=== PATIENT | male | born 1955 | race Caucasian/White ===

== ENCOUNTER 2019-01-24 18:02 | Inpatient (IN) | payer MEDICARE, OTHER ==
[~2019-01-24] VITALS: Ht 167.6 cm; Wt 68.0 kg
--- NOTE | ~2019-01-24 | HEMODYNAMI ---
PATIENT:LIDIA GOFF MEDICAL RECORD: [id number] : 51 LOCATION:[facility] D.2137 ADMISSION DATE: 01/24/19 Generatedon:02/07/201914:07 Patient name: LIDIA GOFF Patient #: [id number] SSN: : 1955 Date of study: 02/07/2019 Page: Of Hemodynamic Procedure Report Patient Data Patient Demographics Procedure consent was obtained First Name: LIDIA Gender: Male Last Name: SHELL : 1955 [facility] Initial: L Age: 63 year(s) Patient #: [id number] Race: Unknown Additional ID: [id number] Contact details [address]: [address] [place] [address] State: [place] City: [place] Zip code: [address] Past Medical History Allergies Allergen Reaction Date Comments Reported Other allergy 02/01/2019 BACTRIM AND SULFA Admission Admission Data Admission Date: 01/24/2019 Admission Time: 23:42 Room #: 2137 Procedure Procedure Types Cath Procedure Peripheral Cath Diagnostic Procedure Biliary Cholangio Thru Existing Procedure Description Procedure Date Procedure Date: 02/07/2019 Procedure Start Time: 11:07 Procedure Staff Name Function Romario Hagen MD Performing Physician José Luis Garcia RT Monitor Fuentes Hurtado Jr, CRNA Additional personnel Radha Merchant RN Nurse Shy Bean RN Nurse OK GREGORY RT Scrub Procedure Data Cath Procedure Fluoroscopy Diagnostic fluoroscopy Total fluoroscopy Time: 37 time: 37 min min Diagnostic fluoroscopy Total fluoroscopy dose: dose: 1461 mGy 1461 mGy Contrast Material Contrast Material Type Amount (ml) Isovue 300 50 Procedure Medications Medication Administration Route Dosage Lidocaine 1% added to field 20 Heparin Flush Bag added to field 3 bags (1000units/500ml NS) Rocephin I.V. 2 g Hemodynamics Rest Pre Cath Intra NCS Post Cath Medications Time Medication Route Dose Verified Delivered Reason Notes Effec tiveness by by 10:58:00 Lidocaine 1% added 20ml Romario Doss used for to vial Hieu Hagen MD procedure field TATE 10:58:22 Heparin Flush added 3 Romario Romario used for Bag to bags Hieu Hagen MD procedure (1000units/500ml field TATE NS) 11:13:05 Rocephin I.V. 2g Romario Radha Per Mayur Hagen RN physician Procedure Log Time Note 10:34:38 Shy Bean RN sent for patient. Start room use. 10:34:50 Time tracking: Regular hours (M-F 7:00 - 5:00) 10:34:55 Plan of Care:Hemodynamics will remain stable., Cardiac rhythm will remain stable., Comfort level will be maintained., Respiratory function will remain adequate., Patient/ family verbilizes understanding of procedure., Procedure tolerated without complication., Recovers from procedure without complications.. 10:35:02 Patient received from [place] to IR Alert and oriented. Tansferred to table in Supine position. 10:35:04 Warm blankets applied, and oneida hugger turned on for patient comfort. 10:35:05 Correct patient and procedure confirmed by team. 10:35:07 Signed procedure consent form obtained from patient. 10:35:08 - 10:35:09 Full Disclosure recording started 10:35:19 H&P Date Dictated: 02/07/2019 Within 30 days and on chart.. 10:35:21 - 10:35:42 SEE ANESTHESIA NOTE FOR PRE PROCEDURE ANESTHESIA 10:37:29 Fuentes Hurtado Jr, CRNA present and monitoring patient for TIVA. 10:37:48 Use device set IR Diagnostic 10:37:50 Sterile Angiographic Pack opened to sterile field. 10:37:51 Bag Decanter (2002S) opened to sterile field. 10:37:52 Tegaderm 4 x 4 (1626W) opened to sterile field. 10:58:00 Lidocaine 1% 20ml vial added to field was administered by Romario Hagen MD; used for procedure; 10:58:22 Heparin Flush Bag (1000units/500ml NS) 3 bags added to field was administered by Romario Hagen MD; used for procedure; 10:59:39 Right Abdomen was prepped with chlora-prep and draped in sterile fashion. 10:59:41 Alarms reviewed by R. N. 10:59:42 Alarms reviewed by R. N. 11:06:41 Physician arrived 11:06:42 --------ALL STOP TIME OUT------ 11:06:43 Final Timeout: patient, procedure, and site verified with staff and physician. All members of the team are in agreement. 11:06:49 Right abdomen site verified by team. 11:06:53 Maximum allowable Isovue 300 dose 300ml. Physician notified. (300ml for normal creatinines. For patients with creatinine of 1.7 or higher multiply weight(kg) x 5 divided by creatinine.) 11:06:57 Fire Safety Assessment: A--An alcohol-based skin anteseptic being used preoperatively., C--Open oxygen or nitrous oxide is being used. 11:07:01 Sedation plan: General Anesthesia Medication:General Anesthesia 11:07:06 Procedure started. 11:07:11 Local anesthetic to Abdominal area with Lidocaine 1% by Romario Hagen MD.INITIAL ACCESS ONLY 11:07:24 BAG, DRAINAGE EMPTY 600ML W/BHUPINDER (ZJV731) opened to sterile field. 11:07:25 STOPCOCK 1-Way Male Rotating (W46653) opened to sterile field. 11:07:25 Cook BILIARY 12 FR drainage catheter (L41969) opened to sterile field. 11:07:26 COOK 12FR 45 CM ANLO SHEATH opened to sterile field. 11:07:26 COOK 12FR 45 CM ANLO SHEATH opened to sterile field. 11:13:05 Rocephin 2g I.V. was administered by Radha Merchant RN; Per physician; 11:13:25 AMPLATZ Super stiff 180cm wire ([id number]) opened to sterile field. 11:13:26 GLIDE CATHETER 5FR ANGLED 65cm (CG507) opened to sterile field. 11:13:27 GLIDE WIRE Angled Super Stiff 180cm (JY9752) opened to sterile field. 11:16:00 CHOICE PT Extra Support J 300cm guide wire ([id number]) opened to steril e field. 13:15:05 STOPCOCK 3-Way Large Bore (O98844) opened to sterile field. 13:23:03 Lanie 5Fr OTW embolectomy catheter opened to sterile field. 13:27:54 SNARE GOOSENECK 20MM LOOP 120C opened to sterile field. 13:43:59 Procedure ended.(Physican Out) 13:44:27 Fluoroscopy time 37.00 minutes. 13:44:46 Fluoroscopy dose: 1461 mGy 13:44:46 Flurop Dose total: 1461 13:44:48 Sharps counted by scrub and verified by R.N. 13:49:27 SEE ANESTHESIA NOTE FOR POST PROCEDURE ANESTHESIA 13:49:34 Post-op/insertion site Right Abdominal area dressed using a 4 x 4 and Tegaderm. 13:49:49 Post Abdominal area:stable 13:50:41 Procedure and supply charges have been captured, reviewed, submitted an d are correct. 13:57:56 Contrast amount:Isovue 300 50ml. 14:06:23 Report given to Recovery Room. 14:06:31 Patient transfered to Recovery Room with Bed. Device Usage Item Name Manufacture Quantity Catalog Number Hospital Part Current Mini [facility] Lot# / Charge Number Stock Stock Serial# Code Sterile Cardinal 1 [id number] [id number] 5 Angiographic Health Pack Bag Decanter Microtek 1 [id number] 80454 748676 5 () Medical Inc. Tegaderm 4 x 3M 1 1626W 601066 689931 476349 5 4 (1626W) BAG, Merit 1 [id number] 524044 661759 059757 5 DRAINAGE Medical EMPTY 600ML W/BHUPINDER (MFG279) STOPCOCK Cook Medical 1 [id number] 847733 50470 913413 5 1-Way Male Rotating (G44408) Cook BILIARY Cook Medical 1 N96587 974648 510331 183706 5 [id number] 12 FR drainage catheter (S85324) COOK 12FR 45 Cook Medical 2 P18495 522958 940243 739513 5 CM ANLO SHEATH AMPLATZ [place] 1 [id number] 416904 949327 384449 5 [id number] Super stiff Scientific 180cm wire ([id number]) GLIDE Terumo 1 CG507 926768 180995 5 CATHETER 5FR ANGLED 65cm (CG507) GLIDE WIRE Terumo 1 SO2350 562490 035687 5 Angled Super Stiff 180cm (ED6982) CHOICE PT [place] 1 [id number] 706831 640650 531293 5 [id number] Extra Scientific Support J 300cm guide wire ([id number]) [facility] 1 F35133 876256 4376 868303 [id number] 3-Way Large Bore (E72432) Lanie 5Fr Garber 1 [id number] 123090 564466 520939 5 [facility] Lifesciences embolectomy catheter SNARE Medtronic 1 BZ0397 073473 854302 873527 5 [id number] GOOSENECK 20MM LOOP 120C Signature Audit [place] Stage Time Signature Unsigned Intra-Procedure 02/07/2019 José Luis 2:07:11 PM Krissyield RT (R) (CV) Signatures Monitor : José Luis Signature : Jose RT Date : Time : [address] [place] [address]
--- NOTE | ~2019-01-24 | HEMODYNAMI ---
PATIENT:LIDIA GOFF MEDICAL RECORD: [id number] : 51 [facility] AD[facility]ION DATE: 01/24/19 Generatedon:02/01/201916:17 Patient name: LIDIA GOFF Patient #: [id number] SSN: : 1955 Date of study: 02/01/2019 Page: Of Hemodynamic Procedure Report Patient Data Patient Demographics Procedure consent was obtained First Name: LIDIA Gender: Male Last Name: SHELL : 1955 [facility] Initial: L Age: 63 year(s) Patient #: [id number] Race: Unknown Additional ID: [id number] Contact details Address: [address] [place] [address] State: [place] City: [place] Zip code: [address] Past Medical History Allergies Allergen Reaction Date Comments Reported Other allergy 02/01/2019 BACTRIM AND SULFA Admission Admission Data Admission Date: 01/24/2019 Admission Time: 23:42 Room #: D.2137 Procedure Procedure Types Cath Procedure Peripheral Cath Diagnostic Procedure Biliary Procedure Description Procedure Date Procedure Date: 02/01/2019 Procedure Start Time: 14:01 Procedure Staff Name Function Romario Hagen MD Performing Physician José Luis Garcia RT Monitor OK GREGORY RT Scrub Shy Bean RN Nurse Radha Merchant RN Nurse Procedure Data Cath Procedure Fluoroscopy Diagnostic fluoroscopy Total fluoroscopy Time: time: 36.9 min 36.9 min Diagnostic fluoroscopy Total fluoroscopy dose: 717 dose: 717 mGy mGy Contrast Material Contrast Material Type Amount (ml) Isovue 300 115 Procedure Medications Medication Administration Route Dosage Versed I.V. 1 mg Fentanyl I.V. 50 mcg Heparin Flush Bag added to field 1 bags (1000units/500ml NS) Versed I.V. 1 mg Fentanyl I.V. 50 mcg Lidocaine 1% added to field 20 Versed I.V. 1 mg Fentanyl I.V. 50 mcg Rocephin I.V. 2 Versed I.V. 1 mg Fentanyl I.V. 50 mcg Versed I.V. 1 mg Fentanyl I.V. 50 mcg Versed I.V. 1 mg Fentanyl I.V. 50 mcg Hemodynamics Rest Heart Rate: 66 (bpm) Snapshots Pre Cath Intra NCS Post Cath Vital Signs Time Heart Resp SPO2 etCO2 NIBP (mmHg) Rhythm Pain Sedation Rate (ipm) (%) (mmHg) Status Level (bpm) 13:47:53 73 19 99 0 164/83(121) NSR 0 (11) 10(A) , No pain 13:52:15 67 13 100 0 164/75(122) NSR 0 (11) 10(A) , No pain 13:56:35 66 19 100 0 168/74(119) NSR 0 (11) 9(A) , No pain 14:00:57 64 12 99 0 165/74(119) NSR 0 (11) 9(A) , No pain 14:05:17 66 18 100 19.4 170/76(121) NSR 0 (11) 8(A) , No pain 14:09:43 67 9 100 27.6 153/65(91) NSR 0 (11) 8(A) , No pain 14:14:01 81 5 100 38.8 159/72(95) NSR 0 (11) 8(A) , No pain 14:18:22 78 6 100 38.8 156/70(105) NSR 0 (11) 8(A) , No pain 14:23:20 75 7 100 38.1 Measuring NSR 0 (11) 8(A) , No pain 14:23:45 77 7 100 38.1 140/62(108) NSR 0 (11) 8(A) , No pain 14:28:01 85 7 100 29.1 151/64(111) NSR 0 (11) 8(A) , No pain 14:32:19 84 8 100 29.8 155/72(116) NSR 0 (11) 8(A) , No pain 14:36:39 85 9 100 35.8 161/69(111) NSR 0 (11) 8(A) , No pain 14:41:01 84 10 100 33.6 157/68(104) NSR 0 (11) 8(A) , No pain 14:45:24 80 9 100 35.8 145/68(105) NSR 0 (11) 8(A) , No pain 14:49:38 78 15 100 31.4 159/75(111) NSR 0 (11) 8(A) , No pain 14:53:58 79 13 27.6 167/70(107) NSR 0 (11) 8(A) , No pain 14:58:22 82 19 32.8 156/72(97) NSR 0 (11) 8(A) , No pain 15:02:44 84 16 100 32.8 166/66(105) NSR 0 (11) 8(A) , No pain 15:07:09 85 12 99 39.6 144/68(110) NSR 0 (11) 8(A) , No pain 15:11:23 80 12 97 37.3 153/79(98) NSR 0 (11) 8(A) , No pain 15:15:41 79 15 99 29.1 162/74(104) NSR 0 (11) 8(A) , No pain 15:20:03 79 10 35.1 158/71(124) NSR 0 (11) 8(A) , No pain 15:24:21 76 13 95 41.9 166/76(108) NSR 0 (11) 8(A) , No pain 15:28:45 72 12 100 38.1 164/71(112) NSR 0 (11) 8(A) , No pain 15:33:05 77 13 100 32.1 182/81(119) NSR 0 (11) 8(A) , No pain 15:37:32 86 8 100 42.6 173/81(109) NSR 0 (11) 8(A) , No pain 15:41:54 83 9 100 38.8 181/82(121) NSR 0 (11) 8(A) , No pain 15:46:20 83 8 100 42.6 154/66(125) NSR 0 (11) 8(A) , No pain 15:51:19 87 11 100 41.1 Measuring NSR 0 (11) 8(A) , No pain 15:51:35 86 12 100 40.3 184/78(127) NSR 0 (11) 8(A) , No pain 15:56:04 89 9 100 41.8 144/69(100) NSR 0 (11) 8(A) , No pain 16:00:20 92 9 100 44.1 155/67(106) NSR 0 (11) 8(A) , No pain 16:04:38 88 9 100 43.3 146/64(86) NSR 0 (11) 8(A) , No pain 16:08:56 86 9 100 35.8 148/66(104) NSR 0 (11) 8(A) , No pain 16:13:12 86 10 100 34.3 165/74(110) NSR 0 (11) 8(A) , No pain Medications Time Medication Route Dose Verified Delivered Reason Notes Effe ctiveness by by 13:55:32 Lidocaine 1% added 20ml Romario Doss for local to vial Hieu Hagen MD anesthetic field TATE 13:55:33 Heparin Flush added 1 Romario Doss used for Bag to bags Hieu Hagen MD procedure (1000units/500ml field TATE NS) 14:04:58 Versed I.V. 1 mg Romario Begum for Vikas Hagen RN sedation 14:05:14 Fentanyl I.V. 50 Romario Begum for mcg Vikas Hagen RN sedation 14:10:37 Versed I.V. 1 mg Romario Doss for Hieu Hagen MD sedation 14:10:47 Fentanyl I.V. 50 Romario Doss for Hieu Whitten MD sedation 14:23:38 Versed I.V. 1 mg Romario Begum for Vikas Hagen RN sedation 14:23:51 Fentanyl I.V. 50 Romario Begum for mcg Vikas Hagen RN sedation 14:33:51 Rocephin I.V. 2 gm Romario Begum Per Vikas Hagen RN physician 14:54:07 Versed I.V. 1 mg Romario Begum for Vikas Hagen RN sedation 14:54:17 Fentanyl I.V. 50 Romario [place]ody for mcg Vikas Hagen RN sedation 15:10:54 Versed I.V. 1 mg Romario Begum for Vikas Hagen RN sedation 15:11:04 Fentanyl I.V. 50 Romario Begum for mcg Vikas Hagen RN sedation 15:27:38 Versed I.V. 1 mg Romario Begum for Vikas Hagen RN sedation 15:27:50 Fentanyl I.V. 50 Romario Begum for mcg Vikas Hagen RN sedation Procedure Log Time Note 13:20:30 José Luis Garcia RT (R) (CV) sent for patient. Start room use. 13:20:42 Time tracking: Regular hours (M-F 7:00 - 5:00) 13:20:47 Plan of Care:Hemodynamics will remain stable., Cardiac rhythm will remain stable., Comfort level will be maintained., Respiratory function will remain adequate., Patient/ family verbilizes understanding of procedure., Procedure tolerated without complication., Recovers from procedure without complications.. 13:20:57 Patient received from [place] to IR Alert and oriented. Tansferred to table in Supine position. 13:20:58 Correct patient and procedure confirmed by team. 13:21:04 Signed procedure consent form obtained from patient. 13:21:05 ECG and BP/O2 sat monitors applied to patient. 13:21:06 Full Disclosure recording started 13:21:07 - 13:21:12 H&P Date Dictated: 02/01/2019 Within 30 days and on chart.. 13:21:12 Pre-procedure instructions explained to patient. 13:21:13 Pre-op teaching completed and patient verbalized understanding. 13:21:16 Family unavailable. 13:21:18 Patient NPO since Midnight. 13:21:23 Use device set IR Diagnostic 13:21:25 Bag Decanter (2002S) opened to sterile field. 13:21:25 Sterile Angiographic Pack opened to sterile field. 13:21:25 Tegaderm 4 x 4 (1626W) opened to sterile field. 13:33:32 Patient allergic to Other allergyBACTRIM AND SULFA 13:45:35 Is the patient allergic to Iodine/contrast media? No. 13:45:36 Is patient on blood thinner?No 13:45:38 Patient diabetic? Yes. 13:45:39 If diabetic: On Metformin? No 13:45:40 - 13:45:40 ----Pre-sedation anethsthesia assessment.---- 13:45:43 Previous problem with sedation/anesthesia? No ? 13:45:44 Snore? No 13:45:46 Sleep apnea? No 13:45:48 Deviated septum? No 13:45:50 Opens mouth fully? Yes 13:45:52 Sticks out tongue? Yes 13:45:54 Airway obstruction? No ? 13:45:57 Dentures? No ? 13:45:59 - 13:46:03 Patient pain scale 0/10 NO PAIN. 13:46:12 IV patent on arrival in left hand with 0.9% NaCl at [facility]. 13:46:16 Sharps counted by scrub and verified by R.NKaushik 13:46:17 Alarms reviewed by R. N. 13:46:23 Right abdomen area was prepped with chlora-prep and draped in sterile fashion 13:46:43 Baseline sample Acquired. :46:43 Vital chart was started 13:55:32 Lidocaine 1% 20ml vial added to field was administered by Romario Hagen MD; for local anesthetic; 13:55:33 Heparin Flush Bag (1000units/500ml NS) 1 bags added to field was administered by Romario Hagen MD; used for procedure; 14:00:39 Physician arrived 14:00:40 --------ALL STOP TIME OUT------ 14:00:41 Final Timeout: patient, procedure, and site verified with staff and physician. All members of the team are in agreement. 14:00:57 Right abdomen site verified by team. 14:01:04 Maximum allowable Isovue 300 dose 300ml. Physician notified. (300ml for normal creatinines. For patients with creatinine of 1.7 or higher multiply weight(kg) x 5 divided by creatinine.) 14:01:14 Fire Safety Assessment: A--An alcohol-based skin anteseptic being used preoperatively., C--Open oxygen or nitrous oxide is being used. 14:01:18 Sedation plan: IV Moderate Sedation Medication:Versed, Fentanyl 14:01:44 Procedure started. 14:01:48 Local anesthetic to Abdominal area with Lidocaine 1% by Romario Hagen MD.INITIAL ACCESS ONLY 14:01:51 KIT, INTRODUCER ACCUSTICK II W/C ([id number]) opened to sterile field. 14:01:53 IV Extension Set opened to sterile field. 14:02:02 CHIBA 22 X 15 needle opened to sterile field. 14:04:58 Versed 1 mg I.V. was administered by Shy Bean RN; for sedation; 14:05:14 Fentanyl 50 mcg I.V. was administered by Shy Bean RN; for sedation ; 14:10:37 Versed 1 mg I.V. was administered by Romario Hagen MD; for sedation; 14:10:47 Fentanyl 50 mcg I.V. was administered by Romario Hagen MD; for sedation; 14:22:47 CHIBA 22 X 15 needle opened to sterile field. 14:23:38 Versed 1 mg I.V. was administered by Shy Bean RN; for sedation; 14:23:51 Fentanyl 50 mcg I.V. was administered by Shy Bean RN; for sedation ; 14:33:51 Rocephin 2 gm I.V. was administered by Shy Bean RN; Per physician; 14:54:07 Versed 1 mg I.V. was administered by Shy Bean RN; for sedation; 14:54:17 Fentanyl 50 mcg I.V. was administered by Shy Bean RN; for sedation ; 15:05:27 CHIBA 22 X 15 needle opened to sterile field. 15:10:54 Versed 1 mg I.V. was administered by Shy Bean RN; for sedation; 15:11:04 Fentanyl 50 mcg I.V. was administered by Shy Bean RN; for sedation ; 15:18:09 NITINOL .018 80cm wire (F058557) opened to sterile field. 15:23:55 NITINOL .018 80cm wire (A369130) opened to sterile field. 15:26:20 CHIBA 22 X 15 needle opened to sterile field. 15:27:38 Versed 1 mg I.V. was administered by Shy Bean RN; for sedation; 15:27:50 Fentanyl 50 mcg I.V. was administered by Shy Bean RN; for sedation ; 15:30:46 STOPCOCK 3-Way Large Bore (R78119) opened to sterile field. 15:31:50 GLIDE WIRE Angled Super Stiff 180cm (VL3921) opened to sterile field. 15:32:56 GLIDE CATHETER 5FR ANGLED 65cm (CG507) opened to sterile field. 15:37:10 AMPLATZ Super stiff 180cm wire ([id number]) opened to sterile field. 15:37:10 ARROW SUPERFLEX 8FR 45CM sheath opened to sterile field. 15:41:13 Cook BILIARY 10.2 FR drainage catheter (L28506) opened to sterile field . 15:45:57 INFLATOR BasixTOUCH (SW4302) opened to sterile field. 15:46:33 Inflate balloon Inflation number: 1 A Evercross 10 x 40 x 135 Balloon ([id number]) was prepped and advanced across the Undefined1, then inflated to 8 YINA for 0:07 (min:sec). 15:55:59 GELACIO ALVARADO FROM ANESTHESIA HERE FOR TIVA AT 1545 15:59:47 BAG, DRAINAGE EMPTY 600ML W/BHUPINDER (ENM735) opened to sterile field. 15:59:57 Procedure ended.(Physican Out) 16:00:26 Fluoroscopy time 36.90 minutes. 16:00:31 Fluoroscopy dose: 717 mGy 16:00:31 Flurop Dose total: 717 16:00:33 Sharps counted by scrub and verified by R.N. 16:00:34 Insertion/operative site no bleeding no hematoma. 16:00:40 Post-op/insertion site Right Abdominal area dressed using a 4 x 4 and Tegaderm. 16:00:47 Post Abdominal area:stable 16:06:54 Contrast amount:Isovue 300 115ml. 16:06:59 Procedure and supply charges have been captured, reviewed, submitted an d are correct. 16:16:21 Report given to [facility]. 16:16:24 Patient transfered to [facility] with Bed. 16:17:51 Vital chart was stopped Intervention Summary Intervention Notes Time ActionType Lesion and Equipment Used Action# Pressure Duration Attributes 15:46:33 Inflate Undefined1 Evercross 10 x 1 8 00:07 balloon 40 x 135 Balloon ([id number]) Device Usage Item Name Manufacture Quantity Catalog Number Hospital Part Current M inimal Lot# / Charge Number Stock Stock Serial# Code Bag Decanter Microtek 1 [id number] 86848 215522 5 () edulio Inc. Sterile Cardinal 1 [id number] 113430 241816 5 Angiographic Health Pack Tegaderm 4 x 4 3M 1 1626W 552703 710138 395969 5 (1626W) KIT, INTRODUCER [place] 1 [id number] 113246 721318 575142 5 [id number] ACCUSTICK II Scientific W/C ([id number]) IV Extension Hospira 1 81706-34 759874 41472 584274 5 [id number] Set CHIBA 22 X 15 Cook Medical 4 Q94217 605549 530694 5 2938595 needle 1627162 9181308 NITINOL .018 Medtronic 2 Z800451 473697 996420 5 [id number] 80cm wire [id number] (L703739) STOPCOCK 3-Way [place] [facility] 1 G74075 469537 4554 568602 5 [id number] Large Bore (L87498) GLIDE WIRE Terumo 1 SS8085 175492 896857 5 Angled Super Stiff 180cm (NV5407) GLIDE CATHETER Terumo 1 CG507 615912 091655 5 5FR ANGLED 65cm (CG507) AMPLATZ Super [place] 1 [id number] 946791 262334 431933 5 [id number] stiff 180cm Scientific wire ([id number]) ARROW SUPERFLEX Teleflex 1 CL-03476 155903 898701 5 [id number] 8FR 45CM sheath Cook BILIARY Cook Medical 1 D49446 588927 659656 390204 5 1381779 10.2 FR drainage catheter (Z19591) INFLATOR Merit 1 DV9033 705149 617396 773500 5 BasixTOUCH Medical (KL2483) [place] 10 x Medtronic 1 [id number] 048102 271000 270509 5 40 x 135 Balloon ([id number]) BAG, DRAINAGE Merit 1 KRA663 361672 748401 774447 5 EMPTY 600ML Medical W/BHUPINDER (GQE475) Signature Audit [place] Stage Time Signature Unsigned Intra-Procedure 02/01/2019 José Luis 4:17:46 PM Jose RT (R) (CV) Signatures Monitor : José Luis Signature : Jose RT Date : Time : [id number] [place] [address]
--- NOTE | ~2019-01-24 | HEMODYNAMI ---
PATIENT:LIDIA GOFF MEDICAL RECORD: [id number] : 51 LOCATION:[facility] D.2137 ADMISSION DATE: 01/24/19 Generatedon:02/05/201912:54 Patient name: LIDIA GOFF Patient #: [id number] SSN: : 1955 Date of study: 02/05/2019 Page: Of Hemodynamic Procedure Report Patient Data Patient Demographics Procedure consent was obtained First Name: LIDIA Gender: Male Last Name: SHELL : 1955 [facility] Initial: L Age: 63 year(s) Patient #: [id number] Race: Unknown Additional ID: [id number] Contact details [address]: [address] [place] [address] State: [place] City: [place] Zip code: [address] Past Medical History Allergies Allergen Reaction Date Comments Reported Other allergy 02/01/2019 BACTRIM AND SULFA Admission Admission Data Admission Date: 01/24/2019 Admission Time: 23:42 Room #: 2137 Procedure Procedure Types Cath Procedure Peripheral Cath Diagnostic Procedure Biliary Cholangio Thru Existing Procedure Description Procedure Date Procedure Date: 02/05/2019 Procedure Start Time: 11:27 Procedure Staff Name Function Romario Hagen MD Performing Physician José Luis Garcia RT Monitor Radha Merchant RN Nurse OK GREGORY RT Scrub Dhruv Silva CRNA Additional personnel Procedure Data Cath Procedure Fluoroscopy Diagnostic fluoroscopy Total fluoroscopy Time: time: 23.9 min 23.9 min Diagnostic fluoroscopy Total fluoroscopy dose: 847 dose: 847 mGy mGy Contrast Material Contrast Material Type Amount (ml) Isovue 300 20 Diagnostic catheters Device Type Used For End Catheter Placement Angiodynamics SOS OMNI 2 NON B 5FR 65CM catheter ([id number]) Procedure Medications Medication Administration Route Dosage Heparin Flush Bag added to field 1 bags (1000units/500ml NS) Lidocaine 1% added to field 20 Hemodynamics Rest Pre Cath Intra NCS Post Cath Medications Time Medication Route Dose Verified Delivered Reason Notes Effec tiveness by by 11:25:12 Heparin Flush added 1 Romario Doss used for Bag to bags Hieu Hagen MD procedure (1000units/500ml field NS) 11:25:29 Lidocaine 1% added 20ml Romario Doss used for to vial Hieu Hagen MD procedure field Procedure Log Time Note 10:42:17 José Luis Garcia RT (R) (CV) sent for patient. Start room use. 10:42:19 Time tracking: Regular hours (M-F 7:00 - 5:00) 10:43:03 Patient received from Pivot II to IR Alert and oriented. Tansferred to table in Supine position. 10:43:13 Warm blankets applied, and oneida hugger turned on for patient comfort. 10:43:14 Correct patient and procedure confirmed by team. 10:43:21 Signed procedure consent form obtained from patient. 10:49:40 Full Disclosure recording started 10:49:40 - 10:50:02 SEE ANESTHESIA NOTE FOR PRE PROCEDURE ANESTHESIA 10:50:04 - 11:14:14 Pre-procedure instructions explained to patient. 11:14:15 Pre-op teaching completed and patient verbalized understanding. 11:14:20 Use device set IR Diagnostic 11:14:23 Bag Decanter (2002S) opened to sterile field. 11:14:23 Sterile Angiographic Pack opened to sterile field. 11:14:23 Tegaderm 4 x 4 (1626W) opened to sterile field. 11:14:34 Alarms reviewed by RKaushik N. 11:14:35 Sharps counted by scrub and verified by R.N. 11:14:41 Right Abdomen was prepped with chlora-prep and draped in sterile fashion. 11:15:05 Dhruv Silva CRNA present and monitoring patient for TIVA. 11:25:12 Heparin Flush Bag (1000units/500ml NS) 1 bags added to field was administered by Romario Hagen MD; used for procedure; 11:25:29 Lidocaine 1% 20ml vial added to field was administered by Romario Hagen MD; used for procedure; 11:26:54 Physician arrived 11::55 --------ALL STOP TIME OUT------ 11::56 Final Timeout: patient, procedure, and site verified with staff and physician. All members of the team are in agreement. 11:27:00 Right abdomen site verified by team. 11:27:08 Maximum allowable Isovue 300 dose 300ml. Physician notified. (300ml for normal creatinines. For patients with creatinine of 1.7 or higher multiply weight(kg) x 5 divided by creatinine.) 11:27:17 Fire Safety Assessment: A--An alcohol-based skin anteseptic being used preoperatively., C--Open oxygen or nitrous oxide is being used. 11:27:22 Sedation plan: General Anesthesia Medication:General Anesthesia 11:27:51 Procedure started. 11:35:33 STOPCOCK 1-Way Male Rotating (H85815) opened to sterile field. 11:37:03 GLIDE CATHETER 5FR ANGLED 65cm (CG507) opened to sterile field. 11:37:03 GLIDE WIRE Angled Super Stiff 180cm (EC9045) opened to sterile field. 11:39:59 ARROW SUPERFLEX 8FR 45CM sheath opened to sterile field. 11:40:19 AMPLATZ Super stiff 180cm wire ([id number]) opened to sterile field. 11:40:19 BAG, DRAINAGE EMPTY 600ML W/BHUPINDER (JXW535) opened to sterile field. 11:40:20 Cook BILIARY 10.2 FR drainage catheter (D92257) opened to sterile field . 11:42:27 Lanie 5Fr OTW embolectomy catheter opened to sterile field. 11:42:29 TORQUE DEVICE PLASTIC .038 ( TD01) opened to sterile field. 11:56:47 CHOICE PT Extra Support J 300cm guide wire ([id number]) opened to steril e field. 11:57:13 Ensnare enodo system 12-20 opened to sterile field. 12:05:12 SNARE GOOSENECK 20MM LOOP 120C opened to sterile field. 12:05:16 GLIDE CATHETER 5FR COBRA 65cm (CG502) opened to sterile field. 12:27:51 A Angiodynamics SOS OMNI 2 NON B 5FR 65CM catheter ([id number]) was advanced over the wire and used for . 12:32:44 SUTURE ETHILON 2-0 BLK MONO FS opened to sterile field. 12:34:33 Tegaderm 6 x 8 (1628) opened to sterile field. 12:34:34 Tegaderm 6 x 8 (1628) opened to sterile field. 12:35:57 Procedure ended.(Physican Out) 12:40:47 Fluoroscopy time 23.90 minutes. 12:40:52 Fluoroscopy dose: 847 mGy 12:40:52 Flurop Dose total: 847 12:41:09 Sharps counted by scrub and verified by R.N. 12:41:11 Insertion/operative site no bleeding no hematoma. 12:41:16 Post-op/insertion site Right Abdominal area dressed using a 4 x 4 and Tegaderm. 12:41:26 Post Abdominal area:stable 12:41:28 Patient needs reinforcement of post procedure teaching. 12:41:29 Procedure and supply charges have been captured, reviewed, submitted an d are correct. 12:44:10 Contrast amount:Isovue 300 20ml. 12:54:22 Report given to Recovery Room. 12:54:25 Patient transfered to Recovery Room with Bed. Device Usage Item Name Manufacture Quantity Catalog Number [facility] Lot# / Charge Number Stock Stock Serial# Code Bag Decanter Microtek 1 [id number] 22575 127922 5 () Medical Inc. Sterile Cardinal 1 [id number] 181934 918038 5 Angiographic Health Pack Tegaderm 4 x 3M 1 1626W 456640 051979 [id number] 5 4 (1626W) STOPCODynamic Recreation Medical 1 K60161 466548 08036 636040 [id number] 1-Way Male Rotating (A83799) GLIDE Terumo 1 CG507 820790 589414 5 CATHETER 5FR ANGLED 65cm (CG507) GLIDE WIRE Terumo 1 WG2167 091565 309832 5 Angled Super Stiff 180cm (JP8032) ARROW Teleflex 1 CL-43222 049522 938307 5 [id number] SUPERFLEX 8FR 45CM sheath AMPLATZ Super Lindrith 1 [id number] 332723 048191 022663 5 [id number] stiff 180cm Scientific wire ([id number]) BAG, DRAINAGE [facility] 1 IVX019 158472 923653 364160 5 EMPTY 600ML W/BHUPINDER (FCF591) Cook BILIARY [employer] 1 W80455 514668 364636 497941 5 [id number] 10.2 FR drainage catheter (Q85609) Lanie 5Fr Garber 1 [id number] 106585 705451 292584 5 [facility] Lifesciences embolectomy catheter TORQUE DEVICE Lindrith 1 TD01 728169 876022 351264 5 PLASTIC .038 Scientific ( TD01) CHOICE PT Lindrith 1 [id number] 391205 485277 334910 5 [id number] Extra Support Scientific J 300cm guide wire ([id number]) Dominic schneider [facility] 1 [id number] 311715 72364 383115 1 [id number] system 12-20 SNARE Medtronic 1 MR4442 773678 651132 766899 5 [id number] GOOSENECK 20MM LOOP 120C GLIDE Terumo 1 CG502 437905 132629 5 CATHETER 5FR COBRA 65cm (CG502) Angiodynamics Angiodynamics 1 [id number] 884467 06034 869539 5 SOS OMNI 2 NON B 5FR 65CM catheter ([id number]) SUTURE Ethicon 1 664H 511753 557779 5 ETHILON 2-0 BLK MONO FS Tegaderm 6 x 3M 2 1628 990980 166550 5 8 (0478) Signature Audit [place] Stage Time Signature Unsigned Intra-Procedure 02/05/2019 José Luis 12:54:54 PM Shuffield RT (R) (CV) Signatures Monitor : José Luis Signature : [place]ield RT Date : Time : [facility] [address] [facility] [place] [address]
[2019-01-24] MEDS ORDERED: PROTONIX20 MG (18:21)
[2019-01-24] MEDS ORDERED: METAMUCIL PACKE1 PKT PO (18:22)
[2019-01-24] MEDS ORDERED: ANORO ELLIPTA1 EACH INH (18:29)
[2019-01-24] MEDS ORDERED: ELAVIL25 MG PO (18:30)
[2019-01-24] MEDS ORDERED: GLUCOPHAGE500 MG PO (18:30)
[2019-01-24] MEDS ORDERED: PROTONIX40 MG PO (18:30)
[2019-01-24] MEDS ORDERED: SEROQUEL200 MG PO (18:31)
[2019-01-24] MEDS ORDERED: SEROQUEL50 MG PO (18:31)
[2019-01-24] MEDS ORDERED: FLUTICASONE PRO16 GM NASAL (18:32)
[2019-01-24] MEDS ORDERED: GABAPENTIN100 MG PO (18:32)
[2019-01-24 18:50] LABS: BASOPHILS 0.5 % (0-2); EOSINOPHILS 1.7 % (0-7); HEMATOCRIT 37.7 % (42.0-54.0); HEMOGLOBIN 13.2 g/dL (13.5-17.5); IMMATURE GRANULOCYTES 0.4 % (0-5); LYMPHOCYTES 21.4 % (15-50); MCH 32.4 pg (26.0-34.0); MCV 92.6 fL (80.0-100.0); MEAN PLATELET VOLUME 9.7 fL (7.4-10.4); MONOCYTES 10.1 % (2-11); NEUTROPHILS 65.9 % (40-80); PLATELET COUNT 277 10x3/uL (130-400); RBC 4.07 10x6/uL (4.20-6.10); RDW 13.6 % (11.5-14.5); WBC 8.1 10x3/uL (4.8-10.8)
[2019-01-24 19:15] LABS: ALBUMIN 2.7 g/dL (3.4-5.0); ANION GAP 17.5 mmol/L (8-16); BILIRUBIN - TOTAL 5.46 mg/dL (0.2-1.3); CALCIUM 9.3 mg/dL (8.5-10.1); CARBON DIOXIDE 21.2 mmol/L (21.0-32.0); CREATININE - SERUM 1.2 mg/dL (0.6-1.3); POTASSIUM - SERUM 3.7 mmol/L (3.5-5.1); PROTEIN - SERUM 7.9 g/dL (6.4-8.2)
--- NOTE | 2019-01-24 21:00 | NUR ---
NOTIFIED PT OF THE NEED FOR A URINE SAMPLE. PT STATED "HE COULD NOT URINATE AT THIS TIME AND WE WERE NOT GOING TO CATH HIM IN ANY WAY OR FORM". PT IS VERY UPSET, MAD, AND HATEFUL BECAUSE HE DID NOT WANT TO COME TO ED FOR THE "SAME TEST TO BE RUN". NOTIFED DR. DORAN
--- NOTE | 2019-01-25 00:06 | NUR ---
RECIEVED REPORT FROM PEDRO GREEN IN ER. PT NOT ON FLOOR AT THIS TIME.
--- NOTE | 2019-01-25 00:18 | NUR ---
STOP TIME ON IVF 0020 WHEN PT TRANSFERED TO FLOOR
[2019-01-25 00:33] LABS: APPEARANCE CLEAR (CLEAR); BILIRUBIN 2+ (NEGATIVE); COLOR BROWN (YELLOW); GLUCOSE NEGATIVE (NEGATIVE); KETONE NEGATIVE (NEGATIVE); NITRITE NEGATIVE (NEGATIVE); PROTEIN NEGATIVE (NEGATIVE); SPECIFIC GRAVITY 1.015 (1.005-1.020); UROBILINOGEN NORMAL (NORMAL)
[2019-01-25 04:00] VITALS: BP 111/59
--- NOTE | 2019-01-25 04:22 | NUR ---
PT RESTING IN BED COMFORTABLY. RR EVEN AND UNLABORED. NO S/S OF DISTRESS. PT RUNNING 57 SINUS JING WITH PAC'S ON TELE PER WIRELESS CONSULTANT ANTONIA. BED LOW CALL LIGHT WITHIN REACH. WILL CONTINUE TO MONITOR.
--- NOTE | 2019-01-25 06:24 | NUR ---
PT FSBS 84. WILL CONTINUE TO MONITOR.
--- NOTE | 2019-01-25 07:45 | NUR ---
AM ROUNDS COMPLETED. INTRODUCED MYSELF TO PT PRIMARY RN FOR TODAYS SHIFT. PT IS A&O SITTING UP IN BED RESTING QUIETLY. RR NONLABORED ON RA. SHIFT ASSESSMENT COMPLETED. PT SEEMS AGITATED AND STATES HE DOESNT WANT TO BE HERE. DISEASE PROCESS EXPLAINED AND PT VERBALIZED UNDERSTANDING AND STATES HE IS JUST READY TO SEE THE DOCTOR. NO CURRENT NEEDS AT THIS TIME. CL IN REACH, BED IN LOWEST, SIDE RAILS X2. WILL CTM.
[2019-01-25 08:00] LABS: ALBUMIN 2.4 g/dL (3.4-5.0); ALKALINE PHOSPHATASE 175 U/L (46-116); ALT (SGPT) 171 U/L (10-68); BILIRUBIN - TOTAL 3.88 mg/dL (0.2-1.3); CALC OSMOLALITY 273 mosm/kg (275-300); CALCIUM 8.7 mg/dL (8.5-10.1); CARBON DIOXIDE 20.2 mmol/L (21.0-32.0); CHLORIDE - SERUM 103 mmol/L (98-107); GLUCOSE 87 mg/dL (74-106); POTASSIUM - SERUM 3.9 mmol/L (3.5-5.1); PROTEIN - SERUM 7.2 g/dL (6.4-8.2); SODIUM 137 mmol/L (136-145); UREA NITROGEN 16 mg/dL (7-18); eGFR NON AFRICAN AMERICAN 80 mL/min (90-120)
[2019-01-25 08:05] LABS: EOSINOPHILS 4.1 % (0-7); HEMATOCRIT 35.5 % (42.0-54.0); HEMOGLOBIN 12.2 g/dL (13.5-17.5); IMMATURE GRANULOCYTES 0.9 % (0-5); LYMPHOCYTES 25.9 % (15-50); MCH 31.9 pg (26.0-34.0); MCHC 34.4 g/dL (31.0-37.0); MCV 92.7 fL (80.0-100.0); MEAN PLATELET VOLUME 9.7 fL (7.4-10.4); MONOCYTES 10.8 % (2-11); NEUTROPHILS 57.3 % (40-80); PLATELET COUNT 293 10x3/uL (130-400); RBC 3.83 10x6/uL (4.20-6.10); RDW 13.5 % (11.5-14.5)
[2019-01-25 08:23] VITALS: BP 115/65
--- NOTE | 2019-01-25 09:31 | NUR ---
PT SITTING UP IN BED RESTING QUIETLY C/O NOT HAVING HIS MORNING BREATHING TX. OBTAINED ORDER FOR HOME MEDICATION AND PAGED PHARMACY TO BRING IT UP. PT VOICED THANKS AND DENIES ANY FURTHER NEEDS AT THIS TIME. WAITING ON HIS DAUGHTER TO COME VISIT. CL IN REACH. WILL CTM.
[2019-01-25 12:00] VITALS: BP 115/60
[2019-01-25 13:14] VITALS: BMI 25.0
--- NOTE | 2019-01-25 14:57 | NUR ---
PT WILL BE GOING FOR AN ERCP TOMORROW. PT VERBALIZED UNDERSTANDING AND SIGNED ALL CONSENTS. DENIES ANY QUESTIONS OR CONCERNS. NO CURRENT NEEDS AT THIS TIME. WILL CTM.
[2019-01-25 15:30] VITALS: BP 114/62
[2019-01-25 15:36] VITALS: BP 114/62
--- NOTE | 2019-01-25 19:20 | NUR ---
PT RESTING IN BED ALERT AMD ORIENTED. RR EVEN AND UNLABORED. NO S/S OF DISTRESS. PT DENIES ANY PAIN OR NEEDS AT THIS TIME. WILL CONTINUE TO MONITOR.
[2019-01-25 20:09] VITALS: BP 118/70
--- NOTE | 2019-01-25 23:48 | NUR ---
PT RESTING IN BED WITH EYES CLOSED. RR EVEN AND UNLABORED. FSBS-81. PT RUNNING 51 SINUS JING ON TELE PER SEP. BED LOW, CALL LIGHT WITHIN REACH, WILL CONTINUE TO MONITOR.
[2019-01-26 00:54] VITALS: BP 107/44
--- NOTE | 2019-01-26 03:16 | NUR ---
I have reviewed this patient and I concur with the Shift Assessment completed by the Licensed Practical Nurse today this shift.
[2019-01-26 05:37] VITALS: BP 106/57
[2019-01-26 06:56] LABS: BASOPHILS 0.8 % (0-2); EOSINOPHILS 3.9 % (0-7); HEMOGLOBIN 11.7 g/dL (13.5-17.5); IMMATURE GRANULOCYTES 0.2 % (0-5); LYMPHOCYTES 24.7 % (15-50); MCHC 34.4 g/dL (31.0-37.0); MCV 92.9 fL (80.0-100.0); MEAN PLATELET VOLUME 9.7 fL (7.4-10.4); MONOCYTES 10.2 % (2-11); NEUTROPHILS 60.2 % (40-80); PLATELET COUNT 270 10x3/uL (130-400); RBC 3.66 10x6/uL (4.20-6.10); RDW 13.4 % (11.5-14.5)
[2019-01-26 07:17] LABS: ALKALINE PHOSPHATASE 158 U/L (46-116); ALT (SGPT) 125 U/L (10-68); BILIRUBIN - TOTAL 3.33 mg/dL (0.2-1.3); CALC OSMOLALITY 276 mosm/kg (275-300); CALCIUM 8.5 mg/dL (8.5-10.1); CARBON DIOXIDE 22.9 mmol/L (21.0-32.0); CHLORIDE - SERUM 109 mmol/L (98-107); CREATININE - SERUM 0.8 mg/dL (0.6-1.3); GLUCOSE 82 mg/dL (74-106); POTASSIUM - SERUM 3.6 mmol/L (3.5-5.1); PROTEIN - SERUM 6.3 g/dL (6.4-8.2); SODIUM 140 mmol/L (136-145); UREA NITROGEN 9 mg/dL (7-18); eGFR NON AFRICAN AMERICAN > 90 mL/min (90-120)
[2019-01-26 07:26] LABS: INR 1.12 (0.85-1.17); PROTIME 13.9 SECONDS (11.6-15.0)
--- NOTE | 2019-01-26 07:30 | NUR ---
RESTING WITH EYES CLOSED. RESPONDED WHEN NAME CALLED. DENIES ANY NEEDS AT PRESENT TIME AND VOICES NO REQUESTS. ASSESSMENT COMPLETED WITH NO CHANGES NOTED. CALL LIGHT IN REACH AND BED IN LOW POSITION. REMAINS NPO FOR ERCP TODAY AND IS AWARE OF THIS AND VOICES UNDERSTANDING. WILL CONTINUE POC.
[2019-01-26 09:30] VITALS: BP 103/56
[2019-01-26 11:00] VITALS: BP 130/68
--- NOTE | 2019-01-26 14:17 | NUR ---
I have reviewed this patient and I concur with the Shift Assessment completed by the Licensed Practical Nurse today this shift.
--- NOTE | 2019-01-26 14:37 | NUR ---
Nutrition follow-up: Pt remains NPO for possible gallbladder surgery Labs reviewed Wt: 167# No BM charted RDN following.
[2019-01-26 17:48] VITALS: BP 98/59
--- NOTE | 2019-01-26 17:56 | NUR ---
RETURNED TO ROOM FROM SURGERY. V/S 98/59 44 16 96%RA 97.8. PT IS A/A/OX4. NO C/O ANY PAIN OR DISCOMFORT AT PRESENT TIME. REQUESTING COFFEE AND JELLO AND SAME GIVEN.
--- NOTE | 2019-01-27 00:35 | NUR ---
PT RESTING IN BED WITH EYES CLOSED. RR EVEN AND UNLABORED. PT NPO FOR ABDOMINAL CT IN AM. PT RUNNING 60 SINUS RYTHEM ON TELEMETRY PER FITTER AND TURNER SOLEMAN. BED LOW CALL LIGHT WITHIN REACH. WILL CONTINUE TO MONITOR.
--- NOTE | 2019-01-27 03:37 | NUR ---
I have reviewed this patient and I concur with the Shift Assessment completed by the Licensed Practical Nurse today this shift.
[2019-01-27 05:46] LABS: BASOPHILS 0.3 % (0-2); EOSINOPHILS 2.1 % (0-7); HEMATOCRIT 33.9 % (42.0-54.0); HEMOGLOBIN 11.6 g/dL (13.5-17.5); IMMATURE GRANULOCYTES 0.3 % (0-5); LYMPHOCYTES 25.3 % (15-50); MCHC 34.2 g/dL (31.0-37.0); MCV 93.6 fL (80.0-100.0); MEAN PLATELET VOLUME 9.8 fL (7.4-10.4); MONOCYTES 8.9 % (2-11); NEUTROPHILS 63.1 % (40-80); PLATELET COUNT 270 10x3/uL (130-400); RBC 3.62 10x6/uL (4.20-6.10); RDW 13.5 % (11.5-14.5); WBC 7.5 10x3/uL (4.8-10.8)
[2019-01-27 06:09] LABS: ALBUMIN 2.1 g/dL (3.4-5.0); ALKALINE PHOSPHATASE 153 U/L (46-116); ALT (SGPT) 114 U/L (10-68); CALCIUM 8.3 mg/dL (8.5-10.1); CARBON DIOXIDE 21.8 mmol/L (21.0-32.0); CREATININE - SERUM 0.9 mg/dL (0.6-1.3); GLUCOSE 92 mg/dL (74-106); MAGNESIUM - SERUM 2.1 mg/dL (1.8-2.4); PROTEIN - SERUM 6.4 g/dL (6.4-8.2); UREA NITROGEN 9 mg/dL (7-18); eGFR NON AFRICAN AMERICAN 90 mL/min (90-120)
[2019-01-27 06:15] LABS: CALC OSMOLALITY 277 mosm/kg (275-300); CHLORIDE - SERUM 109 mmol/L (98-107); POTASSIUM - SERUM 3.7 mmol/L (3.5-5.1); SODIUM 140 mmol/L (136-145)
[2019-01-27 08:44] VITALS: BP 110/62
[2019-01-27 09:44] VITALS: Ht 167.6 cm; Wt 68.0 kg
--- NOTE | 2019-01-27 09:45 | NUR ---
PT WAS ASLEEP WHEN I CHECKED ON HIM THIS MORNING.WHILE PASSING MORNING MEDICATIONS, OVERHEARD PT TALKING LOUDLY AND ANGRILY. TECH DOING THE ULTRASOUND CAME OUT TO TELL ME THE PATIENT WAS BEING VERBALLY DISRUPTIVE. PT HIT HIS CALL LIGHT 3 TIMES IN 10 MINUTES I WENT IN TO HELP HIM. PT STARTED CUSSING ME OUT WANTING ANSWERS TO QUESTIONS I DIDN'T CURRENTLY HAVE RIGHT IN FRONT OF ME. I TRIED TO TALK TO HIM BUT HE COUNTINUED TO CUSS ME OUT "WHY THE FUCK WON'T ANYONE GIVE ME FUCKING ORDER. YA'LL ARE FULL OF BULLSHIT IN THIS DAMNED PLACE" I TRIED TO CALM HIM DOWN BUT EVENTUALLY LEFT DUE TO THE AMOUNT OF VERBAL INSULTS. PT THEN SPOKE TO THE AND STATED "I TRIED TO TALK TO THAT GIRL BUT SHE WOULDN'T TELL ME ANYTHING". THAT IS UNTRUE, I JUST OCULDN'T GET A WORD IN EDGWISE AROUND HIS CUSSING.
--- NOTE | 2019-01-27 09:59 | NUR ---
PT APPOLOGIZED FOR "SNAPPING" ON ME.
[2019-01-27 12:08] VITALS: BP 108/66
--- NOTE | 2019-01-27 13:02 | NUR ---
IV RESITED TO LEFT FORARM. OTHER I/V CAME OUT, TIP INTACT.
--- NOTE | 2019-01-27 15:15 | NUR ---
I have reviewed this patient and I concur with the Shift Assessment completed by the Licensed Practical Nurse today this shift.
[2019-01-27 15:50] VITALS: BP 116/64
[2019-01-27 19:55] VITALS: BP 125/64
--- NOTE | 2019-01-27 21:00 | NUR ---
RECIEVED BEDSIDE REPORT. ROUNDS COMPLETED.VSS, AAOX3, NO S/S OF RR DISTRESS, RR EVEN AND UNLABORED. PT SITTING UP IN BED WITH EYES OPEN. MEDS GIVEN. DENIES ANY FURTHER NEEDS AT THIS TIME. WILL CPOC. CL IN REACH, BED IN LOW SR UP X2.
[2019-01-27 23:55] VITALS: BP 115/62
[2019-01-28 03:59] VITALS: BP 114/56
[2019-01-28 05:23] LABS: BASOPHILS 0.4 % (0-2); EOSINOPHILS 3.4 % (0-7); HEMATOCRIT 30.6 % (42.0-54.0); HEMOGLOBIN 10.3 g/dL (13.5-17.5); IMMATURE GRANULOCYTES 0.4 % (0-5); MCH 31.6 pg (26.0-34.0); MCHC 33.7 g/dL (31.0-37.0); MCV 93.9 fL (80.0-100.0); MEAN PLATELET VOLUME 9.6 fL (7.4-10.4); MONOCYTES 6.8 % (2-11); PLATELET COUNT 258 10x3/uL (130-400); RBC 3.26 10x6/uL (4.20-6.10); RDW 13.4 % (11.5-14.5); WBC 7.9 10x3/uL (4.8-10.8)
[2019-01-28 05:55] LABS: ALBUMIN 1.9 g/dL (3.4-5.0); ALKALINE PHOSPHATASE 127 U/L (46-116); ALT (SGPT) 92 U/L (10-68); BILIRUBIN - TOTAL 1.34 mg/dL (0.2-1.3); CALC OSMOLALITY 278 mosm/kg (275-300); CALCIUM 7.6 mg/dL (8.5-10.1); CARBON DIOXIDE 20.7 mmol/L (21.0-32.0); CHLORIDE - SERUM 110 mmol/L (98-107); CREATININE - SERUM 0.8 mg/dL (0.6-1.3); GLUCOSE 101 mg/dL (74-106); POTASSIUM - SERUM 3.2 mmol/L (3.5-5.1); PROTEIN - SERUM 5.8 g/dL (6.4-8.2); SODIUM 141 mmol/L (136-145); UREA NITROGEN 8 mg/dL (7-18); eGFR NON AFRICAN AMERICAN > 90 mL/min (90-120)
--- NOTE | 2019-01-28 06:43 | NUR ---
PT POTASSIUM 3.2. TREATED WITH 40MEQ OF POTASIUM CL. PT CURRENTLY RESTING IN BED. DENIES ANY NEED AT THIS TIME.
[2019-01-28 08:09] VITALS: BP 119/67
[2019-01-28 11:12] VITALS: BP 123/64
[2019-01-28 16:12] VITALS: BP 125/68
--- NOTE | 2019-01-28 19:31 | NUR ---
RECEIVED REPORT, WILL ASSUME CARE OF PT, PT IS A&O X4,EXPLAINED HE WILL BE NPO AFTER MIDNIGHT FOR PROCEDURE, PROVIDED PT WITH FRESH ICE WATER, BED IS LOW, SRX2, CALL LIGHT IN REACH, WILL CONTINUE PLAN OF CARE
--- NOTE | 2019-01-28 19:51 | NUR ---
CONSENTS SIGNED FOR LAPAROSCOPIC CHOLECYTECTOMY IN AM, PT IS REQUESTING I WAIT UNTIL 2129 TO BRING PM MEDS
[2019-01-28 20:38] VITALS: BP 133/66
[2019-01-28 23:44] VITALS: BP 130/74
[2019-01-29 04:57] VITALS: BP 120/66
[2019-01-29 05:20] LABS: BASOPHILS 0.4 % (0-2); EOSINOPHILS 2.2 % (0-7); HEMOGLOBIN 12.3 g/dL (13.5-17.5); IMMATURE GRANULOCYTES 0.6 % (0-5); LYMPHOCYTES 13.7 % (15-50); MCHC 34.2 g/dL (31.0-37.0); MCV 93.8 fL (80.0-100.0); MEAN PLATELET VOLUME 9.9 fL (7.4-10.4); MONOCYTES 7.4 % (2-11); NEUTROPHILS 75.7 % (40-80); PLATELET COUNT 292 10x3/uL (130-400); RBC 3.84 10x6/uL (4.20-6.10); RDW 13.3 % (11.5-14.5)
[2019-01-29 05:25] LABS: WBC 10.5 10x3/uL (4.8-10.8)
[2019-01-29 05:43] LABS: ALBUMIN 2.3 g/dL (3.4-5.0); ANION GAP 13.5 mmol/L (8-16); BILIRUBIN - TOTAL 2.39 mg/dL (0.2-1.3); CALCIUM 8.3 mg/dL (8.5-10.1); CARBON DIOXIDE 23.2 mmol/L (21.0-32.0); CREATININE - SERUM 1.1 mg/dL (0.6-1.3); MAGNESIUM - SERUM 2.2 mg/dL (1.8-2.4); POTASSIUM - SERUM 3.7 mmol/L (3.5-5.1); PROTEIN - SERUM 6.9 g/dL (6.4-8.2)
[2019-01-29 08:23] VITALS: BP 122/69
[2019-01-29 11:57] VITALS: BP 127/72
--- NOTE | 2019-01-29 14:22 | MORECARE ---
CASE MANAGEMENT DISCHARGE SUMMARY PATIENT: LIDIA GOFF UNIT: [id number] ADM DATE: 01/24/19 AGE: 63 : 51 SEX: M ROOM/BED: D.3966 AUTHOR: DILMA,DOC PHYSICIAN: REFERRING PHYSICIAN: GARY BECKER MD DATE OF SERVICE: 01/29/19 Discharge Plan Patient Name: LIDIA GOFF Facility: [facility]:[place] : 1955 Planned Disposition: Home Anticipated Discharge Date: 01/30/19 Discharge Date: Expected LOS: 6 Initial Reviewer: [email or web address] Initial Review Date: 01/29/2019 Generated: 01/29/19 3:21 pm Comments DCP- Discharge Planning Updated by [email or web address]: Robb Vargas on 01/29/19 1:[address] Patient Name: LIDIA GOFF Admission Status: ER Accout number: [id number] Admission Date: 01-24-2019 : 1955 Admission Diagnosis: Attending: GARY MANCILLA Current LOS: 5 Anticipated DC Date: 01-30-2019 Planned Disposition: Home Primary Insurance: MEDICARE A & B Discharge Planning Comments: CM MET WITH PT IN ROOM TO DISCUSS DISCHARGE PLANNING AND NEEDS. PT REPORTS LIVING AT HOME INDEPENDENTLY WITH HIS ADULT DAUGHTER AND HER CHILDREN. PT HAS NO MEDICAL EQUIPMENT AND NO OUTSIDE SERVICES ASSISTING IN THE HOME. CM DISCUSSED AVAILABILITY OF HOME HEALTH, REHAB SERVICES AND MEDICAL EQUIPMENT. PT DENIES DISCHARGE NEEDS STATING HE IS JUST HAVING HIS GALLBLADDER OUT. PT REPORTS FAMILY WILL PICK HIM UP FOR DISCHARGE HOME. PT REPORTS HAVING RECEIVED BAD CARE. CM PROVIDED PT WITH HOSPTIAL MISSION MANAGER AND CM CONTACT NUMBERS, ENCOURAGED PT TO SPEAK TO HOSPITAL MISSION MANAGER REGARDING CARE COMPLAINTS. PT PLANS TO DISCHARGE HOME WITH FAMILY, DENIES DISCHARGE NEEDS. CM TO FOLLOW AND ASSIST IF NEEDED. Chief Catalyst Operator: Robb Vargas DCPIA - Discharge Planning Initial Assessment Updated by [email or web address]: Robb Vargas on 01/29/19 2:17 pm * Is the patient Alert and Oriented? Yes * How many steps to enter\exit or inside your home? NONE * PCP DR RODRIGUEZ * Pharmacy [facility] * Preadmission Environment Home with Family * ADLs Independent * Equipment None * Other Equipment NO MEDICAL EQUIPMENT PROVIDER PREFERENCE * List name and contact numbers for known caregivers / representatives who currently or will assist patient after discharge: ELEONORA COLINDRES, * Verbal permission to speak to the caregivers and representatives has been obtained from the patient. N/A * Community resources currently utilized None * Please name any agencies selected above. NONE * Additional services required to return to the preadmission environment? No * Can the patient safely return to the preadmission environment? Yes * Has this patient been hospitalized within the prior 30 days at any hospital? No Patient Name: LIDIA GOFF Page [id number] at 1422 All edits/amendments must be made on the electronic document DICTATION DATE: 01/29/191420 OVERNIGHT HOUSEPERSON: ONEL 01/29/191420 RPT#: [id number] DC DATE: STATUS: ADM IN [facility] [address] [place] [address] END OF REPORT
--- NOTE | 2019-01-29 19:10 | NUR ---
PT RETURNS FROM POST OP RECOVERY AT THIS TIME TO BED WITH NS LCTA ABD DRSGS INTACT AND SLIGHT BLEED THROUGH MARKED. TWO DRAINS ARE NOTED AT THIS TIME A MELODIE DRAIN WITH BLOODY DRAINAGE AND A APPEARENT BILLIDRAIN WITH BROWN TO GREEN DRAINAGE. VS SET TO Q15 FIRST SET IS 132/76 98 15 94% ON RA...
--- NOTE | 2019-01-29 19:30 | NUR ---
VS 129/70 93 16 97% pt still seems a bit sedated at this time but is complaining of pain when aroused. lcta skin warm and dry no changes to abd or bandages
--- NOTE | 2019-01-29 20:15 | NUR ---
2014 VS 123/72 92 18 97% RA CONTINUES TO BE SOMEWHAT SEDATED BUT AROUSING MORE.
--- NOTE | 2019-01-29 20:40 | NUR ---
PT AROUSED AND CO PAIN DIRECTOR PRODUCT BEGAIN ORDERED AT THIS TIME VS 120/56 88 97% RA
[2019-01-29 20:46] VITALS: BP 129/70
[2019-01-30] VITALS (7 sets, daily range): BP systolic 93–125; BP diastolic 40–75
--- NOTE | 2019-01-30 00:54 | NUR ---
EMPTIED AND RECHARGED MELODIE DRAIN 70 OUT
--- NOTE | 2019-01-30 05:08 | NUR ---
I have reviewed this patient and I concur with the Shift Assessment completed by the Licensed Practical Nurse today this shift.
[2019-01-30 06:23] LABS: BASOPHILS 0.2 % (0-2); EOSINOPHILS 0 % (0-7); HEMATOCRIT 29.1 % (42.0-54.0); IMMATURE GRANULOCYTES 0.6 % (0-5); LYMPHOCYTES 10.7 % (15-50); MCH 31.2 pg (26.0-34.0); MCV 94.5 fL (80.0-100.0); MEAN PLATELET VOLUME 9.6 fL (7.4-10.4); MONOCYTES 9.8 % (2-11); NEUTROPHILS 78.7 % (40-80); RBC 3.08 10x6/uL (4.20-6.10); RDW 13.4 % (11.5-14.5); WBC 10.9 10x3/uL (4.8-10.8)
[2019-01-30 06:54] LABS: ALKALINE PHOSPHATASE 152 U/L (46-116); BILIRUBIN - TOTAL 2.01 mg/dL (0.2-1.3); CALC OSMOLALITY 272 mosm/kg (275-300); CARBON DIOXIDE 22.4 mmol/L (21.0-32.0); CHLORIDE - SERUM 105 mmol/L (98-107); GLUCOSE 137 mg/dL (74-106); MAGNESIUM - SERUM 1.9 mg/dL (1.8-2.4); SODIUM 136 mmol/L (136-145); UREA NITROGEN 10 mg/dL (7-18); eGFR NON AFRICAN AMERICAN 80 mL/min (90-120)
[2019-01-30 06:55] LABS: ALT (SGPT) 328 U/L (10-68); POTASSIUM - SERUM 4.4 mmol/L (3.5-5.1)
[2019-01-30 06:56] LABS: HEMOGLOBIN 9.6 g/dL (13.5-17.5); PLATELET COUNT 368 10x3/uL (130-400)
--- NOTE | 2019-01-30 08:00 | NUR ---
AM ROUNDS COMPLETED. INTRODUCED MYSELF TO PT PRIMARY RN FOR TODAYS SHIFT. PT IS A&O SITTING UP IN BED. UPON ASSESSING PT NOTED GREEN BODY FLUID ALL OVER HIS SHEETS. PT HAS A R.SIDE BILIARY DRAIN THAT IS LEAKING. CLEANSED AREA AND APPLIED SKIN BARRIER THEN SECURED OSTOMY BAG FOR DRAINAGE. EMPTIED 90ML OF DARK GREEN FLUID OUT OF BAG AT THIS TIME. UNSURE HOW MUCH HAD LEAKED OUT THOUGH. TUBE SUTURED IN AND SITE HAS NO S/S OF INFECTION OR REDDNESS NOTED. PT ALSO HAS MELODIE DRAIN TO THIS RIGHT SIDE SLIGHTLY LOWER THAN BILIARY DRAIN, SUTURED IN WITH DRSG CDI, NO S/S OF REDDNESS OR DRAINAGE NOTED AT SITE. MILKED AND EMPTIED MELODIE DRAIN OF 25ML LIGHT RED BLOOD. CHANGED PTS ABDOMEN DRSG IT HAD GREEN FLUIDS ALL OVER IT. CLEANSED WITH WOUND CLEANSER AND PATTED DRY. SITE IS ACROSS ABDOMEN WITH LISA AND APPEARS CLEAN AND DRY, NO S/S OF DRAINAGE BLEEDING OR REDDNESS NOTED. NEW DRY DRSG APPLIED. PT HAS NGT TO R.NARE SUPPOSED TO BE TO LOW INTERMITT. SUCTION HOWEVER ITS BEEN CLAMPED OFF SINCE PLACEMENT. GATHERED SUPPLIED AND INSTRUCTED PT ON REASONING AND PURPOSE AND CONNECTED IT TO LOW INTERMITT. SUCTION @20CM. SCANT AMOUNT OF CLEAR FLUID BEGAN TO DRAIN. PT STATES HE IS PASSING GAS. BOWEL SOUNDS ACTIVE X4. ABDOMEN SLIGHTLY DISTENDED FOR PT AND VERY TENDER. PT C/O PAIN AND HAS A FURNITURE DELIVERY DRIVER PUMP HOWEVER PIV IS DANGLING OUT OF HIS ARM. D/C IMMEDIATELY WITH CATHETER TIP FULLY INTACT. NEW 22 GUAGE PIV INSERTED TO L.FA X2 STICKS, SECURED WITH TEGADERM AND NS INFUSING @125ML/HR ORDERED ALONG WITH FURNITURE DELIVERY DRIVER DILAUDID. PT VOICED THANKS AND DENIES ANY FURTHER NEEDS AT THIS TIME. WILL CPOC.
--- NOTE | 2019-01-30 08:15 | OP ---
PATIENT NAME: LIDIA GOFF MEDICAL RECORD: [id number] :[birth year] LOCATION:D. D.2137 ADMISSION DATE:01/24/19 SURGEON: JENNY BRYAN MD DATE OF OPERATION: 01/29/2019 SURGEON: Jenny Bryan MD PREOPERATIVE DIAGNOSES: Choledocholithiasis, jaundice, and ascending cholangitis. POSTOPERATIVE DIAGNOSES: Choledocholithiasis, jaundice, and ascending cholangitis. PROCEDURES PERFORMED: Laparoscopic cholecystectomy with conversion to open cholecystectomy, common bile duct exploration, and intraoperative cholangiogram. ANESTHESIA: General. COMPLICATIONS: None. ESTIMATED BLOOD LOSS: 500 cc. Case was contaminated. OPERATIVE COURSE: After consent was obtained, the patient was taken to the operating room and placed in the supine position on the operating table. General anesthesia was given. A timeout was taken to confirm the correct patient and procedure. The patient's abdomen was prepped and draped in typical sterile fashion. Local anesthetic was injected just above the umbilicus. A stab incision was made with an 11-blade scalpel. Using a 5-mm bladeless optical trocar, the abdomen was entered under direct laparoscopic vision. Adequate pneumoperitoneum was achieved. The abdominal cavity was inspected. There was no evidence of bowel injury. No evidence of bleeding. At this time, all additional trocars were placed, two 5-mm trocars in the right upper quadrant and 11-mm trocar in the subxiphoid position. The liver was retracted. There was no identifiable gallbladder noted. There was a tremendous amount of induration and indurated tissue in the area of the gallbladder fossa. The duodenum was densely adherent to the anterior surface of the area of the common bile duct and gallbladder fossa. Meticulous dissection was performed to free the duodenum away from the anterior surface of the common bile duct and gallbladder fossa. Again, a significant amount of time was spent with very gentle dissection of the tissue in the gallbladder fossa with what I believe was some embryologic remnant of nonformed gallbladder versus chronic cholecystitis with complete contracture of the gallbladder. While dissecting on the posterolateral side of the gallbladder, a vessel began bleeding that was uncontrolled by laparoscopic means. At this time, pressure was applied and we converted to an open cholecystectomy for further evaluation of the common bile duct and cystic duct as well as control of the hemorrhage. A skin incision was made in a subcostal fashion. She had a #10-blade scalpel. Dissection continued through subcutaneous tissue, fascia, and muscle layers using electrocautery. A Bookwalter was placed. The left upper quadrant was packed. The vessel was tied off with a 4-0 Prolene suture. At this time, again a cholangiogram was performed, which showed no filling of the cystic duct or gallbladder. There was OPERATIVE REPORT [id number] LIDIA GOFF a hard indurated calcified piece of tissue on the anterior surface of the common bile duct, the portal of triad was then meticulously dissected, the cystic artery medially was dissected. A vessel loop was placed. The common bile duct, which was markedly dilated, was also dissected away from the portal vein posteriorly and a vessel loop was placed. The calcified and indurated portion of the remaining tissue, which I assume was remnant gallbladder was meticulously dissected off of the common bile duct. This tissue was finally excised and sent for permanent pathology. I felt it was best at this opportunity to place a T-tube as there was an opening in the common bile duct in the area in which the gallbladder was dissected off the common bile duct. A T-tube was cut to size and placed through the choledochotomy. It was secured in place with a pursestring suture using 3-0 Vicryl suture. Evicel was placed around the T-tube. The T-tube was delivered through the right lateral abdominal wall. A MELODIE drain was also placed posterior to the portal of triad. There was no bleeding noted. There was no bile leakage noted. The intraoperative cholangiogram did show marked dilation of the proximal common bile duct as well as the intrahepatic ducts. There was filling of the duodenum, but there was a narrowing and/or stricture noted in the distal common bile duct. At this time, the abdomen was copiously irrigated and suctioned again. The duodenum was meticulously inspected. There were some minor serosal defects that were closed with 3-0 Vicryl suture. At this time, the Bookwalter retracting device was removed. The incision was closed in multiple layers. The peritoneum and posterior fascia were closed with looped PDS. The anterior fascia was closed with looped PDS. Skin was closed with britt. The T-tube was secured with 2-0 nylon suture. A MELODIE drain was secured with 2-0 nylon suture. The patient was transferred to the recovery room in satisfactory condition. TRANSINT:[id number] Voice Confirmation ID: [id number] DOCUMENT ID: [id number] JENNY BRYAN MD at 0815 CC: [id number] DICTATION DATE: 01/29/191941 DRAFTER CIVIL (CAD): 01/29/19 2307 ADM IN [facility] [address] [place] [address]
--- NOTE | 2019-01-30 09:45 | NUR ---
AT BEDSIDE ROUNDING DISCUSSING SURGERY FINDINGS AND PLAN OF CARE. PT VERBALIZED UNDERSTANDING AND IS MOTIVATED TO JUST GET BETTER. ASSISTED PT UP TO BR HE STATES HE CANT VOID IN URINAL. PT VOIDED 300ML DARK URINE. ASSISTED PT BACK INTO BED AND HE IS RESTING QUIETLY. CHANGED OUT COLOSTOMY DRAINAGE BAG AND PLACED REGULAR BILIARY DRAINAGE BAG. PT WILL REMAIN NPO WITH GUT REST BUT OKAY TO HAVE POPSICLES AND ICE CHIPS. PT EXCITED ABOUT THIS WILL PROVIDE HIM WITH SOME AND CPOC. NO CURRENT NEEDS AT THIS TIME.
--- NOTE | 2019-01-30 13:36 | NUR ---
PROVIDED PT WITH GRAPE POPSICLE AND HE TOLERATED WITHOUT ANY C/O DISCOMFORT OR NAUSEA. PT STATES STATE SUPERINTENDENT OF SCHOOLS PUMP IS HELPING WITH HIS PAIN AND KEEPING IT CONTROLLED. PT DENIES ANY CURRENT NEEDS AT THIS TIME AND WOULD LIKE TO REST. BILIARY DRAIN CLEAN AND DRAINING WITHOUT ANY ISSUES NOTED. MILKED MELODIE DRAIN TUBING AND ITS DRAINING WITHOUT ANY ISSUES. ABDOMEN DRSGS STILL ALL CDI. WILL CPOC.
--- NOTE | 2019-01-30 14:04 | NUR ---
Nutrition follow-up: pt s/p colostomy, lap ifeanyi with biliary drain placed NGT->LIWS Pt allowed popsicles, ice chips only due to gut resst NS @ 125 ml/hr +BS x 4 per nursing Recommend TPN vs PPN due to pt has been NPO since admit (7 days). RDN following.
--- NOTE | 2019-01-30 18:48 | NUR ---
PTS WIRELINE FIELD OPERATOR SYRINGE EMPTY. CHANGED OUT AND REPLACED WITH NEW ONE. PT SITTING UP IN BED AND VOICED THANKS AND STATES IT IS RELIEVING HIS PAIN. PT HAS NOT NEEDED ANY BOLUS DOSES. EMPTIED ALL PTS DRAINS AND CHARTED CORRECTLY IN OUTPUT AREAS. PT DENIES ANY NEEDS AT THIS TIME. REFUSING TO BE CONNECTED TO THE SUCTION AND STATES HE NEEDS AT BREAK. WILL PASS ON IN REPORT AND CPOC.
--- NOTE | 2019-01-30 19:05 | NUR ---
FAMILY HERE AND THEM WELL PT ASKING QUESTIONS AND IM TRYING TO ANSWER AND EDUCATE PATIENT ASSISTED UP TO RESTROOM AND BACK TO BED SKIN WARM AND DRY DRSG IS INTACT WITH BOTH MELODIE AND JUSTA DRAINS IN PLACE BOWEL SOUNDS VERY HYPO PT CONTINUES WITH BIT SHARPENER PUMP FOR PAIN CONTROL
[2019-01-31] VITALS (7 sets, daily range): BP systolic 93–173; BP diastolic 52–92
--- NOTE | 2019-01-31 04:42 | NUR ---
I have reviewed this patient and I concur with the Shift Assessment completed by the Licensed Practical Nurse today this shift.
[2019-01-31 06:42] LABS: BASOPHILS 0.3 % (0-2); EOSINOPHILS 1.9 % (0-7); HEMATOCRIT 24.1 % (42.0-54.0); IMMATURE GRANULOCYTES 0.8 % (0-5); LYMPHOCYTES 19.4 % (15-50); MCH 31.5 pg (26.0-34.0); MCHC 33.2 g/dL (31.0-37.0); MCV 94.9 fL (80.0-100.0); MEAN PLATELET VOLUME 9.5 fL (7.4-10.4); MONOCYTES 10.5 % (2-11); NEUTROPHILS 67.1 % (40-80); PLATELET COUNT 321 10x3/uL (130-400); RBC 2.54 10x6/uL (4.20-6.10); RDW 13.9 % (11.5-14.5)
[2019-01-31 06:48] LABS: CALC OSMOLALITY 274 mosm/kg (275-300); CALCIUM 7.7 mg/dL (8.5-10.1); CARBON DIOXIDE 24.8 mmol/L (21.0-32.0); CHLORIDE - SERUM 106 mmol/L (98-107); CREATININE - SERUM 0.9 mg/dL (0.6-1.3); GLUCOSE 98 mg/dL (74-106); POTASSIUM - SERUM 3.8 mmol/L (3.5-5.1); SODIUM 138 mmol/L (136-145); UREA NITROGEN 9 mg/dL (7-18); eGFR NON AFRICAN AMERICAN 90 mL/min (90-120)
[2019-01-31 07:08] LABS: WBC 7.2 10x3/uL (4.8-10.8)
--- NOTE | 2019-01-31 07:58 | NUR ---
PATIENT NOTIFIED OF NPO. VERBALIZED UNDERSTANDING. ZOFRAN GIVEN IVP SLOWLY FOR NAUSEA. CALL LIGHT WITHIN REACH.
--- NOTE | 2019-01-31 08:02 | NUR ---
PATIENT IN BED WITH EYES CLOSED RESTING QUIETLY. BILI DRAIN AND MELODIE DRAIN EMPTIED AT THIS TIME. NGT INTACT. NIGHT NURSE STATED REFUSES SUCTION. CALL LIGHT WITHIN REACH.
[2019-01-31 10:27] LABS: ALBUMIN 1.9 g/dL (3.4-5.0); BILIRUBIN - DIRECT 1.04 mg/dL (0.00-0.30); BILIRUBIN - INDIRECT 0.4 mg/dL (0.00-1.00); BILIRUBIN - TOTAL 1.44 mg/dL (0.2-1.3); PROTEIN - SERUM 5.7 g/dL (6.4-8.2)
--- NOTE | 2019-01-31 11:30 | NUR ---
PATIENT NGT OUT AT THIS TIME. PATIENT PULLED OUT WHILE UP TO BR. ORDER TO DC SO LEFT NGT OUT. EXPLAINED TO PATIENT NPO. PATIENT STATED NO ONE TOLD HIM. SPOKE WITH DR. KIRK STATED NOT GOING TO SURGERY TODAY BUT PATIENT IS TO REMAIN NPO. EXPLAINED TO PATIENT. VERBALIZED UNDERSTANDING. NO QUESTIONS AT THIS TIME. MELODIE AND BILI DRAIN EMPTIED. CALL LIGHT WITHIN REACH.
--- NOTE | 2019-01-31 15:27 | MORECARE ---
CASE MANAGEMENT DISCHARGE SUMMARY PATIENT: LIDIA GOFF UNIT: [id number] ADM DATE: 01/24/19 AGE: 63 : 51 SEX: M ROOM/BED: D.3710 AUTHOR: DILMA,DOC PHYSICIAN: REFERRING PHYSICIAN: GARY BECKER MD DATE OF SERVICE: 01/31/19 Discharge Plan Patient Name: LIDIA GOFF Facility: [facility]:[place] : 1955 Planned Disposition: Home with Home Health Anticipated Discharge Date: 02/01/19 Discharge Date: Expected LOS: 8 Initial Reviewer: [id number] Initial Review Date: 01/29/2019 Generated: 01/31/19 4:27 pm DCP- Discharge Planning Updated by [id number]: Robb Vargas on 01/29/19 1:[address] Patient Name: LIDIA GOFF Admission Status: ER Accout number: [id number] Admission Date: 01-24-2019 : 1955 Admission Diagnosis: Attending: GARY MANCILLA Current LOS: 5 Anticipated DC Date: 01-30-2019 Planned Disposition: Home Primary Insurance: MEDICARE A & B Discharge Planning Comments: CM MET WITH PT IN ROOM TO DISCUSS DISCHARGE PLANNING AND NEEDS. PT REPORTS LIVING AT HOME INDEPENDENTLY WITH HIS ADULT DAUGHTER AND HER CHILDREN. PT HAS NO MEDICAL EQUIPMENT AND NO OUTSIDE SERVICES ASSISTING IN THE HOME. CM DISCUSSED AVAILABILITY OF HOME HEALTH, REHAB SERVICES AND MEDICAL EQUIPMENT. PT DENIES DISCHARGE NEEDS STATING HE IS JUST HAVING HIS GALLBLADDER OUT. PT REPORTS FAMILY WILL PICK HIM UP FOR DISCHARGE HOME. PT REPORTS HAVING RECEIVED BAD CARE. CM PROVIDED PT WITH [facility]OSPTIAL [facility] AND CM CONTACT NUMBERS, ENCOURAGED PT TO SPEAK TO HOSPITAL [facility] REGARDING CARE COMPLAINTS. PT PLANS TO DISCHARGE HOME WITH FAMILY, DENIES DISCHARGE NEEDS. CM TO FOLLOW AND ASSIST IF NEEDED. Pinked Edge Sewing Machine Operator: Robb Vargas DCPIA - Discharge Planning Initial Assessment Updated by [id number]: Robb Vargas on 01/29/19 2:17 pm * Is the patient Alert and Oriented? Yes * How many steps to enter\exit or inside your home? NONE * PCP DR RODRIGUEZ * Pharmacy [facility] * Preadmission Environment Home with Family * ADLs Independent * Equipment None * Other Equipment NO MEDICAL EQUIPMENT PROVIDER PREFERENCE * List name and contact numbers for known caregivers / representatives who currently or will assist patient after discharge: ELEONORA COLINDRES, * Verbal permission to speak to the caregivers and representatives has been obtained from the patient. N/A * Community resources currently utilized None * Please name any agencies selected above. NONE * Additional services required to return to the preadmission environment? No * Can the patient safely return to the preadmission environment? Yes * Has this patient been hospitalized within the prior 30 days at any hospital? No External Providers External Provider: [facility] Next Contact Date: 02/01/2019 Service Request Date: Service Type: Resolution: Reviewer: Comments: Coverage Notice Reviewer: [id number] Vargas Notice Issued Date-Time: 01/31/2019 14:30 Notice Type: Patient Choice Letter Notice Delivered To: Patient Relationship to Patient: Drafter Civil (Cad) Name: Delivery Method: HAND - Hand Delivered Pilar Days: Prior Verbal Notification: Recipient Understood Notice: Yes Recipient Signature: Yes Med Rec Note Co-signed by Attending: Coverage Notice Comment: NO HOME HELATH PREFERENCE Reviewer: [id number] Vargas Notice Issued Date-Time: 01/31/2019 14:30 Notice Type: IM Discharge Notice Notice Delivered To: Patient Relationship to Patient: Drafter Civil (Cad) Name: Delivery Method: HAND - Hand Delivered Pilar Days: Prior Verbal Notification: Recipient Understood Notice: Yes Recipient Signature: Yes Med Rec Note Co-signed by Attending: Coverage Notice Comment: Last DP export: 01/29/19 1:21 pm Patient Name: LIDIA GOFF Page [phone] at 1527 All edits/amendments must be made on the electronic document DICTATION DATE: 01/31/19 1527 SIDE SPLITTER: ONEL 01/31/19 1527 RPT#: [id number] DC DATE: STATUS: ADM IN [facility] [address] [place] [address] END OF REPORT
--- NOTE | 2019-01-31 15:30 | NUR ---
PATIENT BLOOD STARTED AT THIS TIME. SPOKE WITH KARIN MONAE ABOUT TEMP BEING 100.4 BEFORE BLOOD. STATED TO GO AHEAD AND START THE BLOOD AND TO CALL BACK IF GETS HIGHER. WILL CONTINUE TO MONITOR. CALL LIGHT WITHIN REACH.
--- NOTE | 2019-01-31 16:03 | MORECARE ---
CASE MANAGEMENT DISCHARGE SUMMARY PATIENT: LIDIA GOFF UNIT: [id number] ADM DATE: 01/24/19 AGE: 63 : 51 SEX: M ROOM/BED: D.9856 AUTHOR: DILMADOC PHYSICIAN: REFERRING PHYSICIAN: GARY BECKER MD DATE OF SERVICE: 01/31/19 Discharge Plan Patient Name: LIDIA GOFF Facility: [facility]:[place] : 1955 Planned Disposition: Home with Home Health Anticipated Discharge Date: 02/01/19 Discharge Date: Expected LOS: 8 Initial Reviewer: [id number] Initial Review Date: 01/29/2019 Generated: 01/31/19 5:03 pm Comments DCP- Discharge Planning Updated by [id number]: Robb Vargas on 01/31/19 2:[address] Patient Name: LIDIA GOFF Encounter No: [id number] : 1955 Primary Insurance: MEDICARE A & B Anticipated DC Date: 02-01-2019 Planned Disposition: Home with Home Health External Planned Provider: [facility] DCP follow-up note: CM RECEIVED ORDER FOR HOME HEALTH. CM MET WITH PT IN ROOM TO DISCUSS DISCHARGE NEEDS AND PLANNING. CM DISCUSSED AVAILABILITY OF HOME HEALTH, REHAB SERVICES AND MEDICAL EQUIPMENT. PT WILL ACCEPT HOME HEALTH, PROVIDER LISTING GIVEN, PT SIGNED CONSENT WITH NO PROVIDER PREFERENCE. DAUGHTER TO TRANSPORT HOME AT DISCHARGE. IMPORTANT MESSAGE FROM MEDICARE PROVIDED AND EXPLAINED. CM CALLED [facility], , SPOKE TO JASON, REFERRAL PROVIDED, PT PLACED ON SCHEDULE FOR TUESDAY. CM FAXED REFERRAL INFORMATION TO [facility] AT [phone]. FOR DISCHARGE, FAX DISCHARGE INFORMATION TO [employer] AT [phone]. CALL AND NOTIFY [facility] OF DISCHARGE AT [phone]. ELLA Francois DCP- Discharge Planning Updated by [id number]: Robb Vargas on 01/29/19 1:[address] Patient Name: LIDIA GOFF Admission Status: ER Accout number: [id number] Admission Date: 01-24-2019 : 1955 Admission Diagnosis: Attending: GARY MANCILLA Current LOS: 5 Anticipated DC Date: 01-30-2019 Planned Disposition: Home Primary Insurance: MEDICARE A & B Discharge Planning Comments: CM MET WITH PT IN ROOM TO DISCUSS DISCHARGE PLANNING AND NEEDS. PT REPORTS LIVING AT HOME INDEPENDENTLY WITH HIS ADULT DAUGHTER AND HER CHILDREN. PT HAS NO MEDICAL EQUIPMENT AND NO OUTSIDE SERVICES ASSISTING IN THE HOME. CM DISCUSSED AVAILABILITY OF HOME HEALTH, REHAB SERVICES AND MEDICAL EQUIPMENT. PT DENIES DISCHARGE NEEDS STATING HE IS JUST HAVING HIS GALLBLADDER OUT. PT REPORTS FAMILY WILL PICK HIM UP FOR DISCHARGE HOME. PT REPORTS HAVING RECEIVED BAD CARE. CM PROVIDED PT WITH HOSPTIAL [employer] AND CM CONTACT NUMBERS, ENCOURAGED PT TO SPEAK TO HOSPITAL [employer] [facility] REGARDING CARE COMPLAINTS. PT PLANS TO DISCHARGE HOME WITH FAMILY, DENIES DISCHARGE NEEDS. CM TO FOLLOW AND ASSIST IF NEEDED. Neurosurgical Physician Assistant: Robb Vargas DCPIA - Discharge Planning Initial Assessment Updated by [id number]: Robb Vargas on 01/29/19 2:17 pm * Is the patient Alert and Oriented? Yes * How many steps to enter\exit or inside your home? NONE * PCP DR RODRIGUEZ * Pharmacy [facility] * Preadmission Environment Home with Family * ADLs Independent * Equipment None * Other Equipment NO MEDICAL EQUIPMENT PROVIDER PREFERENCE * List name and contact numbers for known caregivers / representatives who currently or will assist patient after discharge: ELEONORA COLINDRES, * Verbal permission to speak to the caregivers and representatives has been obtained from the patient. N/A * Community resources currently utilized None * Please name any agencies selected above. NONE * Additional services required to return to the preadmission environment? No * Can the patient safely return to the preadmission environment? Yes * Has this patient been hospitalized within the prior 30 days at any hospital? No Coverage Notice Reviewer: [id number] Marcelino Vargas Notice Issued Date-Time: 01/31/2019 14:30 Notice Type: Patient Choice Letter Notice Delivered To: Patient Relationship to Patient: Customer Quality Engineer Name: Delivery Method: HAND - Hand Delivered Pilar Days: Prior Verbal Notification: Recipient Understood Notice: Yes Recipient Signature: Yes Med Rec Note Co-signed by Attending: Coverage Notice Comment: NO HOME HELATH PREFERENCE Reviewer: [id number] Marcelino Vargas Notice Issued Date-Time: 01/31/2019 14:30 Notice Type: IM Discharge Notice Notice Delivered To: Patient Relationship to Patient: Customer Quality Engineer Name: Delivery Method: HAND - Hand Delivered Pilar Days: Prior Verbal Notification: Recipient Understood Notice: Yes Recipient Signature: Yes Med Rec Note Co-signed by Attending: Coverage Notice Comment: Last DP export: 01/31/19 2:27 pm Patient Name: LIDIA GOFF Page [id number] at 1603 All edits/amendments must be made on the electronic document DICTATION DATE: 01/31/191602 LUGGER: ONEL 01/31/19 160 RPT#: [id number] DC DATE: STATUS: ADM IN [facility] [address] [place] [address] END OF REPORT
--- NOTE | 2019-01-31 16:16 | MORECARE ---
CASE MANAGEMENT DISCHARGE SUMMARY PATIENT: LIDIA GOFF UNIT: [id number] ADM DATE: 01/24/19 AGE: 63 : 51 SEX: M ROOM/BED: D.7236 AUTHOR: DILMADOC PHYSICIAN: REFERRING PHYSICIAN: GARY BECKER MD DATE OF SERVICE: 01/31/19 Discharge Plan Patient Name: LIDIA GOFF Facility: [facility]:[place] : 1955 Planned Disposition: Home with Home Health Anticipated Discharge Date: 02/01/19 Discharge Date: Expected LOS: 8 Initial Reviewer: [id number] Initial Review Date: 01/29/2019 Generated: 01/31/19 5:16 pm Comments DCP- Discharge Planning Updated by [id number]: Robb Vargas on 01/31/19 2:[address] Patient Name: LIDIA GOFF Encounter No: [id number] : 1955 Primary Insurance: MEDICARE A & B Anticipated DC Date: 02-01-2019 Planned Disposition: Home with Home Health External Planned Provider: [facility] DCP follow-up note: CM RECEIVED ORDER FOR HOME HEALTH. CM MET WITH PT IN ROOM TO DISCUSS DISCHARGE NEEDS AND PLANNING. CM DISCUSSED AVAILABILITY OF HOME HEALTH, REHAB SERVICES AND MEDICAL EQUIPMENT. PT WILL ACCEPT HOME HEALTH, PROVIDER LISTING GIVEN, PT SIGNED CONSENT WITH NO PROVIDER PREFERENCE. DAUGHTER TO TRANSPORT HOME AT DISCHARGE. IMPORTANT MESSAGE FROM MEDICARE PROVIDED AND EXPLAINED. CM CALLED [facility], , SPOKE TO JASON, REFERRAL PROVIDED, PT PLACED ON SCHEDULE FOR TUESDAY. CM FAXED REFERRAL INFORMATION TO [employer] AT [phone]. FOR DISCHARGE, FAX DISCHARGE INFORMATION TO [employer] AT [phone]. CALL AND NOTIFY [facility] OF DISCHARGE AT [phone]. ELLA Francois DCP- Discharge Planning Updated by [id number]: Robb Vargas on 01/29/19 1:[address] Patient Name: LIDIA GOFF Admission Status: ER Accout number: [id number] Admission Date: 01-24-2019 : 1955 Admission Diagnosis: Attending: GARY MANCILLA Current LOS: 5 Anticipated DC Date: 01-30-2019 Planned Disposition: Home Primary Insurance: MEDICARE A & B Discharge Planning Comments: CM MET WITH PT IN ROOM TO DISCUSS DISCHARGE PLANNING AND NEEDS. PT REPORTS LIVING AT HOME INDEPENDENTLY WITH HIS ADULT DAUGHTER AND HER CHILDREN. PT HAS NO MEDICAL EQUIPMENT AND NO OUTSIDE SERVICES ASSISTING IN THE HOME. CM DISCUSSED AVAILABILITY OF HOME HEALTH, REHAB SERVICES AND MEDICAL EQUIPMENT. PT DENIES DISCHARGE NEEDS STATING HE IS JUST HAVING HIS GALLBLADDER OUT. PT REPORTS FAMILY WILL PICK HIM UP FOR DISCHARGE HOME. PT REPORTS HAVING RECEIVED BAD CARE. CM PROVIDED PT WITH [facility] AND CM CONTACT NUMBERS, ENCOURAGED PT TO SPEAK TO [facility]OSPITAL [facility] [employer] REGARDING CARE COMPLAINTS. PT PLANS TO DISCHARGE HOME WITH FAMILY, DENIES DISCHARGE NEEDS. CM TO FOLLOW AND ASSIST IF NEEDED. Laborer [employer]: Robb Vargas DCPIA - Discharge Planning Initial Assessment Updated by [id number]: Robb Vargas on 01/29/19 2:17 pm * Is the patient Alert and Oriented? Yes * How many steps to enter\exit or inside your home? NONE * PCP DR RODRIGUEZ * Pharmacy [facility] * Preadmission Environment Home with Family * ADLs Independent * Equipment None * Other Equipment NO MEDICAL EQUIPMENT PROVIDER PREFERENCE * List name and contact numbers for known caregivers / representatives who currently or will assist patient after discharge: ELEONORA COLINDRES, * Verbal permission to speak to the caregivers and representatives has been obtained from the patient. N/A * Community resources currently utilized None * Please name any agencies selected above. NONE * Additional services required to return to the preadmission environment? No * Can the patient safely return to the preadmission environment? Yes * Has this patient been hospitalized within the prior 30 days at any hospital? No Coverage Notice Reviewer: [id number] Marcelino Vargas Notice Issued Date-Time: 01/31/2019 14:30 Notice Type: Patient Choice Letter Notice Delivered To: Patient Relationship to Patient: It Applications Analyst Name: Delivery Method: HAND - Hand Delivered Pilar Days: Prior Verbal Notification: Recipient Understood Notice: Yes Recipient Signature: Yes Med Rec Note Co-signed by Attending: Coverage Notice Comment: NO HOME HELATH PREFERENCE Reviewer: [id number] Marcelino Vargas Notice Issued Date-Time: 01/31/2019 14:30 Notice Type: IM Discharge Notice Notice Delivered To: Patient Relationship to Patient: It Applications Analyst Name: Delivery Method: HAND - Hand Delivered Pilar Days: Prior Verbal Notification: Recipient Understood Notice: Yes Recipient Signature: Yes Med Rec Note Co-signed by Attending: Coverage Notice Comment: Last DP export: 01/31/19 2:27 pm Patient Name: LIDIA GOFF Page 51883 at 1616 All edits/amendments must be made on the electronic document DICTATION DATE: 01/31/191615 CUSTOMER COUNTER REPRESENTATIVE: ONEL 01/31/19 161 RPT#: [id number] DC DATE: STATUS: ADM IN [facility] [address] [place] [address] END OF REPORT
--- NOTE | 2019-01-31 18:19 | NUR ---
BLOOD STILL INFUSING. TEMP 99. IV INTACT. MELODIE DRAIN AND BILI DRAIN EMPTIED. NO COMPLAINTS AT THIS TIME. CALL LIGHTW ITHIN REACH. VS STABLE.
--- NOTE | 2019-01-31 19:50 | NUR ---
ROUNDS COMPLETED. VSS. AAOX3. NO S/S OF RR DISTRESS. BILARY DRAINAGE BAG INTACT, MELODIE DRAIN BAG INTACT WITH BLOODY DRAINAGE. PT ON SHUTTLE OPERATOR 0.2MG/ML DILAUDID NEEDED. FOUND PT BED WET. CHANGED PT SHEETS AND PROVIDED PT WITH FRESH LINENS. PT VOICED THANKS. PT DENIES ANY FUTHER NEEDS AT THIS TIME. WILL CPOC. CL IN REACH, BED IN LOW, SR UP X2.
--- NOTE | 2019-01-31 21:50 | NUR ---
DR. STANLEY STATES PT CAN GET A CUP OF COFFEE WITH SUGAR. CUP OF COFFEE PROVIDED PER PT REQUEST. MEDS GIVEN. PT DENIES ANY FURTHER NEEDS AT THIS TIME. WILL CTM.
--- NOTE | 2019-02-01 00:41 | NUR ---
MELODIE DRAIN EMPTIED PT PUT OUT 70CC'S OF BLOODY DRAINAIGE. ASSIST PT TO THE RESTROOM. PT DENIES ANY FURTHER NEEDS AT THIS TIME. WILL CTM.
[2019-02-01 05:32] VITALS: BP 105/72
[2019-02-01 06:12] LABS: BASOPHILS 0.5 % (0-2); EOSINOPHILS 2.3 % (0-7); HEMOGLOBIN 9.4 g/dL (13.5-17.5); IMMATURE GRANULOCYTES 1.6 % (0-5); LYMPHOCYTES 23.5 % (15-50); MCHC 33.6 g/dL (31.0-37.0); MONOCYTES 10.5 % (2-11); NEUTROPHILS 61.6 % (40-80); PLATELET COUNT 313 10x3/uL (130-400); RBC 3.03 10x6/uL (4.20-6.10); RDW 14.5 % (11.5-14.5); WBC 7.5 10x3/uL (4.8-10.8)
[2019-02-01 06:14] LABS: MCV 92.4 fL (80.0-100.0)
[2019-02-01 06:30] LABS: INR 1.31 (0.85-1.17); PROTIME 15.7 SECONDS (11.6-15.0)
[2019-02-01 06:38] LABS: ALBUMIN 1.8 g/dL (3.4-5.0); ALKALINE PHOSPHATASE 101 U/L (46-116); BILIRUBIN - TOTAL 1.54 mg/dL (0.2-1.3); CALCIUM 8.1 mg/dL (8.5-10.1); CARBON DIOXIDE 27.8 mmol/L (21.0-32.0); CHLORIDE - SERUM 107 mmol/L (98-107); CREATININE - SERUM 0.8 mg/dL (0.6-1.3); GLUCOSE 95 mg/dL (74-106); POTASSIUM - SERUM 3.5 mmol/L (3.5-5.1); PROTEIN - SERUM 5.6 g/dL (6.4-8.2); SODIUM 141 mmol/L (136-145); eGFR NON AFRICAN AMERICAN > 90 mL/min (90-120)
[2019-02-01 06:42] LABS: ALT (SGPT) 137 U/L (10-68); CALC OSMOLALITY 277 mosm/kg (275-300); UREA NITROGEN 5 mg/dL (7-18)
[2019-02-01 07:48] VITALS: BP 129/72
--- NOTE | 2019-02-01 11:10 | MORECARE ---
CASE MANAGEMENT DISCHARGE SUMMARY PATIENT: LIDIA GOFF UNIT: [id number] ADM DATE: 01/24/19 AGE: 63 : 51 SEX: M ROOM/BED: D.0237 AUTHOR: DIMLA,DOC PHYSICIAN: REFERRING PHYSICIAN: GARY BECKER MD DATE OF SERVICE: 02/01/19 Discharge Plan Patient Name: LIDIA GOFF Facility: [facility]:[place] : 1955 Planned Disposition: Home with Home Health Anticipated Discharge Date: 02/01/19 Discharge Date: Expected LOS: 8 Initial Reviewer: [email or web address] Initial Review Date: 01/29/2019 Generated: 02/01/19 12:10 pm Comments DCP- Discharge Planning Updated by [email or web address]: Perri Lugo on 02/01/19 10:[address] ON 01/31 DR KIRK CAME TO ME TO TALK TO ME ABOUT GETTING AN APPOINTMENT FOR THE PATIENT WITH DR HERRERA, BECAUSE HE FELT HE WOULD BE ABLE TO HELP THE PATIENT. I WAS GIVEN THE NAME OF LINN PIZANO TO CONTACT AND A FAX NUMBER OF [phone] AND A PHONE NUMBER OF [phone]. HE ASKED ME TO CALL AND FIND OUT WHAT ALL PAPERWORK THAT SHE WOULD NEED FAXED AND SOON WE HAD AN APPOINTMENT FOR HIM, THEN HE WOULD DISCHARGE THE PATIENT HOME WITH HOME HEALTH FOR MELODIE DRAIN AND T-TUBE CARE WELL PHYSICAL THERAPY. @1257 I PLACED A CALL TO LINN PIZANO AT THE NUMBER ABOVE. THE PHONE DOES NOT RING, IT JUST WENT STRAIGHT TO VOICEMAIL. I LEFT A MESSAGE WITHOUT PATIENT NAME SECONDARY TO THE OUTGOING MESSAGE NOT SAYING IT WAS CONFIDENTIAL. @ 1513 I CALLED AND LEFT A SECOND MESSAGE. NO RETURN CALL WAS RECEIVED BY THE TIME I LEFT. TODAY, @0956 I TRIED TO REACH HER AT THE NUMBER ABOVE AGAIN AND IT WENT STRAIGHT TO VOICEMAIL. I DID NOT LEAVE A VOICEMAIL AGAIN. I LOOKED UP CONTACT INFORMATION ON THE INTERNET AND THERE WERE 2 NUMBERS. THE FIRST ONE WAS [phone] (WHICH WHEN CALLED I RECEIVED A MESSAGE THAT SAID THE NUMBER I CALLED WAS UNAVAILABLE), THE SECOND NUMBER, , WAS AN DAYTIME CAREGIVER FOR [facility]??. I EXPLAINED THAT I WAS TRYING TO REACH LINN PIZANO WITH DR HERRERA AND SHE SENT ME TO THE GI CLINIC AT [phone]. I CALLED THE GI CLINIC AND WAS TOLD THAT DR HERRERA MAY BE A GI DOCTOR, BUT HE WORKED OUT OF THE [facility]. SHE DID NOT GIVE ME THE PHONE NUMBER, BUT TRANSFERRED ME THERE. BING ANSWERED THE PHONE, AND I TALKED TO HERE ABOUT WHAT I WAS TRYING TO DO, AND SHE TRANSFERRED ME AGAIN TO ANOTHER PERSON, I AM NOT SURE WHAT THE NAME OF THIS PERSON WAS, BUT SHE LISTENED TO WHAT I WAS TRYING TO DO, AND RECOMMENED THAT I CALL [phone] WITH THE GI CLINIC. I THEN EXPLAINED THAT I HAD ALREADY TALKED TO SOMEONE THERE THAT SAID I WOULD HAVE TO TALK TO THE MEDICAL ONCOLOGY AND EXPLAINED HOW MAY ATTEMPTS I HAVE MADE TO TALK TO SOMEONE, AND I EXPLAINED THAT I WOULD JUST CALL THE NUMBER BACK THAT I WAS GIVEN AND THEN LET DR KIRK KNOW WHAT ATTEMPTS WERE MADE TO CONTACT LINN PIZANO PER HIS REQUEST AND THAT I WAS JUST TRANSFERRED IN [place] AND I WAS UNSUCCESSFUL WITH MAKING THE APPOINTMENT. AT THIS TIME, SHE ASKED ME TO WAIT A MINUTE. SHE THEN STATED THAT SHE DOES NOT HAVE A DIRECT NUMBER FOR LINN, BUT SHE HAS HER EMAIL AND WOULD SEND HER A EMAIL STATING WHAT WE TALKED ABOUT AND SHE STATED THAT SHE HAS THE NUMBER [phone] THAT IS ATTACHED TO HER EMAIL. SHE TOOK MY CONTACT INFORMATION AND STATED THAT I SHOULD ALSO SEND HER AN EMAIL. I THANKED HER FOR HER TIME AND WE DISCONEECED AT 7248. @ 2958 I RECEIVED A CALL FROM LINN (CALLER ID SHOWED [phone]) SHE STARTED THE CONVERSATION BY RUDELY ASKING EXACTLY WHAT NUMBER I WAS GIVEN [facility] AND SHE WASN[facility]T RETURNING. I TOLD HER THE NUMBER WAS [phone]. SHE STATED THAT THAT NUMBER IS NO LONGER USED AND NEEDED TO BE...(SHE NEVER FINISHED THE SENTENCE). SHE STATED THAT DR HERRERA HAD NOT DISCUSSED ANY PATIENT WITH HER AND THAT TO START THE PROCESS I WOULD NEED TO FAX HER A DEMOGRAPHIC SHEET WITH INSURANCE INFORMATION, THE ADMISSION H&P, THE MED LIST (NOT THE ONE THAT HAS THE EXACT TIME OF MEDS BEING ADMINISTERED, JUST A LIST OF MEDS), ALL CT, MRI, AND ENDOSCOPY REPORT. SHE GAVE THE FAX NUMBER OF: [phone]. SHE STATED THAT IT COULD BE A FEW WEEKS OUT, AND I ASKED HOW LONG WOULD IT TAKE TO GET THE APPOINTMENT, DR KIRK HAS EXPRESSED THAT HE WILL DISCHARGE HOME WITH THE MELODIE DRAIN AND T-TUBE, BUT HE WON'T UNTIL WE HAVE A CONFIRMED APPOINTMENT. SHE STATED AFTER SHE GETS THE INFORMATION, SHE WILL HAVE SCHEDULING CALL WITH AN APPOINTMENT. I WILL FAX THE INFORMATION. DCP- Discharge Planning Updated by [email or web address]: Robb Vargas on 01/31/19 2:[address] Patient Name: LIDIA GOFF Encounter No: [id number] : 1955 Primary Insurance: MEDICARE A & B Anticipated DC Date: 02-01-2019 Planned Disposition: Home with Home Health External Planned Provider: [facility] DCP follow-up note: CM RECEIVED ORDER FOR HOME HEALTH. CM MET WITH PT IN ROOM TO DISCUSS DISCHARGE NEEDS AND PLANNING. CM DISCUSSED AVAILABILITY OF HOME HEALTH, REHAB SERVICES AND MEDICAL EQUIPMENT. PT WILL ACCEPT HOME HEALTH, PROVIDER LISTING GIVEN, PT SIGNED CONSENT WITH NO PROVIDER PREFERENCE. DAUGHTER TO TRANSPORT HOME AT DISCHARGE. IMPORTANT MESSAGE FROM MEDICARE PROVIDED AND EXPLAINED. CM CALLED [facility], , SPOKE TO JASON, REFERRAL PROVIDED, PT PLACED ON SCHEDULE FOR TUESDAY. CM FAXED REFERRAL INFORMATION TO [facility] AT [phone]. FOR DISCHARGE, FAX DISCHARGE INFORMATION TO [facility] AT [phone]. CALL AND NOTIFY [facility] OF DISCHARGE AT [phone]. Robb Vargas, CASE MANAGEMENT DCP- Discharge Planning Updated by [id number]: Robb Vargas on 01/29/19 1:[address] Patient Name: LIDIA GOFF Admission Status: ER Accout number: [id number] Admission Date: 01-24-2019 : 1955 Admission Diagnosis: Attending: GARY MANCILLA Current LOS: 5 Anticipated DC Date: 01-30-2019 Planned Disposition: Home Primary Insurance: MEDICARE A & B Discharge Planning Comments: CM MET WITH PT IN ROOM TO DISCUSS DISCHARGE PLANNING AND NEEDS. PT REPORTS LIVING AT HOME INDEPENDENTLY WITH HIS ADULT DAUGHTER AND HER CHILDREN. PT HAS NO MEDICAL EQUIPMENT AND NO OUTSIDE SERVICES ASSISTING IN THE HOME. CM DISCUSSED AVAILABILITY OF HOME HEALTH, REHAB SERVICES AND MEDICAL EQUIPMENT. PT DENIES DISCHARGE NEEDS STATING HE IS JUST HAVING HIS GALLBLADDER OUT. PT REPORTS FAMILY WILL PICK HIM UP FOR DISCHARGE HOME. PT REPORTS HAVING RECEIVED BAD CARE. CM PROVIDED PT WITH [facility] AND CM CONTACT NUMBERS, ENCOURAGED PT TO SPEAK TO [facility] REGARDING CARE COMPLAINTS. PT PLANS TO DISCHARGE HOME WITH FAMILY, DENIES DISCHARGE NEEDS. CM TO FOLLOW AND ASSIST IF NEEDED. Manager Corporate Strategy: Robb Vargas DCPIA - Discharge Planning Initial Assessment Updated by MARIANNE: Robb Vargas on 01/29/19 2:17 pm * Is the patient Alert and Oriented? Yes * How many steps to enter\exit or inside your home? NONE * PCP DR RODRIGUEZ * Pharmacy [facility] * Preadmission Environment Home with Family * ADLs Independent * Equipment None * Other Equipment NO MEDICAL EQUIPMENT PROVIDER PREFERENCE * List name and contact numbers for known caregivers / representatives who currently or will assist patient after discharge: ELEONORA COLINDRES, * Verbal permission to speak to the caregivers and representatives has been obtained from the patient. N/A * Community resources currently utilized None * Please name any agencies selected above. NONE * Additional services required to return to the preadmission environment? No * Can the patient safely return to the preadmission environment? Yes * Has this patient been hospitalized within the prior 30 days at any hospital? No Coverage Notice Reviewer: [id number] Marcelino Vargas Notice Issued Date-Time: 01/31/2019 14:30 Notice Type: Patient Choice Letter Notice Delivered To: Patient Relationship to Patient: Tape Recording Machine Operator Name: Delivery Method: HAND - Hand Delivered Pilar Days: Prior Verbal Notification: Recipient Understood Notice: Yes Recipient Signature: Yes Med Rec Note Co-signed by Attending: Coverage Notice Comment: NO HOME HELATH PREFERENCE Reviewer: [id number] Marcelino Vargas Notice Issued Date-Time: 01/31/2019 14:30 Notice Type: IM Discharge Notice Notice Delivered To: Patient Relationship to Patient: Tape Recording Machine Operator Name: Delivery Method: HAND - Hand Delivered Pilar Days: Prior Verbal Notification: Recipient Understood Notice: Yes Recipient Signature: Yes Med Rec Note Co-signed by Attending: Coverage Notice Comment: Last DP export: 01/31/19 3:16 pm Patient Name: LIDIA GOFF Page 12152 at 1110 All edits/amendments must be made on the electronic document DICTATION DATE: 02/01/19 111 CHILD CARE AIDE: ONEL 02/01/19 111 RPT#: [id number] DC DATE: STATUS: ADM IN [facility] [address] [place] [id number] END OF REPORT
[2019-02-01 12:29] VITALS: BP 132/68
--- NOTE | 2019-02-01 14:31 | NUR ---
Nutrition follow-up: Pt remains NPO; has been NPO x 9 days. NGT out Labs reviewed Pt now assessed with severe malnutrition of acute illness R/T cholangitis AEB < 50% intake of estimated energy needs for > 7 days; > 2% weight loss in 7 days (Admit wt 155# no 152#). Pt needs TPN started today if po diet unable to begin. Recommend D20W,5%AA @ 40 ml/hr with 20% 250 ml intralipids Q 48 hours if TG are WNL. RDN following.
[2019-02-01 20:00] VITALS: BP 115/65
--- NOTE | 2019-02-01 20:18 | NUR ---
ROUNDS COMPLETED. VSS. PT APPEARS LETHARGIC, AND NON-VERBAL AT THIS TIME. ONLY STATES THAT HE FEELS A LITTLE COLD. PROVIDED PT WITH WARM. BLANKET. MELODIE DRAIN AND BILIARY DRAIN INTACT DRESSING C/D/I. MANAGER UNDERWRITING INFUSING @ 0.2MG/10MIN PRN. PT CURRENTLY RESTING IN BED WITH EYES CLOSED. WILL CTM. CL/MANAGER UNDERWRITING LIGHT IN REACH. BED IN LOW, SR UP X2.
--- NOTE | 2019-02-01 23:10 | NUR ---
EMPTIED PT MELODIE DRAIN. PT PUT OUT 70CC'S. PT CURRENTLY RESTING IN BED WITH EYES CLOSED. WILL CTM. CL IN REACH.
[2019-02-02] VITALS: BP 109/60
[2019-02-02 04:30] VITALS: BP 107/59
--- NOTE | 2019-02-02 05:29 | NUR ---
EMPTIED PT'S T-TUBE AND BILI DRAIN. PT PUT OUT 50CC'S FROM T-TUBE AND 700CC'S FROM BILIDRAIN. ASSIST PT TO BATHROOM. PT CURRENTLY RESTING IN BED WITH EYES CLOSED. DENIES ANY FURTHER NEEDS. WILL CPOC.
[2019-02-02 06:14] LABS: BASOPHILS 0.3 % (0-2); EOSINOPHILS 0.9 % (0-7); HEMATOCRIT 26.3 % (42.0-54.0); HEMOGLOBIN 8.8 g/dL (13.5-17.5); IMMATURE GRANULOCYTES 0.7 % (0-5); LYMPHOCYTES 18.9 % (15-50); MCHC 33.5 g/dL (31.0-37.0); MCV 92.6 fL (80.0-100.0); MEAN PLATELET VOLUME 9.4 fL (7.4-10.4); MONOCYTES 8.2 % (2-11); PLATELET COUNT 354 10x3/uL (130-400); RBC 2.84 10x6/uL (4.20-6.10); RDW 13.8 % (11.5-14.5); WBC 8.9 10x3/uL (4.8-10.8)
[2019-02-02 06:38] LABS: ALBUMIN 1.7 g/dL (3.4-5.0); ALKALINE PHOSPHATASE 93 U/L (46-116); ALT (SGPT) 150 U/L (10-68); BILIRUBIN - TOTAL 1.61 mg/dL (0.2-1.3); CALC OSMOLALITY 273 mosm/kg (275-300); CHLORIDE - SERUM 105 mmol/L (98-107); CREATININE - SERUM 0.8 mg/dL (0.6-1.3); GLUCOSE 104 mg/dL (74-106); POTASSIUM - SERUM 3.4 mmol/L (3.5-5.1); PROTEIN - SERUM 5.6 g/dL (6.4-8.2); SODIUM 138 mmol/L (136-145); UREA NITROGEN 7 mg/dL (7-18); eGFR NON AFRICAN AMERICAN > 90 mL/min (90-120)
[2019-02-02 09:40] VITALS: BP 111/59
[2019-02-02 13:14] VITALS: BP 119/59
[2019-02-02 17:45] VITALS: BP 117/72
[2019-02-02 20:00] VITALS: BP 128/61
--- NOTE | 2019-02-02 22:07 | NUR ---
URINE CULTURE COLLECTED AND SENT TO THE LAB. PT CURRENLTY RESTING IN BED WITH EYES CLOSED. DENIES ANY FURTHER NEEDS AT THIS TIME.
[2019-02-03] VITALS (7 sets, daily range): BP systolic 102–119; BP diastolic 62–68
[2019-02-03 06:26] LABS: ALBUMIN 1.8 g/dL (3.4-5.0); ALKALINE PHOSPHATASE 86 U/L (46-116); ALT (SGPT) 113 U/L (10-68); AMYLASE - SERUM 24 U/L (25-115); BILIRUBIN - TOTAL 1.28 mg/dL (0.2-1.3); CALC OSMOLALITY 275 mosm/kg (275-300); CALCIUM 7.9 mg/dL (8.5-10.1); CARBON DIOXIDE 26.4 mmol/L (21.0-32.0); CHLORIDE - SERUM 106 mmol/L (98-107); CREATININE - SERUM 0.8 mg/dL (0.6-1.3); GLUCOSE 95 mg/dL (74-106); LIPASE 105 U/L (73-393); POTASSIUM - SERUM 3.9 mmol/L (3.5-5.1); PROTEIN - SERUM 6.1 g/dL (6.4-8.2); SODIUM 139 mmol/L (136-145); UREA NITROGEN 7 mg/dL (7-18); eGFR NON AFRICAN AMERICAN > 90 mL/min (90-120)
[2019-02-03 06:27] LABS: BASOPHILS 0.3 % (0-2); EOSINOPHILS 3.6 % (0-7); HEMATOCRIT 27.1 % (42.0-54.0); HEMOGLOBIN 9.2 g/dL (13.5-17.5); IMMATURE GRANULOCYTES 1.1 % (0-5); MCH 31.1 pg (26.0-34.0); MCHC 33.9 g/dL (31.0-37.0); MCV 91.6 fL (80.0-100.0); MEAN PLATELET VOLUME 9.7 fL (7.4-10.4); MONOCYTES 8.9 % (2-11); NEUTROPHILS 59.1 % (40-80); PLATELET COUNT 354 10x3/uL (130-400); RBC 2.96 10x6/uL (4.20-6.10); RDW 13.9 % (11.5-14.5); WBC 7.6 10x3/uL (4.8-10.8)
--- NOTE | 2019-02-03 12:08 | NUR ---
PTS LIVE IN HOUSEKEEPER PUMP EMPTY. CHANGED OUT SYRINGE FOR PT. MILKED MELODIE DRAIN AND EMPTIED 50 BLOODY DRAINAGE, EMPTIED T-TUBE OF 40ML AND BILIARY DRAIN OF 100ML. PT SITTING UP IN BED RESTING QUIETLY INQURING ABOUT ADVANCING HIS DIET TO REGULAR. WILL DISCUSS WITH PRIMARY. NO CURRENT NEEDS AT THIS TIME. CL IN REACH, BED IN LOWEST, SIDE RAILS X2. WILL CTM.
--- NOTE | 2019-02-03 16:44 | NUR ---
ASSISTED PT TO BR AND HE VOIDED 300CC OF CLEAR YELLOW URINE WITHOUT ANY DIFFICULTIES. PT TRIED HAVING A BOWEL MOVEMENT BUT WASNT SUCCESSFUL. PT WILL GET TO TRY A REGULAR DIET FOR DINNER AND MAYBE BE ABLE TO PRODUCE A BOWEL MOVEMENT. MILKED MELODIE DRAIN AND EMPTIED 40CC OF BLOODY OUTPUT AND COMPRESSED IT AGAIN. EMPTIED BILIARY DRAIN WELL AND RECORDED AMOUNT WITH SUBTRACTION OF 10CC FLUSH ORDERED. PT BACK IN BED RESTING QUIETLY VISITING WITH HIS FAMILY. NO CURRENT NEEDS AT THIS TIME. CL IN REACH, BED IN LOWEST, SIDE RAILS X2. WILL CTM.
--- NOTE | 2019-02-03 19:41 | NUR ---
RECIEVED SITTING UP ON SIDE OF BED. ALERT AND ORIENTED X4. UP AD JAYLEN. T-TUBE, BILLAR TUBE AND MELODIE TUBE TO RIGHT SIDE. IV TO RIGHT HAND WITH NS INFUSING AT 785ML/HR. LARGE INCISION TO MID TO RIGHT SIDE OF ABDOME WITH LISA INTACT. SOME REDNESS TO AREA. NO DRAINAGE. VOICES CONCERNS OF PAIN MEDICATION. WANTING TO KNOW WHAT HE CAN HAVE ONCE HIS CONTEMPORARY OR MODERN DANCER RUNS OUT. EDUCATED ON PAIN MEDICATION AND VERBAL UNDERSTANDING GIVEN. DENIES ANY OTHER NEEDS AT THIS TIME.
[2019-02-04 04:30] VITALS: BP 118/64
[2019-02-04 05:34] LABS: BASOPHILS 0.4 % (0-2); EOSINOPHILS 2.4 % (0-7); HEMATOCRIT 26.3 % (42.0-54.0); HEMOGLOBIN 8.7 g/dL (13.5-17.5); IMMATURE GRANULOCYTES 0.7 % (0-5); LYMPHOCYTES 15.3 % (15-50); MCH 30.6 pg (26.0-34.0); MCHC 33.1 g/dL (31.0-37.0); MCV 92.6 fL (80.0-100.0); MEAN PLATELET VOLUME 8.9 fL (7.4-10.4); MONOCYTES 9.5 % (2-11); NEUTROPHILS 71.7 % (40-80); PLATELET COUNT 323 10x3/uL (130-400); RBC 2.84 10x6/uL (4.20-6.10); RDW 13.5 % (11.5-14.5); WBC 8.2 10x3/uL (4.8-10.8)
[2019-02-04 05:52] LABS: ALBUMIN 1.8 g/dL (3.4-5.0); ALKALINE PHOSPHATASE 76 U/L (46-116); ALT (SGPT) 88 U/L (10-68); AMYLASE - SERUM 27 U/L (25-115); BILIRUBIN - TOTAL 1.16 mg/dL (0.2-1.3); CALC OSMOLALITY 271 mosm/kg (275-300); CARBON DIOXIDE 24.4 mmol/L (21.0-32.0); CHLORIDE - SERUM 104 mmol/L (98-107); CREATININE - SERUM 0.8 mg/dL (0.6-1.3); GLUCOSE 133 mg/dL (74-106); LIPASE 127 U/L (73-393); POTASSIUM - SERUM 3.3 mmol/L (3.5-5.1); PROTEIN - SERUM 5.6 g/dL (6.4-8.2); SODIUM 136 mmol/L (136-145); UREA NITROGEN 6 mg/dL (7-18); eGFR NON AFRICAN AMERICAN > 90 mL/min (90-120)
[2019-02-04 07:56] VITALS: BP 113/64
--- NOTE | 2019-02-04 10:30 | NUR ---
PT RESTING QUIETLY IN BED A LOT MORE SLEEPY TODAY BUT RR NONLABORED ON RA. PT DENIES ANY CURRENT PAIN OR NEEDS. DID NOT WAKE FOR BREAKFAST. WILL ALLOW HIM TO REST AND CPOC.
--- NOTE | 2019-02-04 10:41 | NUR ---
PTS POTASSIUM REDRAW 4.1 NO FURTHER COVERAGE NEEDED.
[2019-02-04 11:22] VITALS: BP 132/70
[2019-02-04 16:49] VITALS: BP 109/53
--- NOTE | 2019-02-04 16:57 | NUR ---
PT WANTED TO TAKE A SHOWER SO WE COVERED HIS PIV SITE. PT TOOK A SHOWER AND STATES IT FELT GREAT. CLEANSED EACH DRAIN SITE AND PATTED DRY. THEN COVERED WITH AUBREY DRAINAGE SPONGE AND PLACED TEGADERM OVER EACH SITE. EACH SITE IS SUTURED IN AND HAVE SLIGHT REDDNESS AROUND INSERTION HOWEVER NO DRAINAGE OR ISSUES NOTED. DRAINED 300ML OF GREEN LIQUID FROM BILIARY DRAIN. REMOVED 40ML OF GREEN LIQUID FROM T-TUBE THEN MILKED AND DRAINED 30ML OF SEROSANGIOUS FLUID FROM MELODIE DRAIN. MELODIE DRAIN NOW COMPRESSED AND PT BACK IN BED RESTING QUIETLY. PT C/O PAIN AND WAS PROVIDED WITH PRN PAIN MEDICATION. REMOVED PACKING AND DRSG FROM LAP INCISION THEN CLEANSED WITH WOUND CLEANSER PATTED DRY AND REPACKED WITH 1 PIECE OF GUAZE PTS ABDOMINAL WOUND PER VERBAL INSTRUCTIONS. SECURED WITH TAPE. PTS INCISION IS REDDENED AT THE BOTTOM OF IT AND HARDENED AROUND THE EDGES, IS AWARE AND HAD REMOVED 1 STAPLE OUT OF THE INCISION AND PUSHED SOME FLUID OUT THAT HAD BUILT UP. WILL CONTINUE TO MONITER IT. PT DENIES ANY FURTHER NEEDS AT THIS TIME. CL IN REACH, BED IN LOWEST, SIDE RAILS X2. WILL CTM.
--- NOTE | 2019-02-04 19:52 | NUR ---
RECIEVED LAYING IN BED WITH EYES OPEN AND MANY VISITORS AT BEDSIDE. ALERT AND ORIENTED X4. UP AD JAYLEN. STAPLE TO ABD WITH 2 DSG'S TO SITE. T-TUBE,BILL TUBE AND MELODIE DRAIN TO RIGHT SIDE OF ABD. DSG'S CDI. IV TO RIGHT HAND WITH NS INFUSING AT 75 CC/HR. UPSET OVER COMPLETIONS MANAGER BEING DISCONTINUED. EDUCATED ON NEW ORDERS FOR PAIN MEDICATION. VOICED UNDERSTANDING.
[2019-02-04 20:07] VITALS: BP 107/63
[2019-02-04 23:49] VITALS: BP 108/69
[2019-02-05] VITALS (11 sets, daily range): BP systolic 90–118; BP diastolic 50–66
[2019-02-05 05:22] LABS: BASOPHILS 0.3 % (0-2); EOSINOPHILS 3.2 % (0-7); HEMATOCRIT 27.5 % (42.0-54.0); IMMATURE GRANULOCYTES 0.8 % (0-5); LYMPHOCYTES 22.5 % (15-50); MCH 30.7 pg (26.0-34.0); MCHC 32.7 g/dL (31.0-37.0); MCV 93.9 fL (80.0-100.0); MONOCYTES 8.6 % (2-11); NEUTROPHILS 64.6 % (40-80); PLATELET COUNT 357 10x3/uL (130-400); RBC 2.93 10x6/uL (4.20-6.10); RDW 13.6 % (11.5-14.5); WBC 9.2 10x3/uL (4.8-10.8)
[2019-02-05 05:31] LABS: ALBUMIN 1.8 g/dL (3.4-5.0); ALKALINE PHOSPHATASE 73 U/L (46-116); AMYLASE - SERUM 28 U/L (25-115); BILIRUBIN - TOTAL 0.98 mg/dL (0.2-1.3); CALC OSMOLALITY 271 mosm/kg (275-300); CALCIUM 7.7 mg/dL (8.5-10.1); CARBON DIOXIDE 25.7 mmol/L (21.0-32.0); CHLORIDE - SERUM 106 mmol/L (98-107); CREATININE - SERUM 0.9 mg/dL (0.6-1.3); GLUCOSE 99 mg/dL (74-106); LIPASE 126 U/L (73-393); POTASSIUM - SERUM 4.2 mmol/L (3.5-5.1); PROTEIN - SERUM 5.8 g/dL (6.4-8.2); SODIUM 137 mmol/L (136-145); UREA NITROGEN 6 mg/dL (7-18); eGFR NON AFRICAN AMERICAN 90 mL/min (90-120)
[2019-02-05 05:34] LABS: ALT (SGPT) 65 U/L (10-68)
--- NOTE | 2019-02-05 07:10 | NUR ---
ASSESSMENT PER FLOW SHEET. PT IS VERY SLEEPY THIS AM. AWAKENS INT.CALL LIGHT IN REACH.NPO FOR PROCEDURE THIS AM.
[2019-02-05 08:06] LABS: APTT 39.3 SECONDS (22.8-39.4); INR 1.4 (0.85-1.17); PROTIME 16.6 SECONDS (11.6-15.0)
--- NOTE | 2019-02-05 10:41 | NUR ---
TO IR VIA BED
--- NOTE | 2019-02-05 11:25 | NUR ---
CALL FROM FAMILY. PASSWORD NOT SET UP. INSTRUCTED FAMILY TO CALL BACK SHORTLY. PT WAS OFF UNIT AT THIS TIME.
--- NOTE | 2019-02-05 14:10 | NUR ---
BACK FROM PROCEDURES,AWAKENS INT. 02 SATS 95-99% ON 2 LITERS PER NASAL CANULA. VSS SEE GRAPHICS
--- NOTE | 2019-02-05 16:59 | NUR ---
STILL RESTING,WITHOUT SIGNS OF DISTRESS
--- NOTE | 2019-02-05 18:36 | NUR ---
REMAINS WITHOUT CHANGE.CONT PLAN OF CARE
--- NOTE | 2019-02-05 19:33 | NUR ---
EVENING ROUNDS COMPLETED. REPORT RECEIVED. PT SITTING UP IN BED WITH EYES CLOSED, RR EVEN AND UNLABORED. BED IN LOW POSITION. NO S/S OF DISTRESS. WHITEBOARD UPDATED. CALL LIGHT IN REACH. WILL CTM.
--- NOTE | 2019-02-05 23:22 | NUR ---
20 MLS EMPTIED FROM MELODIE DRAIN. 50 MLS EMPTIED FROM BILIARY DRAIN. 70 MLS EMPTIED FROM T TUBE.
[2019-02-06 01:56] VITALS: BP 86/56
--- NOTE | 2019-02-06 05:00 | NUR ---
I have reviewed this patient and I concur with the Shift Assessment completed by the Licensed Practical Nurse today this shift.
[2019-02-06 06:09] LABS: BASOPHILS 0.2 % (0-2); EOSINOPHILS 1.3 % (0-7); HEMATOCRIT 27.1 % (42.0-54.0); HEMOGLOBIN 8.9 g/dL (13.5-17.5); IMMATURE GRANULOCYTES 0.6 % (0-5); LYMPHOCYTES 19.6 % (15-50); MCH 30.8 pg (26.0-34.0); MCHC 32.8 g/dL (31.0-37.0); MCV 93.8 fL (80.0-100.0); MONOCYTES 8.1 % (2-11); NEUTROPHILS 70.2 % (40-80); PLATELET COUNT 332 10x3/uL (130-400); RBC 2.89 10x6/uL (4.20-6.10); RDW 13.8 % (11.5-14.5); WBC 10.4 10x3/uL (4.8-10.8)
[2019-02-06 06:23] VITALS: BP 86/53
[2019-02-06 07:44] VITALS: BP 92/51
--- NOTE | 2019-02-06 07:46 | NUR ---
MORNING ROUNDS MADE. PT LAYING IN BED RESTING. DENIES PAIN AT THIS TIME. A/O X 4. L HAND IV WITH NS @ 75 ML/HR, PATENT, NO REDNESS OR EDEMA NOTED. DRSG C/D/I. 2L 02 VIA NC. BREATHING EVEN AND NON LABORED. DRSG TO R ABD, C/D/I. NO FURTHER CONCERNS AT THIS TIME. FALL PRECAUTIONS IN PLACE. YELLOW GOWN ON. NON SKID SOCKS ON. BED LOWERED AND LOCKED. CL IN REACH. WILL CTM.
--- NOTE | 2019-02-06 08:48 | NUR ---
VITALS STABLE. PT TOOK MEDS SLOWLY. ASSISTED PT UP IN BED. BREATHING EVEN AND UNLABORED. PT DENIES C/O PAIN AT THIS TIME. FALL PRECAUTIONS IN PLACE. WILL CTM
[2019-02-06 11:33] LABS: BASOPHILS 0.2 % (0-2); EOSINOPHILS 1.8 % (0-7); HEMATOCRIT 27.2 % (42.0-54.0); HEMOGLOBIN 8.9 g/dL (13.5-17.5); IMMATURE GRANULOCYTES 0.6 % (0-5); LYMPHOCYTES 19.5 % (15-50); MCH 30.8 pg (26.0-34.0); MCHC 32.7 g/dL (31.0-37.0); MCV 94.1 fL (80.0-100.0); MEAN PLATELET VOLUME 8.9 fL (7.4-10.4); MONOCYTES 10.1 % (2-11); NEUTROPHILS 67.8 % (40-80); PLATELET COUNT 308 10x3/uL (130-400); RBC 2.89 10x6/uL (4.20-6.10); RDW 13.7 % (11.5-14.5); WBC 9.8 10x3/uL (4.8-10.8)
[2019-02-06 11:43] LABS: ALBUMIN 1.8 g/dL (3.4-5.0); ALKALINE PHOSPHATASE 69 U/L (46-116); ALT (SGPT) 55 U/L (10-68); BILIRUBIN - TOTAL 0.96 mg/dL (0.2-1.3); CALC OSMOLALITY 260 mosm/kg (275-300); CALCIUM 7.8 mg/dL (8.5-10.1); CARBON DIOXIDE 23.9 mmol/L (21.0-32.0); CHLORIDE - SERUM 103 mmol/L (98-107); CREATININE - SERUM 0.8 mg/dL (0.6-1.3); GLUCOSE 105 mg/dL (74-106); POTASSIUM - SERUM 3.9 mmol/L (3.5-5.1); PROTEIN - SERUM 5.7 g/dL (6.4-8.2); SODIUM 131 mmol/L (136-145); eGFR NON AFRICAN AMERICAN > 90 mL/min (90-120)
[2019-02-06 11:45] LABS: UREA NITROGEN 8 mg/dL (7-18)
[2019-02-06 11:49] VITALS: BP 104/55
--- NOTE | 2019-02-06 12:30 | NUR ---
PT C/O PAIN IN R ABD. NORCO GIVEN. TAKEN WITHOUT DIFFICULTY.
[2019-02-06 14:57] VITALS: BP 98/58
[2019-02-06 20:31] VITALS: BP 104/64
[2019-02-07] VITALS (10 sets, daily range): BP systolic 95–121; BP diastolic 54–75
--- NOTE | 2019-02-07 03:47 | NUR ---
I have reviewed this patient and I concur with the Shift Assessment completed by the Licensed Practical Nurse today this shift.
[2019-02-07 06:25] LABS: BASOPHILS 0.3 % (0-2); EOSINOPHILS 2.3 % (0-7); HEMATOCRIT 26.9 % (42.0-54.0); HEMOGLOBIN 8.8 g/dL (13.5-17.5); IMMATURE GRANULOCYTES 0.6 % (0-5); LYMPHOCYTES 24.1 % (15-50); MCH 30.3 pg (26.0-34.0); MCHC 32.7 g/dL (31.0-37.0); MCV 92.8 fL (80.0-100.0); MONOCYTES 11.4 % (2-11); NEUTROPHILS 61.3 % (40-80); PLATELET COUNT 329 10x3/uL (130-400); RDW 13.4 % (11.5-14.5); WBC 8.6 10x3/uL (4.8-10.8)
[2019-02-07 06:41] LABS: APTT 38.2 SECONDS (22.8-39.4); INR 1.5 (0.85-1.17); PROTIME 17.5 SECONDS (11.6-15.0)
[2019-02-07 07:04] LABS: ALBUMIN 1.8 g/dL (3.4-5.0); ALKALINE PHOSPHATASE 63 U/L (46-116); ALT (SGPT) 45 U/L (10-68); BILIRUBIN - TOTAL 0.82 mg/dL (0.2-1.3); CALC OSMOLALITY 267 mosm/kg (275-300); CALCIUM 7.8 mg/dL (8.5-10.1); CARBON DIOXIDE 24.1 mmol/L (21.0-32.0); CHLORIDE - SERUM 106 mmol/L (98-107); CREATININE - SERUM 0.7 mg/dL (0.6-1.3); GLUCOSE 95 mg/dL (74-106); POTASSIUM - SERUM 3.8 mmol/L (3.5-5.1); PROTEIN - SERUM 5.9 g/dL (6.4-8.2); SODIUM 135 mmol/L (136-145); UREA NITROGEN 7 mg/dL (7-18); eGFR NON AFRICAN AMERICAN > 90 mL/min (90-120)
--- NOTE | 2019-02-07 08:07 | NUR ---
MORNING ROUNDS MADE. PT STATED THAT HE NEEDED TO USE THE RESTROOM. WHEN ATTEMPTING TO ASSIST PT TO USE THE URINAL PT GOT FRUSTRATED. PT C/O PAIN WHEN SITTING UP ON SIDE OF BED. PT LAID BACK DOWN AND SAID "FORGET IT I JUST WANT TO LAY DOWN, IT HURTS TO BAD", I INFORMED PT THAT IT'S NOT YET TIME FOR PAIN MEDICATION. IV TO L HAND WITH NS @ 75 ML/HR, PATENT, NO REDNESS OR EDEMA NOTED, DRSG C/D/I. 2L 02 VIA NC. DRSG TO R ABD, LIGHT RED DRAINAGE NOTED, PT WONT LET NURSE CHANGE DUE TO PAIN. NO FURTHER CONCERNS AT THIS TIME. FALL PRECAUTIONS IN PLACE. WILL CTM.
--- NOTE | 2019-02-07 08:52 | NUR ---
Nutrition follow-up: Pt NPO for procedure today PO intake of regular diet has been ~75% average of last 8 meals Labs reviewed Wt: 155# +BM Pt c/o pain; nurse is aware RDN following.
--- NOTE | 2019-02-07 10:23 | NUR ---
PREOP GIVEN TO PT.
--- NOTE | 2019-02-07 10:25 | NUR ---
PT TO SPECIALS VIA BED
--- NOTE | 2019-02-07 11:42 | NUR ---
I have reviewed this patient and I concur with the Shift Assessment completed by the Licensed Practical Nurse today this shift.
--- NOTE | 2019-02-07 15:32 | NUR ---
PT BACK TO FLOOR FROM PROCEDURE. PT LETHARGIC AT THIS TIME. VITALS STABLE. FALL BILIARY DRAIN, MELODIE DRAIN, AND T TUBE DRAIN TO R ABD INTACT, DRSG C/D/I. 3L 02 VIA NC. BREATHING EVEN AND UNLABORED. NO FURTHER CONCERNS AT THIS TIME. FALL PREACAUTIONS IN PLACE. SR UP X 3. BED LOWERED AND LOCKED. CL IN REACH. WILL CTM.
--- NOTE | 2019-02-07 20:00 | NUR ---
RESUMING PT CARE. PT IS ALERT LAYING IN BED. NO S/S OF DISTRESS NOTED. BED IN LOW POSITION WITH CALL LIGHT IN REACH. SIDE RAILS UP X 2. WILL CONTINUE TO MONITOR PT AND FOLLOW PLAN OF CARE.
--- NOTE | 2019-02-08 02:10 | NUR ---
I have reviewed this patient and I concur with the Shift Assessment completed by the Licensed Practical Nurse today this shift.
--- NOTE | 2019-02-08 02:26 | NUR ---
PT IV BEEPING. NURSE CHECKED ON IV PUMP AND FOUND PT LAYING TOWARD FOOT OF BED 3 RIGHT SIDE DRAINS HANGING AND PT IS NAKED. THE HEATER IS GOING NON STOP IN ROOM. PUT HEAT UNIT ON AUTO SO IT WILL SHUT OFF ONCE ON DESIRED DEGREE. HAD ANOTHER NURSE ASSIST WITH REPOSITIONING. PT ASSISTED WITH MOVING UP IN BED. FIXED COVERS AND EMPTIED DRAINS. MELODIE DRAIN HAD SEROSANGIOUS FLUID 50ML. BULB NOW COMPRESSED. UPPER BILI DRAIN EMPTIED 50ML DARK GREEN FLUID, THICK FLUID DRAIN BELOW THE UPPER DRAIN HAS GREEN, THINNER FLUID, NOT DARK UPPER DRAIN. 250ML EMPTIED FROM DRAIN. PT HAS NO S/S OF DISTRESS. CLEANED ROOM UP, TOWELS ON FLOOR WHERE PT HAS BEEN URINATING ON THEM. PT BED LOW AND CALL LIGHT IN REACH. ALARM ON AND ACTIVE. PT WILL CALL FOR ASSIST WHEN NEEDED. WILL CPOC
[2019-02-08 05:20] VITALS: BP 115/59
[2019-02-08 05:55] LABS: BASOPHILS 0.2 % (0-2); EOSINOPHILS 0.3 % (0-7); HEMOGLOBIN 9.5 g/dL (13.5-17.5); IMMATURE GRANULOCYTES 0.2 % (0-5); LYMPHOCYTES 13.8 % (15-50); MCH 30.4 pg (26.0-34.0); MCHC 32.8 g/dL (31.0-37.0); MCV 92.9 fL (80.0-100.0); MEAN PLATELET VOLUME 9.4 fL (7.4-10.4); MONOCYTES 6.1 % (2-11); NEUTROPHILS 79.4 % (40-80); PLATELET COUNT 376 10x3/uL (130-400); RBC 3.12 10x6/uL (4.20-6.10); RDW 13.4 % (11.5-14.5)
[2019-02-08 05:57] LABS: WBC 12.2 10x3/uL (4.8-10.8)
[2019-02-08 06:14] LABS: ALBUMIN 1.8 g/dL (3.4-5.0); ALKALINE PHOSPHATASE 69 U/L (46-116); ALT (SGPT) 34 U/L (10-68); BILIRUBIN - TOTAL 0.79 mg/dL (0.2-1.3); CALC OSMOLALITY 272 mosm/kg (275-300); CALCIUM 7.9 mg/dL (8.5-10.1); CARBON DIOXIDE 21.2 mmol/L (21.0-32.0); CHLORIDE - SERUM 106 mmol/L (98-107); CREATININE - SERUM 0.8 mg/dL (0.6-1.3); GLUCOSE 94 mg/dL (74-106); PROTEIN - SERUM 6.1 g/dL (6.4-8.2); SODIUM 138 mmol/L (136-145); eGFR NON AFRICAN AMERICAN > 90 mL/min (90-120)
--- NOTE | 2019-02-08 06:28 | NUR ---
PT RUNNING IN THE LOW 50'S ON HEART MONITOR. DR. STALEY WAS CALLED AND NOTIFIED. AND CARDIZEM DRIP WAS STOPPED. DR. PETERSON ORDERED CARDIZEM 120MG PO EXTENDED RELEASE DAILY.
[2019-02-08 06:45] LABS: UREA NITROGEN 5 mg/dL (7-18)
[2019-02-08 08:00] VITALS: BP 142/61
--- NOTE | 2019-02-08 09:20 | NUR ---
MORNING ROUNDS MADE. PT LAYING IN BED RESTING. STATES DISCOMFORT TO RUQ. A/O X 4. UP WITH ASSISTANCE. IV TO R FA, NS @ 75 ML/HR, PATENT, NO REDNESS OR EDEMA NOTED. 2L 02 VIA NC. BREATHING EVEN AND UNLABORED. ABD SOFT, DISTENDED, NONTENDER. T TUBE WITH GREEN DRAINAGE, MELODIE DRAIN, COMPRESSED WITH BLOODY DRAINAGE, BILIARY DRAIN WITH GREEN DRAINAGE. DRSG TO RUQ, C/D/I. VITALS STABLE THIS AM, TOOK MEDS WITHOUT DIFFICULTY. ASSISTED PT UP TO USE URINAL, 600 CC OUTPUT OF DARK YELLOW CLEAR URINE. NO FURTHER CONCERNS AT THIS TIME. FALL PRECAUTIONS IN PLACE. YELLOW GOWN ON, NON SKID SOCKS ON. SR UP X 3. BED LOWERED AND LOCKED, CL IN REACH. WILL CTM.
--- NOTE | 2019-02-08 09:24 | NUR ---
I have reviewed this patient and I concur with the Shift Assessment completed by the Licensed Practical Nurse today this shift.
[2019-02-08 12:38] VITALS: BP 111/59
--- NOTE | 2019-02-08 14:57 | NUR ---
DRAINS LABELED, BILIARY DRAIN LABELED #1, MELODIE LABELED #2, T TUBE LABELED #3
[2019-02-08 16:30] VITALS: BP 110/62
--- NOTE | 2019-02-08 19:47 | NUR ---
PATIENT SITTING UP IN BED EATING SOUP. PATIENT COMPLAINS OF PAIN AT DRAIN SITE. MEDICATION TO BE GIVEN FOR PAIN. WILL CONTINUE TO MONITOR. NO DISTRESS NOTED.
[2019-02-08 20:00] VITALS: BP 124/66
[2019-02-09] VITALS: BP 101/63
--- NOTE | 2019-02-09 02:29 | NUR ---
PATIENT LAYING IN BED, EYES CLOSED, CHEST RISING AND FALLING. NO DISTRESS NOTED.
[2019-02-09 07:15] LABS: BASOPHILS 0.3 % (0-2); EOSINOPHILS 1.4 % (0-7); HEMOGLOBIN 8.9 g/dL (13.5-17.5); IMMATURE GRANULOCYTES 0.5 % (0-5); LYMPHOCYTES 19.9 % (15-50); MCH 30.6 pg (26.0-34.0); MCV 92.8 fL (80.0-100.0); MEAN PLATELET VOLUME 9.2 fL (7.4-10.4); MONOCYTES 9.4 % (2-11); NEUTROPHILS 68.5 % (40-80); PLATELET COUNT 349 10x3/uL (130-400); RBC 2.91 10x6/uL (4.20-6.10); RDW 13.4 % (11.5-14.5)
[2019-02-09 07:17] LABS: WBC 7.8 10x3/uL (4.8-10.8)
--- NOTE | 2019-02-09 07:28 | NUR ---
PT RESTING QUIETLY IN BED. NO ACUTE DISTRESS NOTED. PT REPORTS PAIN 9/10 AT THIS TIME TO MID ABDOMEN AND LOWER BACK. INFORMED PT PAIN MEDICATIONS TO BE ADMINISTERED PER MD ORDERS. PT VOICES UNDERSTANDING. O2 @ 2L NC. IV TO RIGHT FOREARM WITH NS @ 75ML/HR, INFUSING VIA PUMP. SITE WITHOUT REDNESS OR EDEMA. BILIARY, MELODIE DRAINS AND T TUBE ALL INTACT AND DRAINING. PT DENIES FURTHER NEEDS AT THIS TIME. CL WITHIN REACH. ENCOURAGED TO CALL WITH NEEDS. CONTINUE POC
[2019-02-09 07:36] VITALS: BP 106/62
[2019-02-09 07:49] LABS: ALBUMIN 1.7 g/dL (3.4-5.0); ALKALINE PHOSPHATASE 65 U/L (46-116); ALT (SGPT) 31 U/L (10-68); BILIRUBIN - TOTAL 0.67 mg/dL (0.2-1.3); CALC OSMOLALITY 275 mosm/kg (275-300); CARBON DIOXIDE 24.4 mmol/L (21.0-32.0); CHLORIDE - SERUM 108 mmol/L (98-107); CREATININE - SERUM 0.7 mg/dL (0.6-1.3); GLUCOSE 85 mg/dL (74-106); MAGNESIUM - SERUM 2.3 mg/dL (1.8-2.4); SODIUM 140 mmol/L (136-145); eGFR NON AFRICAN AMERICAN > 90 mL/min (90-120)
[2019-02-09 08:02] LABS: UREA NITROGEN 7 mg/dL (7-18)
--- NOTE | 2019-02-09 09:45 | NUR ---
ASSISTED PT FROM BR TO BED. PT HAD A MODERATE SIZE FORMED BM, PALE IN COLOR.
[2019-02-09 11:24] VITALS: BP 111/67
--- NOTE | 2019-02-09 11:25 | NUR ---
PT RESTING IN BED. REQUESTING THAT HIS T-TUBE BE DRAINED. NO ACUTE DISTRESS. PT DENIES PAIN AT THIS TIME. CL WITHIN REACH. ENCOURAGED TO CALL WITH NEEDS. WILL CONTINUE TO MONITOR.
[2019-02-09] MEDS ORDERED: HYDROCODON-ACE1 EAC7 PO (14:15)
[2019-02-09 15:39] VITALS: BP 121/61
--- NOTE | 2019-02-09 15:50 | MORECARE ---
CASE MANAGEMENT DISCHARGE SUMMARY PATIENT: LIDIA GOFF UNIT: [id number] ADM DATE: 01/24/19 AGE: 63 : 51 SEX: M ROOM/BED: D.6886 AUTHOR: DILMA,DOC PHYSICIAN: REFERRING PHYSICIAN: GARY BECKER MD DATE OF SERVICE: 02/09/19 Discharge Plan Patient Name: LIDIA GOFF Facility: [facility]:[place] : 1955 Planned Disposition: Home with Home Health Anticipated Discharge Date: 02/09/19 Discharge Date: Expected LOS: 16 Initial Reviewer: [id number] Initial Review Date: 01/29/2019 Generated: 02/09/19 4:50 pm DCP- Discharge Planning Updated by [id number]: Perri Lugo on 02/01/19 10:[address] ON 01/31 DR KIRK CAME TO ME TO TALK TO ME ABOUT GETTING AN APPOINTMENT FOR THE PATIENT WITH DR HERRERA, BECAUSE HE FELT HE WOULD BE ABLE TO HELP THE PATIENT. I WAS GIVEN THE NAME OF LINN PIZANO TO CONTACT AND A FAX NUMBER OF [phone] AND A PHONE NUMBER OF [phone]. HE ASKED ME TO CALL AND FIND OUT WHAT ALL PAPERWORK THAT SHE WOULD NEED FAXED AND SOON WE HAD AN APPOINTMENT FOR HIM, THEN HE WOULD DISCHARGE THE PATIENT HOME WITH HOME HEALTH FOR MELODIE DRAIN AND T-TUBE CARE WELL PHYSICAL THERAPY. @1257 I PLACED A CALL TO LINN PIZANO AT THE NUMBER ABOVE. THE PHONE DOES NOT RING, IT JUST WENT STRAIGHT TO VOICEMAIL. I LEFT A MESSAGE WITHOUT PATIENT NAME SECONDARY TO THE OUTGOING MESSAGE NOT SAYING IT WAS CONFIDENTIAL. @ 1512 I CALLED AND LEFT A SECOND MESSAGE. NO RETURN CALL WAS RECEIVED BY THE TIME I LEFT. TODAY, @0956 I TRIED TO REACH HER AT THE NUMBER ABOVE AGAIN AND IT WENT STRAIGHT TO VOICEMAIL. I DID NOT LEAVE A VOICEMAIL AGAIN. I LOOKED UP CONTACT INFORMATION ON THE INTERNET AND THERE WERE 2 NUMBERS. THE FIRST ONE WAS [phone] (WHICH WHEN CALLED I RECEIVED A MESSAGE THAT SAID THE NUMBER I CALLED WAS UNAVAILABLE), THE SECOND NUMBER, , WAS AN PHP WORDPRESS DEVELOPER FOR [employer]??. I EXPLAINED THAT I WAS TRYING TO REACH LINN PIZANO WITH DR HERRERA AND SHE SENT ME TO THE GI [facility]INIC AT [phone]. I CALLED THE GI CLINIC AND WAS TOLD THAT DR HERRERA MAY BE A GI DOCTOR, BUT HE WORKED OUT OF THE [facility]. SHE DID NOT GIVE ME THE PHONE NUMBER, BUT TRANSFERRED ME THERE. BING ANSWERED THE PHONE, AND I TALKED TO HERE ABOUT WHAT I WAS TRYING TO DO, AND SHE TRANSFERRED ME AGAIN TO ANOTHER PERSON, I AM NOT SURE WHAT THE NAME OF THIS PERSON WAS, BUT SHE LISTENED TO WHAT I WAS TRYING TO DO, AND RECOMMENED THAT I CALL [phone] WITH THE GI CLINIC. I THEN EXPLAINED THAT I HAD ALREADY TALKED TO SOMEONE THERE THAT SAID I WOULD HAVE TO TALK TO THE MEDICAL ONCOLOGY AND EXPLAINED HOW MAY ATTEMPTS I HAVE MADE TO TALK TO SOMEONE, AND I EXPLAINED THAT I WOULD JUST CALL THE NUMBER BACK THAT I WAS GIVEN AND THEN LET DR KIRK KNOW WHAT ATTEMPTS WERE MADE TO CONTACT LINN PIZANO PER HIS REQUEST AND THAT I WAS JUST TRANSFERRED IN [place] AND I WAS UNSUCCESSFUL WITH MAKING THE APPOINTMENT. AT THIS TIME, SHE ASKED ME TO WAIT A MINUTE. SHE THEN STATED THAT SHE DOES NOT HAVE A DIRECT NUMBER FOR LINN, BUT SHE HAS HER EMAIL AND WOULD SEND HER A EMAIL STATING WHAT WE TALKED ABOUT AND SHE STATED THAT SHE HAS THE NUMBER [phone] THAT IS ATTACHED TO HER EMAIL. SHE TOOK MY CONTACT INFORMATION AND STATED THAT I SHOULD ALSO SEND HER AN EMAIL. I THANKED HER FOR HER TIME AND WE DISCONEECED AT [phone]. @ 1640 I RECEIVED A CALL FROM LINN (CALLER ID SHOWED [phone]) SHE STARTED THE CONVERSATION BY RUDELY ASKING EXACTLY WHAT NUMBER I WAS GIVEN [facility] AND SHE WASN'T RETURNING. I TOLD HER THE NUMBER WAS [phone]. SHE STATED THAT THAT NUMBER IS NO LONGER USED AND NEEDED TO BE...(SHE NEVER FINISHED THE SENTENCE). SHE STATED THAT DR HERRERA HAD NOT DISCUSSED ANY PATIENT WITH HER AND THAT TO START THE PROCESS I WOULD NEED TO FAX HER A DEMOGRAPHIC SHEET WITH INSURANCE INFORMATION, THE ADMISSION H&P, THE MED LIST (NOT THE ONE THAT HAS THE EXACT TIME OF MEDS BEING ADMINISTERED, JUST A LIST OF MEDS), ALL CT, MRI, AND ENDOSCOPY REPORT. SHE GAVE THE FAX NUMBER OF: [phone]. SHE STATED THAT IT COULD BE A FEW WEEKS OUT, AND I ASKED HOW LONG WOULD IT TAKE TO GET THE APPOINTMENT, DR KIRK HAS EXPRESSED THAT HE WILL DISCHARGE HOME WITH THE MELODIE DRAIN AND T-TUBE, BUT HE WON'T UNTIL WE HAVE A CONFIRMED APPOINTMENT. SHE STATED AFTER SHE GETS THE INFORMATION, SHE WILL HAVE SCHEDULING CALL WITH AN APPOINTMENT. I WILL FAX THE INFORMATION. DCP- Discharge Planning Updated by [id number]: Robb Vargas on 01/31/19 2:[address] Patient Name: LIDIA GOFF Encounter No: [id number] : 1955 Primary Insurance: MEDICARE A & B Anticipated DC Date: 02-01-2019 Planned Disposition: Home with Home Health External Planned Provider: [employer] [facility] DCP follow-up note: CM RECEIVED ORDER FOR HOME HEALTH. CM MET WITH PT IN ROOM TO DISCUSS DISCHARGE NEEDS AND PLANNING. CM DISCUSSED AVAILABILITY OF HOME HEALTH, REHAB SERVICES AND MEDICAL EQUIPMENT. PT WILL ACCEPT HOME HEALTH, PROVIDER LISTING GIVEN, PT SIGNED CONSENT WITH NO PROVIDER PREFERENCE. DAUGHTER TO TRANSPORT HOME AT DISCHARGE. IMPORTANT MESSAGE FROM MEDICARE PROVIDED AND EXPLAINED. CM CALLED [facility], , SPOKE TO JASON, REFERRAL PROVIDED, PT PLACED ON SCHEDULE FOR TUESDAY. CM FAXED REFERRAL INFORMATION TO [employer] [facility] AT [phone]. FOR DISCHARGE, FAX DISCHARGE INFORMATION TO [employer] AT [phone]. CALL AND NOTIFY [employer] [facility] OF DISCHARGE AT [phone]. Robb Vargas, CASE MANAGEMENT DCP- Discharge Planning Updated by [id number]: Robb Vargas on 01/29/19 1:[address] Patient Name: LIDIA GOFF Admission Status: ER Accout number: [id number] Admission Date: 01-24-2019 : 1955 Admission Diagnosis: Attending: GARY MANCILLA Current LOS: 5 Anticipated DC Date: 01-30-2019 Planned Disposition: Home Primary Insurance: MEDICARE A & B Discharge Planning Comments: CM MET WITH PT IN ROOM TO DISCUSS DISCHARGE PLANNING AND NEEDS. PT REPORTS LIVING AT HOME INDEPENDENTLY WITH HIS ADULT DAUGHTER AND HER CHILDREN. PT HAS NO MEDICAL EQUIPMENT AND NO OUTSIDE SERVICES ASSISTING IN THE HOME. CM DISCUSSED AVAILABILITY OF HOME HEALTH, REHAB SERVICES AND MEDICAL EQUIPMENT. PT DENIES DISCHARGE NEEDS STATING HE IS JUST HAVING HIS GALLBLADDER OUT. PT REPORTS FAMILY WILL PICK HIM UP FOR DISCHARGE HOME. PT REPORTS HAVING RECEIVED BAD CARE. CM PROVIDED PT WITH [facility] AND CM CONTACT NUMBERS, ENCOURAGED PT TO SPEAK TO [facility] REGARDING CARE COMPLAINTS. PT PLANS TO DISCHARGE HOME WITH FAMILY, DENIES DISCHARGE NEEDS. CM TO FOLLOW AND ASSIST IF NEEDED. Museum Librarian: Robb Vargas DCPIA - Discharge Planning Initial Assessment Updated by MARIANNE: Robb Vargas on 01/29/19 2:17 pm * Is the patient Alert and Oriented? Yes * How many steps to enter\exit or inside your home? NONE * PCP DR RODRIGUEZ * Pharmacy [facility] * Preadmission Environment Home with Family * ADLs Independent * Equipment None * Other Equipment NO MEDICAL EQUIPMENT PROVIDER PREFERENCE * List name and contact numbers for known caregivers / representatives who currently or will assist patient after discharge: ELEONORA COLINDRES, * Verbal permission to speak to the caregivers and representatives has been obtained from the patient. N/A * Community resources currently utilized None * Please name any agencies selected above. NONE * Additional services required to return to the preadmission environment? No * Can the patient safely return to the preadmission environment? Yes * Has this patient been hospitalized within the prior 30 days at any hospital? No Coverage Notice Reviewer: [id number] Vargas Notice Issued Date-Time: 01/31/2019 14:30 Notice Type: Patient Choice Letter Notice Delivered To: Patient Relationship to Patient: Electric Motorman Name: Delivery Method: HAND - Hand Delivered Pilar Days: Prior Verbal Notification: Recipient Understood Notice: Yes Recipient Signature: Yes Med Rec Note Co-signed by Attending: Coverage Notice Comment: NO HOME HELATH PREFERENCE Reviewer: [id number] Marcelino Vargas Notice Issued Date-Time: 01/31/2019 14:30 Notice Type: IM Discharge Notice Notice Delivered To: Patient Relationship to Patient: Electric Motorman Name: Delivery Method: HAND - Hand Delivered Pilar Days: Prior Verbal Notification: Recipient Understood Notice: Yes Recipient Signature: Yes Med Rec Note Co-signed by Attending: Coverage Notice Comment: Last DP export: 02/01/19 10:10 am Patient Name: LIDIA GOFF Page [id number] at 1550 All edits/amendments must be made on the electronic document DICTATION DATE: 02/09/191548 SUPERVISOR METAL FURNITURE FABRICATION: ONEL 02/09/191548 RPT#: [id number] DC DATE: STATUS: ADM IN [facility] [address] [place] [address] END OF REPORT
--- NOTE | 2019-02-09 16:01 | MORECARE ---
CASE MANAGEMENT DISCHARGE SUMMARY PATIENT: LIDIA GOFF UNIT: [id number] ADM DATE: 01/24/19 AGE: 63 : 51 SEX: M ROOM/BED: D.8338 AUTHOR: DILMA,DOC PHYSICIAN: REFERRING PHYSICIAN: GARY BECKER MD DATE OF SERVICE: 02/09/19 Discharge Plan Patient Name: LIDIA GOFF Facility: [facility]:[place] : 1955 Planned Disposition: Home with Home Health Anticipated Discharge Date: 02/09/19 Discharge Date: Expected LOS: 16 Initial Reviewer: [id number] Initial Review Date: 01/29/2019 Generated: 02/09/19 5:00 pm Comments DCP- Discharge Planning Updated by [id number]: Robb Vargas on 02/09/19 2:[address] Patient Name: LIDIA GOFF Encounter No: [id number] : 1955 Primary Insurance: MEDICARE A & B Anticipated DC Date: 02-09-2019 Planned Disposition: Home with Home Health External Planned Provider: [employer] [facility] DCP follow-up note: CM RECEIVED DISCHARGE, SPOKE TO PT IN ROOM WHO IS IN AGREEMENT WITH DISCHARGE TODAY TO HOME WITH [employer] [facility]. IMPORTANT MESSAGE FROM MEDICARE PROVIDED AND EXPLAINED, PT CALLING FAMILY TO PICK HIM UP LATER TODAY. CM FAXED DISCHARGE INFORMATION TO [employer] AT [phone]. CM CALLED JASON OF [employer], NOTIFIED OF DISCHARGE AT [phone]. HOME HEALTH TO ADMIT TUESDAY. PT AND BIOINFORMATICS PROGRAMMER NURSE NOTIFIED. Robb Vargas, CASE MANAGEMENT DCP- Discharge Planning Updated by [id number]: Perri Lugo on 02/01/19 10:[address] ON 01/31 DR KIRK CAME TO ME TO TALK TO ME ABOUT GETTING AN APPOINTMENT FOR THE PATIENT WITH DR HERRERA, BECAUSE HE FELT HE WOULD BE ABLE TO HELP THE PATIENT. I WAS GIVEN THE NAME OF LINN PIZANO TO CONTACT AND A FAX NUMBER OF [phone] AND A PHONE NUMBER OF [phone]. HE ASKED ME TO CALL AND FIND OUT WHAT ALL PAPERWORK THAT SHE WOULD NEED FAXED AND SOON WE HAD AN APPOINTMENT FOR HIM, THEN HE WOULD DISCHARGE THE PATIENT HOME WITH HOME HEALTH FOR MELODIE DRAIN AND T-TUBE CARE WELL PHYSICAL THERAPY. @1258 I PLACED A CALL TO LINN PIZANO AT THE NUMBER ABOVE. THE PHONE DOES NOT RING, IT JUST WENT STRAIGHT TO VOICEMAIL. I LEFT A MESSAGE WITHOUT PATIENT NAME SECONDARY TO THE OUTGOING MESSAGE NOT SAYING IT WAS CONFIDENTIAL. @ 1516 I CALLED AND LEFT A SECOND MESSAGE. NO RETURN CALL WAS RECEIVED BY THE TIME I LEFT. TODAY, @0998 I TRIED TO REACH HER AT THE NUMBER ABOVE AGAIN AND IT WENT STRAIGHT TO VOICEMAIL. I DID NOT LEAVE A VOICEMAIL AGAIN. I LOOKED UP CONTACT INFORMATION ON THE INTERNET AND THERE WERE 2 NUMBERS. THE FIRST ONE WAS [phone] (WHICH WHEN CALLED I RECEIVED A MESSAGE THAT SAID THE NUMBER I CALLED WAS UNAVAILABLE), THE SECOND NUMBER, , WAS AN PHARMACY OPERATIONS SPECIALIST FOR [employer]??. I EXPLAINED THAT I WAS TRYING TO REACH LINN PIZANO WITH DR HERRERA AND SHE SENT ME TO THE GI CLINIC AT [phone]. I CALLED THE GI CLINIC AND WAS TOLD THAT DR HERRERA MAY BE A GI DOCTOR, BUT HE WORKED OUT OF THE [facility]. SHE DID NOT GIVE ME THE PHONE NUMBER, BUT TRANSFERRED ME THERE. BING ANSWERED THE PHONE, AND I TALKED TO HERE ABOUT WHAT I WAS TRYING TO DO, AND SHE TRANSFERRED ME AGAIN TO ANOTHER PERSON, I AM NOT SURE WHAT THE NAME OF THIS PERSON WAS, BUT SHE LISTENED TO WHAT I WAS TRYING TO DO, AND RECOMMENED THAT I CALL [phone] WITH THE GI CLINIC. I THEN EXPLAINED THAT I HAD ALREADY TALKED TO SOMEONE THERE THAT SAID I WOULD HAVE TO TALK TO THE MEDICAL ONCOLOGY AND EXPLAINED HOW MAY ATTEMPTS I HAVE MADE TO TALK TO SOMEONE, AND I EXPLAINED THAT I WOULD JUST CALL THE NUMBER BACK THAT I WAS GIVEN AND THEN LET DR KIRK KNOW WHAT ATTEMPTS WERE MADE TO CONTACT LINN PIZANO PER HIS REQUEST AND THAT I WAS JUST TRANSFERRED IN [place]CL[place] AND I WAS UNSUCCESSFUL WITH MAKING THE APPOINTMENT. AT THIS TIME, SHE ASKED ME TO WAIT A MINUTE. SHE THEN STATED THAT SHE DOES NOT HAVE A DIRECT NUMBER FOR LINN, BUT SHE HAS HER EMAIL AND WOULD SEND HER A EMAIL STATING WHAT WE TALKED ABOUT AND SHE STATED THAT SHE HAS THE NUMBER [phone] THAT IS ATTACHED TO HER EMAIL. SHE TOOK MY CONTACT INFORMATION AND STATED THAT I SHOULD ALSO SEND HER AN EMAIL. I THANKED HER FOR HER TIME AND WE DISCONEECED AT 8899. @ 3915 I RECEIVED A CALL FROM LINN (CALLER ID SHOWED [phone]) SHE STARTED THE CONVERSATION BY RUDELY ASKING EXACTLY WHAT NUMBER I WAS GIVEN THAT WAS GOING TO [employer]ICEMAIL AND SHE WASN'T RETURNING. I TOLD HER THE NUMBER WAS [phone]. SHE STATED THAT THAT NUMBER IS NO LONGER USED AND NEEDED TO BE...(SHE NEVER FINISHED THE SENTENCE). SHE STATED THAT DR HERRERA HAD NOT DISCUSSED ANY PATIENT WITH HER AND THAT TO START THE PROCESS I WOULD NEED TO FAX HER A DEMOGRAPHIC SHEET WITH INSURANCE INFORMATION, THE ADMISSION H&P, THE MED LIST (NOT THE ONE THAT HAS THE EXACT TIME OF MEDS BEING ADMINISTERED, JUST A LIST OF MEDS), ALL CT, MRI, AND ENDOSCOPY REPORT. SHE GAVE THE FAX NUMBER OF: [phone]. SHE STATED THAT IT COULD BE A FEW WEEKS OUT, AND I ASKED HOW LONG WOULD IT TAKE TO GET THE APPOINTMENT, DR KIRK HAS EXPRESSED THAT HE WILL DISCHARGE HOME WITH THE MELODIE DRAIN AND T-TUBE, BUT HE WON'T UNTIL WE HAVE A CONFIRMED APPOINTMENT. SHE STATED AFTER SHE GETS THE INFORMATION, SHE WILL HAVE SCHEDULING CALL WITH AN APPOINTMENT. I WILL FAX THE INFORMATION. DCP- Discharge Planning Updated by [id number]: Robb Vargas on 01/31/19 2:[address] Patient Name: LIDIA GOFF Encounter No: [id number] : 1955 Primary Insurance: MEDICARE A & B Anticipated DC Date: 02-01-2019 Planned Disposition: Home with Home Health External [facility] follow-up note: CM RECEIVED ORDER FOR HOME HEALTH. CM MET WITH PT IN ROOM TO DISCUSS DISCHARGE NEEDS AND PLANNING. CM DISCUSSED AVAILABILITY OF HOME HEALTH, REHAB SERVICES AND MEDICAL EQUIPMENT. PT WILL ACCEPT HOME HEALTH, PROVIDER LISTING GIVEN, PT SIGNED CONSENT WITH NO PROVIDER PREFERENCE. DAUGHTER TO TRANSPORT HOME AT DISCHARGE. IMPORTANT MESSAGE FROM MEDICARE PROVIDED AND EXPLAINED. CM CALLED [facility], , SPOKE TO JASON, REFERRAL PROVIDED, PT PLACED ON SCHEDULE FOR TUESDAY. CM FAXED REFERRAL INFORMATION TO [employer] [facility] AT [phone]. FOR DISCHARGE, FAX DISCHARGE INFORMATION TO [facility] AT [phone]. CALL AND NOTIFY [facility] OF DISCHARGE AT [phone]. Robb Vargas, CASE MANAGEMENT DCP- Discharge Planning Updated by [id number]: Robb Vargas on 01/29/19 1:[address] Patient Name: LIDIA GOFF Admission Status: ER Accout number: [id number] Admission Date: 01-24-2019 : 1955 Admission Diagnosis: Attending: GARY MANCILLA Current LOS: 5 Anticipated DC Date: 01-30-2019 Planned Disposition: Home Primary Insurance: MEDICARE A & B Discharge Planning Comments: CM MET WITH PT IN ROOM TO DISCUSS DISCHARGE PLANNING AND NEEDS. PT REPORTS LIVING AT HOME INDEPENDENTLY WITH HIS ADULT DAUGHTER AND HER CHILDREN. PT HAS NO MEDICAL EQUIPMENT AND NO OUTSIDE SERVICES ASSISTING IN THE HOME. CM DISCUSSED AVAILABILITY OF HOME HEALTH, REHAB SERVICES AND MEDICAL EQUIPMENT. PT DENIES DISCHARGE NEEDS STATING HE IS JUST HAVING HIS GALLBLADDER OUT. PT REPORTS FAMILY WILL PICK HIM UP FOR DISCHARGE HOME. PT REPORTS HAVING RECEIVED BAD CARE. CM PROVIDED PT WITH [facility] AND CM CONTACT NUMBERS, ENCOURAGED PT TO SPEAK TO [facility] REGARDING CARE COMPLAINTS. PT PLANS TO DISCHARGE HOME WITH FAMILY, DENIES DISCHARGE NEEDS. CM TO FOLLOW AND ASSIST IF NEEDED. Drafter Automotive Design Layout: Robb Vargas DCPIA - Discharge Planning Initial Assessment Updated by [id number]: Robb Vargas on 01/29/19 2:17 pm * Is the patient Alert and Oriented? Yes * How many steps to enter\exit or inside your home? NONE * PCP DR RODRIGUEZ * Pharmacy [facility] * Preadmission Environment Home with Family * ADLs Independent * Equipment None * Other Equipment NO MEDICAL EQUIPMENT PROVIDER PREFERENCE * List name and contact numbers for known caregivers / representatives who currently or will assist patient after discharge: ELEONORA COLINDRES, * Verbal permission to speak to the caregivers and representatives has been obtained from the patient. N/A * Community resources currently utilized None * Please name any agencies selected above. NONE * Additional services required to return to the preadmission environment? No * Can the patient safely return to the preadmission environment? Yes * Has this patient been hospitalized within the prior 30 days at any hospital? No Coverage Notice Reviewer: [id number] Marcelino Vargas Notice Issued Date-Time: 01/31/2019 14:30 Notice Type: Patient Choice Letter Notice Delivered To: Patient Relationship to Patient: Clinic Clerk Name: Delivery Method: HAND - Hand Delivered Pilar Days: Prior Verbal Notification: Recipient Understood Notice: Yes Recipient Signature: Yes Med Rec Note Co-signed by Attending: Coverage Notice Comment: NO HOME HELATH PREFERENCE Reviewer: [id number] Marcelino Vargas Notice Issued Date-Time: 01/31/2019 14:30 Notice Type: IM Discharge Notice Notice Delivered To: Patient Relationship to Patient: Clinic Clerk Name: Delivery Method: HAND - Hand Delivered Pilar Days: Prior Verbal Notification: Recipient Understood Notice: Yes Recipient Signature: Yes Med Rec Note Co-signed by Attending: Coverage Notice Comment: Last DP export: 02/09/19 2:50 p Patient Name: LIDIA GOFF Page 45816 at 1601 All edits/amendments must be made on the electronic document DICTATION DATE: 02/09/191599 MORTGAGE CLOSER: ONEL 02/09/19 1600 RPT#: [id number] DC DATE: STATUS: ADM IN [facility] [address] [place] [address] END OF REPORT
--- NOTE | 2019-02-09 22:02 | NUR ---
PT WAS DISCHARGED. PT'S PIV REMOVED WIHT MINN BLEEDING NOTED. PT STATED THAT HE UNDERSTOOD DISCHARGE INSTRUCTIONS. AND SIGNED ALL PAPERWORK. TOOK PT OUT TO MEET HIS DAUGHTER VIA AMBULANCE
== END 2019-02-09 22:41 | disposition home health service (06) | DRG 414 ==
LOC: D.ER 18:02 → D.M2 23:42 → D.SDCHOLD 01-25 14:07 → D.M2 01-25 14:09
PROVIDERS: Emergency Medicine; General Practice; Internal Medicine Gastroenterology; Internal Medicine Nephrology; Radiology Diagnostic Radiology; Surgery; ADMIT Family Medicine Adult Medicine; ATTEND Family Medicine Adult Medicine
PROC: 0FC98ZZ Extirpation of Matter from Common Bile Duct, Via Natural or Artificial Opening Endoscopic (ICD-10-PCS; 2019-01-26)
PROC: BF101ZZ Fluoroscopy of Bile Ducts using Low Osmolar Contrast (ICD-10-PCS; 2019-01-29)
PROC: 0D9670Z Drainage of Stomach with Drainage Device, Via Natural or Artificial Opening (ICD-10-PCS; 2019-01-29)
PROC: 0FT40ZZ Resection of Gallbladder, Open Approach (ICD-10-PCS; principal; 2019-01-29 12:15)
PROC: 0F9930Z Drainage of Common Bile Duct with Drainage Device, Percutaneous Approach (ICD-10-PCS; 2019-02-01)
PROC: 0F793ZZ Dilation of Common Bile Duct, Percutaneous Approach (ICD-10-PCS; 2019-02-01)
PROC: BF101ZZ Fluoroscopy of Bile Ducts using Low Osmolar Contrast (ICD-10-PCS; 2019-02-05)
PROC: 0FC93ZZ Extirpation of Matter from Common Bile Duct, Percutaneous Approach (ICD-10-PCS; 2019-02-07)
PROC: 0F9930Z Drainage of Common Bile Duct with Drainage Device, Percutaneous Approach (ICD-10-PCS; 2019-02-07)
DX: K80.32 Calculus of bile duct with acute cholangitis without obstruction (principal); E43 Unspecified severe protein-calorie malnutrition; F17.213 Nicotine dependence, cigarettes, with withdrawal; R17 Unspecified jaundice; I97.42 Intraoperative hemorrhage and hematoma of a circulatory system organ or structure complicating other procedure; R94.5 Abnormal results of liver function studies; E80.6 Other disorders of bilirubin metabolism; J44.9 Chronic obstructive pulmonary disease, unspecified; E11.65 Type 2 diabetes mellitus with hyperglycemia; K21.0 Gastro-esophageal reflux disease with esophagitis; M19.90 Unspecified osteoarthritis, unspecified site; D50.9 Iron deficiency anemia, unspecified; Y83.9 Surgical procedure, unspecified as the cause of abnormal reaction of the patient, or of later complication, without mention of misadventure at the time of the procedure; Z68.25 Body mass index [BMI] 25.0-25.9, adult

== ENCOUNTER → 2019-02-15 13:10 | Outpatient (CLI) | payer MEDICARE, OTHER ==
[2019-01-27 09:44] VITALS: BMI 25.0
[~2019-02-15 13:10] MED LIST: ANORO ELLIPTA1 EACH INH; ELAVIL25 MG PO; FLUTICASONE PRO16 GM NASAL; GABAPENTIN100 MG PO; GLUCOPHAGE500 MG PO; HYDROCODON-ACE1 EAC7 PO; METAMUCIL PACKE1 PKT PO; PROTONIX20 MG; PROTONIX40 MG PO; SEROQUEL200 MG PO; SEROQUEL50 MG PO
[2019-02-15 13:47] LABS: ALBUMIN 2.6 g/dL (3.4-5.0); ALKALINE PHOSPHATASE 115 U/L (46-116); ALT (SGPT) 44 U/L (10-68); AMYLASE - SERUM 47 U/L (25-115); BILIRUBIN - TOTAL 0.64 mg/dL (0.2-1.3); CALC OSMOLALITY 273 mosm/kg (275-300); CALCIUM 9.1 mg/dL (8.5-10.1); CARBON DIOXIDE 26.7 mmol/L (21.0-32.0); CHLORIDE - SERUM 102 mmol/L (98-107); CREATININE - SERUM 0.9 mg/dL (0.6-1.3); GLUCOSE 109 mg/dL (74-106); LIPASE 198 U/L (73-393); POTASSIUM - SERUM 4.4 mmol/L (3.5-5.1); SODIUM 136 mmol/L (136-145); UREA NITROGEN 14 mg/dL (7-18); eGFR NON AFRICAN AMERICAN 90 mL/min (90-120)
[2019-02-15 14:04] LABS: BASOPHILS 0.6 % (0-2); EOSINOPHILS 1.6 % (0-7); HEMATOCRIT 31.6 % (42.0-54.0); HEMOGLOBIN 10.2 g/dL (13.5-17.5); IMMATURE GRANULOCYTES 0.6 % (0-5); LYMPHOCYTES 32.4 % (15-50); MCH 30.2 pg (26.0-34.0); MCHC 32.3 g/dL (31.0-37.0); MCV 93.5 fL (80.0-100.0); MEAN PLATELET VOLUME 9.2 fL (7.4-10.4); MONOCYTES 9.2 % (2-11); NEUTROPHILS 55.6 % (40-80); PLATELET COUNT 348 10x3/uL (130-400); RBC 3.38 10x6/uL (4.20-6.10); RDW 13.6 % (11.5-14.5); WBC 8.6 10x3/uL (4.8-10.8)
== END | disposition home or self-care (01) ==
LOC: D.LAB 13:10
PROVIDERS: ATTEND Surgery
DX: P59.9 Neonatal jaundice, unspecified (principal)

== ENCOUNTER 2019-02-23 06:17 | Outpatient (CLI) | payer MEDICARE, OTHER ==
[~2019-02-23] VITALS: Ht 167.6 cm; Wt 66.4 kg
--- NOTE | ~2019-02-23 | HEMODYNAMI ---
PATIENT:LIDIA GOFF MEDICAL RECORD: [id number] : 51 LOCATION:[facility] ADMISSION DATE: 02/23/19 Generatedon:02/23/201910:15 Patient name: LIDIA GOFF Patient #: [id number] SSN: : 1955 Date of study: 02/23/2019 Page: Of Hemodynamic Procedure Report Patient Data Patient Demographics Procedure consent was obtained First Name: LIDIA Gender: Male Last Name: SHELL : 1955 Middle Initial: L Age: 63 year(s) Patient #: [id number] Race: Unknown Additional ID: [id number] Contact details [address]: [address] [place] [address] State: [place] City: [place] Zip code: [address] Past Medical History Allergies Allergen Reaction Date Comments Reported Other allergy 02/01/2019 BACTRIM AND SULFA Admission Admission Data Admission Date: 02/23/2019 Admission Time: 6:17 Procedure Procedure Types Cath Procedure Peripheral Cath Diagnostic Procedure Biliary Procedure Description Procedure Date Procedure Date: 02/23/2019 Procedure Start Time: 9:57 Procedure Staff Name Function Romario Hagen MD Performing Physician José Luis Garcia RT Monitor OK GREGORY RT Scrub Radha Merchant RN Nurse Shy Bean RN Nurse Procedure Data Cath Procedure Fluoroscopy Diagnostic fluoroscopy Total fluoroscopy Time: 0.8 time: 0.8 min min Diagnostic fluoroscopy Total fluoroscopy dose: 56 dose: 56 mGy mGy Contrast Material Contrast Material Type Amount (ml) Isovue 300 15 Procedure Medications Medication Administration Route Dosage Heparin Flush Bag added to field 1 bags (1000units/500ml NS) Lidocaine 1% added to field 20 Hemodynamics Rest Heart Rate: 63 (bpm) Snapshots Pre Cath Intra NCS Post Cath Vital Signs Time Heart Resp SPO2 etCO2 NIBP (mmHg) Rhythm Pain Sedation Rate (ipm) (%) (mmHg) Status Level (bpm) 9:31:04 61 16 99 0 102/56(99) NSR 0 (11) 10(A) , No pain 9:35:59 60 17 98 0 125/68(108) NSR 0 (11) 10(A) , No pain 9:40:05 59 22 99 0 132/112(128) NSR 0 (11) 10(A) , No pain 9:44:19 61 17 98 0 129/76(110) NSR 0 (11) 10(A) , No pain 9:48:31 60 18 99 0 130/75(111) NSR 0 (11) 10(A) , No pain 9:53:30 60 14 99 0 Measuring NSR 0 (11) 10(A) , No pain 9:53:34 60 14 99 0 131/74(109) NSR 0 (11) 10(A) , No pain 9:58:33 61 21 99 0 Measuring NSR 0 (11) 10(A) , No pain 9:59:55 61 17 99 0 122/77(104) NSR 0 (11) 10(A) , No pain 10:04:05 60 18 99 0 129/77(107) NSR 0 (11) 10(A) , No pain 10:08:15 61 17 99 0 134/78(115) NSR 0 (11) 10(A) , No pain 10:12:16 60 19 99 0 125/85(118) NSR 0 (11) 10(A) , No pain Medications Time Medication Route Dose Verified Delivered Reason Notes Effec tiveness by by 9:59:51 Heparin Flush added 1 Romario Doss used for Bag to bags Hieu Hagen MD procedure (1000units/500ml field TATE NS) 10:00:07 Lidocaine 1% added 20ml Romario Doss used for to vial Hieu Hagen MD procedure field TATE Procedure Log Time Note 9:27:48 Radha Merchant RN sent for patient. Start room use. 9:27:59 Time tracking: Regular hours (M-F 7:00 - 5:00) 9:28:09 Plan of Care:Hemodynamics will remain stable., Cardiac rhythm will remain stable., Comfort level will be maintained., Respiratory function will remain adequate., Patient/ family verbilizes understanding of procedure., Procedure tolerated without complication., Recovers from procedure without complications.. 9:29:11 Patient received from Outpatients to IR Alert and oriented. Tansferred to table in Supine position. 9:29:12 Warm blankets applied, and oneida hugger turned on for patient comfort. 9:29:12 Correct patient and procedure confirmed by team. 9:29:14 Signed procedure consent form obtained from patient. 9:29:15 ECG and BP/O2 sat monitors applied to patient. 9:29:16 Full Disclosure recording started 9:29:22 Use device set IR Diagnostic 9:29:24 Bag Decanter (2002S) opened to sterile field. 9:29:24 Sterile Angiographic Pack opened to sterile field. 9:29:25 Tegaderm 4 x 4 ([id number]) opened to sterile field. 9:29:32 Baseline sample Acquired. 9:29:32 Vital chart was started 9:29:33 - 9:29:37 H&P Date Dictated: 02/23/2019 H&P Addendum completed by physician on day of procedure. (MUST COMPLETE FOR ALL OUTPATIENTS). 9:29:38 Pre-procedure instructions explained to patient. 9:29:39 Pre-op teaching completed and patient verbalized understanding. 9:29:40 Family in waiting room. 9:29:42 Patient NPO since Midnight. 9:29:47 Is patient on blood thinner?No 9:29:51 - 9:29:52 ----Pre-sedation anethsthesia assessment.---- 9:29:57 Previous problem with sedation/anesthesia? No ? 9:30:05 Patient diabetic? Yes. 9:30:07 If diabetic: On Metformin? No 9:30:15 Snore? No 9:30:19 Sleep apnea? No 9:30:22 Deviated septum? No 9:30:23 Opens mouth fully? Yes 9:30:24 Sticks out tongue? Yes 9:30:26 Airway obstruction? No ? 9:30:31 Dentures? No ? 9:30:59 IV patent on arrival in right hand with 0.45%NaCl at KVO. 9:31:03 Sharps counted by scrub and verified by R.N. 9:31:03 Alarms reviewed by R. N. 9:31:07 Right Abdomen was prepped with chlora-prep and draped in sterile fashion. 9:56:27 Physician arrived 9:56:28 --------ALL STOP TIME OUT------ :56:29 Final Timeout: patient, procedure, and site verified with staff and physician. All members of the team are in agreement. 9:56:32 Right abdomen site verified by team. 9:56:36 Maximum allowable Isovue 300 dose 300ml. Physician notified. (300ml for normal creatinines. For patients with creatinine of 1.7 or higher multiply weight(kg) x 5 divided by creatinine.) 9:56:57 Sedation plan: Local Anesthetic Medication:Lidocaine 9:57:15 Procedure started. 9:59:51 Heparin Flush Bag (1000units/500ml NS) 1 bags added to field was administered by Romario Hagen MD; used for procedure; 10:00:07 Lidocaine 1% 20ml vial added to field was administered by Romario Hagen MD; used for procedure; 10:09:08 BAG, DRAINAGE EMPTY 600ML W/BHUPINDER ([id number]) opened to sterile field. 10:09:09 STOPCOCK 3-Way Large Bore ([id number]) opened to sterile field. 10:10:16 Procedure ended.(Physican Out) 10:10:22 Fluoroscopy time 00.80 minutes. 10:10:25 Fluoroscopy dose: 56 mGy 10:10:25 Flurop Dose total: 56 10:10:28 Sharps counted by scrub and verified by R.N. 10:10:29 Insertion/operative site no bleeding no hematoma. 10:10:38 Post-op/insertion site Right Abdominal area dressed using a 4 x 4,statlock and Tegaderm. 10:14:11 Post procedure instruction explained to patient.Patient verbalizes understanding. 10:14:12 Procedure and supply charges have been captured, reviewed, submitted an d are correct. 10:14:21 Report given to Outpatients. 10:14:27 Patient transfered to Outpatients with Bed. 10:14:33 Contrast amount:Isovue 300 15ml. 10:15:03 Vital chart was stopped Device Usage Item Name Manufacture Quantity Catalog Hospital Part Current Minimal Lot# / Number Charge Number Stock Stock Serial# Code Bag Decanter Microtek 1 [id number] 5 () Medical Inc. Sterile Cardinal 1 [id number] [id number] 5 Angiographic Health Pack Tegaderm 4 x 3M 1 [id number] [id number] [id number] 5 4 (1626W) BAG, Merit 1 [id number] [id number] 445592 291568 5 DRAINAGE Medical EMPTY 600ML W/BHUPINDER (ULS989) [facility] 1 [id number] [id number] 5 [id number] 3-Way Large Bore ([id number]) Signature Audit [place] Stage Time Signature Unsigned Intra-Procedure 02/23/2019 José Luis 10:14:59 AM Jose RT (R) (CV) Signatures Monitor : José Luis Signature : Jose RT Date : Time : [place] [id number]
[2019-02-23 06:54] LABS: ALBUMIN 2.6 g/dL (3.4-5.0); ALKALINE PHOSPHATASE 141 U/L (46-116); ALT (SGPT) 35 U/L (10-68); BILIRUBIN - TOTAL 0.41 mg/dL (0.2-1.3); CALC OSMOLALITY 279 mosm/kg (275-300); CARBON DIOXIDE 25.5 mmol/L (21.0-32.0); CHLORIDE - SERUM 107 mmol/L (98-107); CREATININE - SERUM 0.8 mg/dL (0.6-1.3); GLUCOSE 103 mg/dL (74-106); POTASSIUM - SERUM 4.2 mmol/L (3.5-5.1); PROTEIN - SERUM 7.1 g/dL (6.4-8.2); SODIUM 141 mmol/L (136-145); UREA NITROGEN 11 mg/dL (7-18); eGFR NON AFRICAN AMERICAN > 90 mL/min (90-120)
[2019-02-23 07:14] LABS: BASOPHILS 0.4 % (0-2); HEMATOCRIT 31.2 % (42.0-54.0); HEMOGLOBIN 10.2 g/dL (13.5-17.5); IMMATURE GRANULOCYTES 0.9 % (0-5); INR 1.08 (0.85-1.17); LYMPHOCYTES 33.6 % (15-50); MCH 30.4 pg (26.0-34.0); MCHC 32.7 g/dL (31.0-37.0); MCV 93.1 fL (80.0-100.0); MONOCYTES 8.6 % (2-11); NEUTROPHILS 52.5 % (40-80); PLATELET COUNT 281 10x3/uL (130-400); PROTIME 13.5 SECONDS (11.6-15.0); RBC 3.35 10x6/uL (4.20-6.10); WBC 7.9 10x3/uL (4.8-10.8)
[2019-02-23 07:15] LABS: APTT 33.8 SECONDS (22.8-39.4)
[2019-02-23 08:22] VITALS: Ht 167.6 cm; Wt 66.4 kg
--- NOTE | 2019-02-23 11:15 | NUR ---
1058 IV DC'D. CATHETER INTACT. NO BLEEDING AT SITE. BANDAID APPLIED. PT AND HIS DAUGHTER ARE COMPLAINING THAT THEY HAVE NOT HEARD FROM RADIOLOGIST AFTER PROCEDURE.
--- NOTE | 2019-02-23 11:17 | NUR ---
1110 DR FINN AT PT'S BEDSIDE EXPLAINING FINDINGS AND ANSWERING QUESTIONS.
== END 2019-02-23 11:23 | disposition home or self-care (01) ==
LOC: D.SP 06:17 → D.RAD 09:00 → D.SP 11:23
PROVIDERS: ATTEND General Practice
DX: K80.50 Calculus of bile duct without cholangitis or cholecystitis without obstruction (principal); Z01.812 Encounter for preprocedural laboratory examination

== ENCOUNTER → 2019-03-07 18:44 | Day surgery (SDC) | payer MEDICARE, OTHER ==
[~2019-03-07] VITALS: Ht 167.6 cm; Wt 66.2 kg
--- NOTE | ~2019-03-07 | HEMODYNAMI ---
PATIENT:LIDIA GOFF MEDICAL RECORD: [id number] : 51 LOCATION:[facility] ADMISSION DATE: 03/07/19 Generatedon:03/07/201911:48 Patient name: LIDIA GOFF Patient #: [id number] SSN: : 1955 Date of study: Page: Of Hemodynamic Procedure Report Patient Data Patient Demographics Procedure consent was obtained First Name: LIDIA Gender: Male Last Name: SHELL : 1955 [facility] Initial: L Age: 63 year(s) Patient #: [id number] Race: Unknown Additional ID: [id number] Contact details Address: [address] [place] [address] State: [place] City: [place] Zip code: [address] Past Medical History Allergies Allergen Reaction Date Comments Reported Other allergy 02/01/2019 BACTRIM AND SULFA Admission Admission Data Admission Date: 03/07/2019 Admission Time: 5:55 Procedure Procedure Types Cath Procedure Peripheral Cath Diagnostic Procedure Biliary Cholangio Thru Existing Procedure Description Procedure Staff Name Function Romario Hagen MD Performing Physician Gerardo Tomlin MEDIA MANAGER Additional personnel José Luis Garcia RT Monitor OK GREGORY RT Scrub Radha Merchant RN Nurse Procedure Data Cath Procedure Fluoroscopy Diagnostic fluoroscopy Total fluoroscopy Time: time: 22.1 min 22.1 min Diagnostic fluoroscopy Total fluoroscopy dose: 844 dose: 844 mGy mGy Contrast Material Contrast Material Type Amount (ml) Isovue 300 130 Procedure Medications Medication Administration Route Dosage Heparin Flush Bag added to field 1 bags (1000units/500ml NS) Lidocaine 1% added to field 20 Rocephin I.V. 2 g Hemodynamics Rest Pre Cath Intra NCS Post Cath Medications Time Medication Route Dose Verified Delivered Reason Notes Effect iveness by by 8:55:38 Heparin Flush added 1 Romario Doss used for Bag to bags Hieu Hagen MD procedure (1000units/500ml field NS) 8:55:54 Lidocaine 1% added 20ml Romario Doss used for to vial Hieu Hagen MD procedure field TATE 8:58:14 Rocephin I.V. 2g Romario Garcia used for Mayur Hagen RN procedure Procedure Log Time Note 8:27:51 Radha Merchant RN sent for patient. Start room use. 8:28:21 Gerardo Tomlin CHACHA present and monitoring patient for TIVA. 8:28:31 Time tracking: Regular hours (M-F 7:00 - 5:00) 8:31:01 Plan of Care:Hemodynamics will remain stable., Cardiac rhythm will remain stable., Comfort level will be maintained., Respiratory function will remain adequate., Patient/ family verbilizes understanding of procedure., Procedure tolerated without complication., Recovers from procedure without complications.. 8:31:08 Patient received from Outpatients to IR Alert and oriented. Tansferred to table in Supine position. 8:31:11 Warm blankets applied, and oneida hugger turned on for patient comfort. 8:31:12 Correct patient and procedure confirmed by team. 8:31:14 Signed procedure consent form obtained from patient. 8:31:15 ECG and BP/O2 sat monitors applied to patient. 8:31:18 - 8:31:19 Full Disclosure recording started 8:31:24 H&P Date Dictated: 03/07/2019 H&P Addendum completed by physician on day of procedure. (MUST COMPLETE FOR ALL OUTPATIENTS). 8:31:29 - 8:31:47 SEE ANESTHESIA CASE FOR PRE PROCEDURE ANESTHESIA 8:31:49 - 8:31:58 Right Abdomen was prepped with chlora-prep and draped in sterile fashion. 8:31:59 Alarms reviewed by RKaushik NKaushik 8:32:00 Sharps counted by scrub and verified by R.N. 8:55:38 Heparin Flush Bag (1000units/500ml NS) 1 bags added to field was administered by Romario Hagen MD; used for procedure; 8:55:54 Lidocaine 1% 20ml vial added to field was administered by Romario Hagen MD; used for procedure; 8:58:14 Rocephin 2g I.V. was administered by Radha Merchant RN; used for procedure; 9:03:44 Physician arrived 9:03:45 --------ALL STOP TIME OUT------ 9:03:46 Final Timeout: patient, procedure, and site verified with staff and physician. All members of the team are in agreement. 9:03:50 Right abdomen site verified by team. 9:03:57 Maximum allowable Isovue 300 dose 300ml. Physician notified. (300ml for normal creatinines. For patients with creatinine of 1.7 or higher multiply weight(kg) x 5 divided by creatinine.) 9:04:08 Fire Safety Assessment: A--An alcohol-based skin anteseptic being used preoperatively., C--Open oxygen or nitrous oxide is being used., D--An ESU, laser, or fiber-optic light is being used. 9:04:17 Sedation plan: General Anesthesia Medication:General Anesthesia 9:04:32 Use device set IR Diagnostic 9:04:37 Bag Decanter (2002S) opened to sterile field. 9:04:37 Sterile Angiographic Pack opened to sterile field. 9:13:07 GLIDE WIRE Super Stiff Angled 260cm ([id number]) opened to sterile field. 9:13:18 TORQUE DEVICE PLASTIC .038 ( TD01) opened to sterile field. 9:14:41 GLIDE CATHETER 5FR ANGLED 65cm (CG507) opened to sterile field. 9:16:15 AMPLATZ Super stiff 180cm wire ([id number]) opened to sterile field. 9:21:27 CHOICE PT Extra Support J 300cm guide wire ([id number]) opened to steril e field. 9:23:25 STOPCOCK 3-Way Large Bore ([id number]) opened to sterile field. 11:05:07 Lanie 5Fr OTW embolectomy catheter opened to sterile field. 11:16:15 INFLATOR BasixTOUCH (GS0808) opened to sterile field. 11:17:28 AMPLATZ Super stiff Straight 260cm wire ([id number]) opened to sterile field. 11:20:18 Inflate balloon Inflation number: 1 A Evercross 10 x 40 x 135 Balloon ([id number]) was prepped and advanced across the Undefined1 , then inflated to 10 YINA for 0:14 (min:sec) . 11:24:46 Cook BILIARY 12 FR drainage catheter ([id number]) opened to sterile field. 11:32:38 Procedure ended.(Physican Out) 11:34:51 Fluoroscopy time 22.10 minutes. 11:34:56 Fluoroscopy dose: 844 mGy 11:34:56 Flurop Dose total: 844 11:35:12 Contrast amount:Isovue 300 130ml. 11:35:15 Sharps counted by scrub and verified by R.N. 11:35:16 Insertion/operative site no bleeding no hematoma. 11:35:23 Post-op/insertion site Right Abdominal area dressed using a 4 x 4.STAT;LOCK and Tegaderm. 11:35:59 Post Abdominal area:stable 11:36:02 Post procedure instruction explained to patient.Patient verbalizes understanding. 11:36:09 Procedure and supply charges have been captured, reviewed, submitted an d are correct. 11:44:52 Report given to Recovery Room. 11:45:24 SEE ANESTHESIA NOTE FOR POST PROCEDURE TIVA 11:46:55 Patient transfered to Recovery Room with Bed. Intervention Summary Intervention Notes Time ActionType Lesion and Equipment Used Action# Pressure Duration Attributes 11:20:18 Inflate Undefined1 Evercross 10 x 1 10 00:14 balloon 40 x 135 Balloon ([id number]) Device Usage Item Name Manufacture Quantity Catalog Number Hospital Part Current M inimal Lot# / Charge Number Stock Stock Serial# Code Bag Decanter Microtek 1 [id number] 5 (2002S) Intell[employer] Inc. Sterile Cardinal 1 [id number] 884712 991727 5 Angiographic Health Pack GLIDE WIRE Terumo 1 [id number] 493086 764501 911271 5 Super Stiff Angled 260cm (TE0074) TORQUE DEVICE Calhan 1 TD01 712123 278731 954017 5 PLASTIC .038 ( Scientific TD01) GLIDE CATHETER Terumo 1 CG507 993786 565470 5 5FR ANGLED 65cm (CG507) AMPLATZ Super Calhan 1 [id number] 243869 029184 286357 5 [id number] stiff 180cm Scientific wire ([id number]) CHOICE PT Extra Calhan 1 [id number] 313892 032424 664882 5 [id number] Support J 300cm Scientific guide wire ([id number]) STOPCOCK 3-Way Cook Medical 1 B02493 389826 1633 392785 5 [id number] Large Bore (T04884) Lanie 5Fr OTW Garber 1 [id number] 432842 212156 404856 5 embolectomy Lifesciences catheter INFLATOR Merit 1 PL8580 747842 511672 208254 5 [employer] Medical (WT4268) AMPLATZ Super Calhan 1 [id number] 713511 32844 408583 5 [id number] stiff Straight Scientific 260cm wire ([id number]) Evercross 10 x Medtronic 1 [id number] 156335 049680 578548 5 40 x 135 Balloon ([id number]) Cook BILIARY 12 Cook Medical 1 [id number] 917220 516374 307005 5 [id number] FR drainage catheter (F74443) Signature Audit [place] Stage Time Signature Unsigned Intra-Procedure 03/07/2019 José Luis 11:48:06 AM Shuffield RT (R) (CV) Signatures Monitor : José Luis Signature : Krissyield RT Date : Time : [place] [id number] [place] [id number]
[2019-03-07 06:15] LABS: BASOPHILS 0.4 % (0-2); EOSINOPHILS 5.4 % (0-7); HEMATOCRIT 36.1 % (42.0-54.0); HEMOGLOBIN 11.6 g/dL (13.5-17.5); IMMATURE GRANULOCYTES 0.3 % (0-5); MCH 30.2 pg (26.0-34.0); MCHC 32.1 g/dL (31.0-37.0); MEAN PLATELET VOLUME 9.2 fL (7.4-10.4); MONOCYTES 7.8 % (2-11); NEUTROPHILS 46.1 % (40-80); PLATELET COUNT 241 10x3/uL (130-400); RBC 3.84 10x6/uL (4.20-6.10); RDW 15.2 % (11.5-14.5)
[2019-03-07 06:33] LABS: APTT 31.5 SECONDS (22.8-39.4); INR 1.04 (0.85-1.17); PROTIME 13.1 SECONDS (11.6-15.0)
[2019-03-07 06:46] LABS: ALBUMIN 3.3 g/dL (3.4-5.0); ALKALINE PHOSPHATASE 106 U/L (46-116); ALT (SGPT) 27 U/L (10-68); BILIRUBIN - DIRECT 0.21 mg/dL (0.00-0.30); BILIRUBIN - INDIRECT 0.18 mg/dL (0.00-1.00); BILIRUBIN - TOTAL 0.39 mg/dL (0.2-1.3); CALC OSMOLALITY 284 mosm/kg (275-300); CALCIUM 9.6 mg/dL (8.5-10.1); CARBON DIOXIDE 26.8 mmol/L (21.0-32.0); CHLORIDE - SERUM 106 mmol/L (98-107); CREATININE - SERUM 0.9 mg/dL (0.6-1.3); GLUCOSE 108 mg/dL (74-106); POTASSIUM - SERUM 4.3 mmol/L (3.5-5.1); PROTEIN - SERUM 8.2 g/dL (6.4-8.2); SODIUM 142 mmol/L (136-145); UREA NITROGEN 14 mg/dL (7-18); eGFR NON AFRICAN AMERICAN 90 mL/min (90-120)
[2019-03-07 07:23] VITALS: BP 107/63; Ht 167.6 cm; Wt 66.2 kg
--- NOTE | 2019-03-07 12:16 | NUR ---
TALKED WITH TO INFORM HIM THAT PT OXYGEN SATURATION IS 94% ON 3L NC AND THAT HIS BREATH SOUNDS ARE DIMINSHED ON THE RIGHT SIDE IN ALL LOBES. HE VOICED HE HAD ALREADY LOOKED AT THE CHEST X-RAY AND IT LOOKED FINE HOWEVER HE WAS GOING TO SEE HOW THE PATIENT DOES IN OUTPATIENT BEFORE SENDING HIM HOME. V.O TO SEND PT BACK TO [facility] AT THIS TIME
--- NOTE | 2019-03-07 13:06 | NUR ---
1300 SEE POST PROCEDURE CHECKLIST FOR VITAL SIGN TRENDS
--- NOTE | 2019-03-07 18:27 | NUR ---
[address] [facility] ROOM. O2 PER NC 3LITER. COLOR GOOD. MILDY DROWSY. DRESSING TO BILE TUBE SITE CDI. NO SWELLING NOTED OR BLEEDING. LUNGS CLEAR BILATERALLY.BILE BAG EMPTIED AND GOT 175ML 1245 O2 DECREASED TO 2 LITERS NC 1320 PT MEDICATED FOR PAIN AT INCISION AND ASSITED UP TO BATHROOM TO URINATE AND HAVE A BM. 1350 ASSITED BACK UP TO BATHROOM AND BAG APPEARED NEARLY FULL. EMPTIED 350ML OF YELLOW GREEN BILE. PT DECLINE ANY FOOD JUST COFFEE. IV SITE W/O SWELLING OR REDNESS. 1415 PT ON RA AND MAINTAINING O2 SATS. 1445 DISCHARGE INSTRUCTIONS GIVEN WELL VERBALLY FROM DR FINN. TO FAMILY AND PATIENT 1550 DR FINN INFORMED OF THE AMT EMPTIED FROM BILE BAG. ANOTHER 100ML FROM BAG. PT RECIEVED CUP OF COFFEE AND IS BREATHING WELL. 1600 DR FINN INSTRUCTED JOAO TO CLAMP TUBE AND FAMILY INSTRUCTED ON HOW TO FLUSH LINE. WITH NS. 1700 PT DISCHARGED HOME IN WC 1430 IV REMOVED 1700 PT DC HOME I
[~2019-03-07 18:44] MED LIST changes: +ANTIBIOTIC; +EZFE 200200 MG PO
== END | disposition home or self-care (01) ==
LOC: D.SP 05:55 → D.OPS 05:55 → D.SP 08:00 → D.OPS 17:00
PROVIDERS: ATTEND General Practice
DX: K91.86 Retained cholelithiasis following cholecystectomy (principal)

== ENCOUNTER 2019-03-13 05:53 | Outpatient (CLI) | payer MEDICARE, OTHER ==
--- NOTE | ~2019-03-13 | HEMODYNAMI ---
PATIENT:LIDIA GOFF MEDICAL RECORD: [id number] : 51 LOCATION:[facility] ADMISSION DATE: 03/13/19 Generatedon:03/13/20198:55 Patient name: LIDIA GOFF Patient #: [id number] SSN: : 1955 Date of study: 03/13/2019 Page: Of Hemodynamic Procedure Report Patient Data Patient Demographics Procedure consent was obtained First Name: LIDIA Gender: Male Last Name: SHELL : 1955 Middle Initial: L Age: 63 year(s) Patient #: [id number] Race: Unknown Additional ID: [id number] Contact details Address: [address] [place] [address] State: [place] City: [place] Zip code: [address] Past Medical History Allergies Allergen Reaction Date Comments Reported Other allergy 02/01/2019 BACTRIM AND SULFA Sulfa drugs 03/13/2019 Admission Admission Data Admission Date: 03/13/2019 Admission Time: 5:53 Height (in.): 66 BSA: 1.75 (m2) Height (cm.): 167.64 BMI: 23.56 (kg/m2) Weight (lbs.): 146 Weight (kg.): 66.22 Procedure Procedure Types Cath Procedure Peripheral Cath Diagnostic Procedure Hod Carrier Peripheral Procedures Biliary Cholangio Thru Existing Procedure Description Procedure Date Procedure Date: 03/13/2019 Procedure Start Time: 8:24 Procedure Staff Name Function Romario Hagen MD Performing Physician Ursula Mcguire RT Necktie Maker Radha Merchant RN Nurse Shy Bean RN Nurse OK GREGORY RT Scrub Procedure Data Cath Procedure Fluoroscopy Diagnostic fluoroscopy Total fluoroscopy Time: 2.9 time: 2.9 min min Diagnostic fluoroscopy Total fluoroscopy dose: 121 dose: 121 mGy mGy Contrast Material Contrast Material Type Amount (ml) Isovue 300 55 Procedure Medications Medication Administration Route Dosage Heparin Flush Bag added to field 1 bags (1000units/500ml NS) Lidocaine 1% added to field 20 Versed I.V. 1 mg Fentanyl I.V. 50 mcg Fentanyl I.V. 50 mcg Versed I.V. 1 mg Hemodynamics Rest BSA: 1.75 (m2) O2 Consumption: Estimated: 196.74 (ml/min) O2 Consumption indexed : Estimated:112.42 (ml/min/m) Heart Rate: 59 (bpm) Snapshots Pre Cath Intra NCS Post Cath Vital Signs Time Heart Resp SPO2 etCO2 NIBP (mmHg) Rhythm Pain Sedation Rate (ipm) (%) (mmHg) Status Level (bpm) 8:10:06 58 17 100 12.7 114/68(95) NSR 0 (11) 10(A) , No pain 8:14:12 64 20 94 8.9 122/71(107) NSR 0 (11) 10(A) , No pain 8:18:22 62 18 96 27.7 125/72(104) NSR 0 (11) 10(A) , No pain 8:22:34 66 20 100 22.4 115/65(98) NSR 0 (11) 10(A) , No pain 8:26:42 65 10 100 0 117/67(102) NSR 0 (11) 8(A) , No pain 8:28:20 64 12 100 23.9 120/67(105) NSR 0 (11) 8(A) , No pain 8:32:26 64 9 100 12.7 119/78(105) NSR 0 (11) 10(A) , No pain 8:36:29 68 12 100 0 140/82(113) NSR 0 (11) 10(A) , No pain 8:40:41 70 11 100 14.9 134/78(116) NSR 0 (11) 10(A) , No pain 8:44:55 69 12 100 32.2 121/70(97) NSR 0 (11) 10(A) , No pain 8:49:03 64 15 98 31.4 119/73(106) NSR 0 (11) 10(A) , No pain 8:54:02 100 Measuring NSR 0 (11) 10(A) , No pain 8:54:04 100 Disturbed NSR 0 (11) 10(A) , No pain Medications Time Medication Route Dose Verified Delivered Reason Notes Effect iveness by by 8:23:10 Heparin Flush added 1 Romario Doss used for Bag to bags Hieu Hgaen MD procedure (1000units/500ml field TATE NS) 8:23:27 Lidocaine 1% added 20ml Romario Doss used for to vial Hieu Hagen MD procedure field TATE 8:26:05 Versed I.V. 1 mg Romario Garcia for Mayur Hagen RN sedation 8:26:18 Fentanyl I.V. 50 Romario Ruizi for mcg Mayur Hagen RN sedation 8:29:01 Fentanyl I.V. 50 Romario Ruizi for mcg Mayur Hagen RN sedation 8:29:08 Versed I.V. 1 mg Romario Garcia for Mayur Hagen RN sedation Procedure Log Time Note 8:00:36 Patient Height : 66 inches 8:00:45 Patient Weight : 146 lbs 8:07:41 Time tracking: Regular hours (M-F 7:00 - 5:00) 8:08:30 Plan of Care:Hemodynamics will remain stable., Cardiac rhythm will remain stable., Comfort level will be maintained., Respiratory function will remain adequate., Patient/ family verbilizes understanding of procedure., Procedure tolerated without complication., Recovers from procedure without complications.. 8:08:38 Patient received from Outpatients to IR Alert and oriented. Tansferred to table in Supine position. 8:08:40 Signed procedure consent form obtained from patient. 8:08:51 ECG and BP/O2 sat monitors applied to patient. 8:08:54 Vital chart was started 8:09:45 Baseline sample Acquired. 8:09:48 Full Disclosure recording started 8:09:49 8:09:53 H&P Date Dictated: 03/13/2019 Within 30 days and on chart.. 8:09:55 Pre-procedure instructions explained to patient. 8:09:56 Pre-op teaching completed and patient verbalized understanding. 8:09:58 Family unavailable. 8:10:01 Patient NPO since Midnight. 8:10:18 Patient allergic to Sulfa drugs 8:10:21 Is the patient allergic to Iodine/contrast media? No. 8:10:23 Is patient on blood thinner?No 8:10:26 Patient diabetic? Yes. 8:10:29 If diabetic: On Metformin? Yes 8:10:40 If on Metformin: Last Dose? 03/12/2019 8:10:56 ----Pre-sedation anethsthesia assessment.---- 8:11:00 Previous problem with sedation/anesthesia? No ? 8:11:05 Snore? Yes 8:11:07 Sleep apnea? No 8:11:11 Deviated septum? No 8:11:14 Opens mouth fully? Yes 8:11:24 Sticks out tongue? Yes 8:11:31 Airway obstruction? No ? 8:11:35 Dentures? No ? 8:11:38 8:11:47 IV patent on arrival in right hand with D5/.45%NaCl at KVO. 8:12:01 Right abdomen area was prepped with chlora-prep and draped in sterile fashion 8:12:22 8:12:28 Use device set IR Diagnostic 8:12:31 Tegaderm 4 x 4 ([id number]) opened to sterile field. 8:12:31 Sterile Angiographic Pack opened to sterile field. 8:12:33 Bag Decanter () opened to sterile field. 8:12:39 8:23:10 Heparin Flush Bag (1000units/500ml NS) 1 bags added to field was administered by Romario Hagen MD; used for procedure; 8:23:27 Lidocaine 1% 20ml vial added to field was administered by Romario Hagen MD; used for procedure; 8:23:56 Physician arrived 8:24:11 --------ALL STOP TIME OUT------ 8:24:12 Final Timeout: patient, procedure, and site verified with staff and physician. All members of the team are in agreement. 8:24:18 Procedure started. 8:24:24 Local anesthetic to Abdominal area with Lidocaine 1% by Romario Hagen MD.INITIAL ACCESS ONLY 8:26:05 Versed 1 mg I.V. was administered by Radha Merchant RN; for sedation; 8:26:18 Fentanyl 50 mcg I.V. was administered by Radha Merchant RN; for sedation; 8:29:01 Fentanyl 50 mcg I.V. was administered by Radha Merchant RN; for sedation; 8:29:08 Versed 1 mg I.V. was administered by Radha Merchant RN; for sedation; 8:33:27 AMPLATZ Super stiff Straight 260cm wire ([id number]) opened to sterile field. 8:33:28 GLIDE WIRE Angled Super Stiff 180cm ([id number]) opened to sterile field. 8:33:29 GLIDE CATHETER 5FR ANGLED 65cm (CG507) opened to sterile field. 8:33:30 St Nick 10FR 23CM sheath opened to sterile field. 8:42:30 biliary tube removed 8:42:40 Procedure ended.(Physican Out) 8:42:57 Fluoroscopy time 02.90 minutes. 8:43:02 Fluoroscopy dose: 121 mGy 8:43:02 Flurop Dose total: 121 8:43:07 Contrast amount:Isovue 300 55ml. 8:52:18 Report given to Outpatients. 8:54:39 Patient transfered to Outpatients with Stretcher. 8:55:43 Vital chart was stopped Device Usage Item Name Manufacture Quantity Catalog Hospital Part Current Minimal Lot# / Number Charge Number Stock Stock Serial# Code Tegaderm 4 x 3M 1 [id number] 4 (1626W) Sterile Cardinal 1 [id number] [id number] 5 Angiographic Health Pack Bag Decanter Microtek 1 2001S 202813 [id number] [id number] 5 (2001S) [employer] AMPLATZ [place] 1 [id number] 774490 58845 185842 5 Super stiff Scientific Straight 260cm wire ([id number]) GLIDE WIRE Terumo 1 [id number] 610196 932550 5 Angled Super Stiff 180cm (QA1955) GLIDE Terumo 1 [id number] 967904 648855 5 CATHETER 5FR ANGLED 65cm (CG507) St Nick 10FR St Nick 1 [id number] 218478 169104 5 23CM sheath Signature Audit [place] Stage Time Signature Unsigned Intra-Procedure 03/13/2019 Ursula Mcguire 8:55:39 AM RT(R) [address] [place] [address]
[~2019-03-13 05:53] MED LIST changes: -ANTIBIOTIC
[2019-03-13 06:12] LABS: BASOPHILS 0.3 % (0-2); EOSINOPHILS 5.1 % (0-7); HEMATOCRIT 35.7 % (42.0-54.0); HEMOGLOBIN 11.8 g/dL (13.5-17.5); IMMATURE GRANULOCYTES 0.3 % (0-5); LYMPHOCYTES 44.6 % (15-50); MCH 30.4 pg (26.0-34.0); MCHC 33.1 g/dL (31.0-37.0); MEAN PLATELET VOLUME 8.8 fL (7.4-10.4); MONOCYTES 8.6 % (2-11); NEUTROPHILS 41.1 % (40-80); PLATELET COUNT 243 10x3/uL (130-400); RBC 3.88 10x6/uL (4.20-6.10); RDW 14.9 % (11.5-14.5)
[2019-03-13 06:36] LABS: ALBUMIN 3.4 g/dL (3.4-5.0); ALKALINE PHOSPHATASE 101 U/L (46-116); ALT (SGPT) 28 U/L (10-68); BILIRUBIN - DIRECT 0.17 mg/dL (0.00-0.30); BILIRUBIN - INDIRECT 0.15 mg/dL (0.00-1.00); BILIRUBIN - TOTAL 0.32 mg/dL (0.2-1.3); CALC OSMOLALITY 284 mosm/kg (275-300); CALCIUM 9.6 mg/dL (8.5-10.1); CARBON DIOXIDE 28.6 mmol/L (21.0-32.0); CHLORIDE - SERUM 106 mmol/L (98-107); CREATININE - SERUM 0.9 mg/dL (0.6-1.3); GLUCOSE 99 mg/dL (74-106); POTASSIUM - SERUM 3.7 mmol/L (3.5-5.1); SODIUM 143 mmol/L (136-145); UREA NITROGEN 13 mg/dL (7-18); eGFR NON AFRICAN AMERICAN 90 mL/min (90-120)
[2019-03-13 06:44] LABS: APTT 31.5 SECONDS (22.8-39.4); PROTIME 12.7 SECONDS (11.6-15.0)
[2019-03-13] MEDS ORDERED: ANTIBIOTIC (07:04)
[2019-03-13 07:17] VITALS: BP 118/67; BMI 23.6
--- NOTE | 2019-03-13 09:52 | NUR ---
0933 IV DC'D. CATHETER INTACT. NO BLEEDING AT SITE. BANDAID APPLIED.
== END 2019-03-13 10:15 | disposition home or self-care (01) ==
LOC: D.SP 05:53 → D.RAD 08:00 → D.SP 08:00
PROVIDERS: ATTEND General Practice
DX: K80.50 Calculus of bile duct without cholangitis or cholecystitis without obstruction (principal); Z46.59 Encounter for fitting and adjustment of other gastrointestinal appliance and device; Z01.812 Encounter for preprocedural laboratory examination

== ENCOUNTER → 2019-03-21 13:30 | Outpatient (CLI) | payer MEDICARE, OTHER ==
[2019-03-13 07:17] VITALS: BMI 23.6
[~2019-03-21 13:30] MED LIST changes: +ANTIBIOTIC
== END | disposition home or self-care (01) ==
LOC: D.CT 13:30
PROVIDERS: ATTEND General Practice
DX: K80.40 Calculus of bile duct with cholecystitis, unspecified, without obstruction (principal)

== ENCOUNTER → 2019-08-07 09:41 | Outpatient (CLI) | payer MEDICARE, OTHER | END | disposition home or self-care (01) | LOC: D.CT 09:41 | PROVIDERS: ATTEND Surgery | DX: K43.2 Incisional hernia without obstruction or gangrene (principal) ==

== ENCOUNTER 2020-04-07 09:04 | Inpatient (IN) | payer MEDICARE, OTHER ==
[~2020-04-07] VITALS: Ht 167.6 cm; Wt 72.6 kg
[~2020-04-07 09:04] MED LIST changes: +LIPITOR20 MG PO; +PATADAY2.5 ML EACH EYE
[2020-04-07 09:48] LABS: HEMOGLOBIN 15.2 g/dL (13.5-17.5); MCH 31.7 pg (26.0-34.0); MCHC 33.8 g/dL (31.0-37.0); MCV 93.9 fL (80.0-100.0); MEAN PLATELET VOLUME 8.9 fL (7.4-10.4); RBC 4.79 10x6/uL (4.20-6.10); RDW 13.1 % (11.5-14.5); WBC 8.7 10x3/uL (4.8-10.8)
[2020-04-07 09:52] LABS: ANION GAP 9.5 mmol/L (8-16); CALCIUM 9.1 mg/dL (8.5-10.1); CREATININE - SERUM 1.3 mg/dL (0.6-1.3); POTASSIUM - SERUM 4.5 mmol/L (3.5-5.1)
[2020-04-07 10:04] VITALS: BP 111/67; BMI 25.8
--- NOTE | 2020-04-07 16:40 | NUR ---
CALL PLACED TO ELDER KRAFT DIGESTER OPERATOR, THIS NURSE SPOKE WITH ELDER AND REQUESTED AN SCD PUMP AND ASSEMBLER PRODUCT PUMP TO BE ABLE TO FOLLOW ORDERS, THIS EQUIPMENT NOT AVAILABLE IN THIS DEPARTMENT AT THIS TIME. ELDER STATES THAT THE ROOM THE PATIENT IS TO BE TRANSFERRED TO ON MED/SURG DEPARTMENT IS BEING CLEANED RIGHT NOW AND THE PATIENT CAN GET THIS EQUIPMENT IN USE ONCE THE ROOM IS READY AND PATIENT IS TRANSFERRED SINCE THAT SHOULD HAPPEN SHORTLY
--- NOTE | 2020-04-07 17:30 | NUR ---
PATIENT TRANSFERRED TO ROOM 2240 TO RECEIVING NURSE KATHY VILLARREAL RN. PATIENT AWAKE, ALERT, IN NO DISTRESS. TRANSFERRED BY STRETCHER.
[2020-04-07 19:41] VITALS: BP 143/71; BMI 25.8
[2020-04-07 20:00] VITALS: BP 120/74
[2020-04-08 04:00] VITALS: BP 101/65
[2020-04-08 06:22] LABS: HEMATOCRIT 39.9 % (42.0-54.0); HEMOGLOBIN 13.3 g/dL (13.5-17.5); LYMPHOCYTES 14.1 % (15-50); MCH 31.3 pg (26.0-34.0); MCHC 33.3 g/dL (31.0-37.0); MCV 93.9 fL (80.0-100.0); MEAN PLATELET VOLUME 8.9 fL (7.4-10.4); PLATELET COUNT 223 10x3/uL (130-400); RBC 4.25 10x6/uL (4.20-6.10); RDW 12.9 % (11.5-14.5); WBC 10.6 10x3/uL (4.8-10.8)
[2020-04-08 07:02] LABS: ANION GAP 13.1 mmol/L (8-16); BILIRUBIN - TOTAL 0.28 mg/dL (0.2-1.3); CALCIUM 8.1 mg/dL (8.5-10.1); CARBON DIOXIDE 23.6 mmol/L (21.0-32.0); CREATININE - SERUM 1.1 mg/dL (0.6-1.3); POTASSIUM - SERUM 4.7 mmol/L (3.5-5.1); PROTEIN - SERUM 6.3 g/dL (6.4-8.2)
--- NOTE | 2020-04-08 07:44 | NUR ---
PT ALERT AND ORIENTED X4 UPON ENTERING, UP ADLIB. ROOM AIR, LEFT HAND D5LR WITH 120K @ 125. OPEN HERNIA REPAIR WITH TRANSVERSE INCISION, RIGHT SIDE MELODIE DRAIN. MORPHINE FLOWER CUTTER 1.10.10. RESTING COMRFORTABLY IN BED. DENIES ANY NEEDS. WILL CONTINUE TO MONITOR.
--- NOTE | 2020-04-08 08:19 | OP ---
PATIENT NAME: LIDIA GOFF MEDICAL RECORD: [id number] :51 LOCATION:[facility] ADMISSION DATE:04/07/20 SURGEON: JENNY BRYAN MD DATE OF OPERATION: 04/07/2020 SURGEON: Jenny Bryan MD PREOPERATIVE DIAGNOSIS: History of cholecystectomy with common bile duct exploration for cholangitis. POSTOPERATIVE DIAGNOSIS: History of cholecystectomy with common bile duct exploration for cholangitis. PROCEDURE PERFORMED: Incisional hernia repair with Ventralight ST mesh 15x20 cm. ANESTHESIA: General. COMPLICATIONS: None. SPECIMENS: Hernia sac. ESTIMATED BLOOD LOSS: 75 cc. OPERATIVE COURSE: After consent was obtained, the patient was taken to the operating room and placed in the supine position on the operating table. Next, general anesthesia was given via endotracheal intubation after a timeout was performed to confirm the correct patient and procedure. The abdomen was prepped and draped in typical sterile fashion. Ioban dressing was placed. The patient's previous right subcostal incision was opened with a 10-blade scalpel. Dissection continued through subcutaneous tissue with electrocautery. The hernia sac was excised. The fascial edges were identified. Once the fascial edges were identified, subcutaneous tissue was dissected off the anterior fascial wall 5 cm in all directions. The incisional hernia was 10 cm in length. A 15 x 20 cm mesh was placed into the abdomen, it was secured at the medial and lateral borders with 0 Prolene transfascial sutures. It was secured anteriorly using the SecureStrap hernia tacking device. Inferiorly, the mesh was pulled taut and fixated with transfascial 0 Prolene sutures with the mesh in good position. The fascial edges were closed with interrupted [id number] 0 Prolene suture. A MELODIE drain was placed in the subcutaneous tissue. The skin was closed with britt. At the end of the case, all needle and instrument counts were correct. No complications occurred. The patient was extubated and transferred to PACU in stable condition. TRANSINT:[id number] Voice Confirmation ID: [id number] DOCUMENT ID: [id number] JENNY BRYAN MD at 0819 CC: [id number] DICTATION DATE: 04/07/20 1526 STAFF COUNSELOR: 04/07/20 2337 ADM IN [address] [place] [address]
[2020-04-08 09:38] VITALS: BP 110/85
--- NOTE | 2020-04-08 09:44 | NUR ---
PT ALERT AND ORIENTED UPON ENETERING. ADMINISTERED MEDICATION, NO DIFFICULTIES. RESTING IN BED, DENIES ANY NEEDS. WILL CONTINUE TO MONITOR.
--- NOTE | 2020-04-08 11:01 | NUR ---
PLACED NEW MORPHINE SEWAGE DISPOSAL WORKER IN CHANNEL. RESTING COMFORTABLY. DENIES ANY OTHER NEEDS. WILL CONTINUE TO MONITOR.
[2020-04-08 13:00] VITALS: BP 126/68
--- NOTE | 2020-04-08 15:07 | NUR ---
STARTED IV ABX. PT RESTING IN BED WITH EYES CLOSED. BREATHING EVEN AND UNLABORED. NO S/S OF DISTRESS NOTED AT THIS TIME. WILL CONTINUE TO MONITOR.
[2020-04-08 15:09] VITALS: Ht 167.6 cm; Wt 72.6 kg
[2020-04-08 17:55] VITALS: BP 126/66
--- NOTE | 2020-04-08 18:00 | NUR ---
I have reviewed this patient and I concur with the Shift Assessment completed by the Licensed Practical Nurse today this shift.
--- NOTE | 2020-04-08 18:09 | NUR ---
ADMINISTERED MEDICATION, TOLERATED WELL. RESTING IN BED. DENIES ANY NEEDS. WILL CONTINUE TO MONITOR.
[2020-04-08 20:00] VITALS: BP 118/64
[2020-04-09 04:00] VITALS: BP 128/77
[2020-04-09 08:30] VITALS: BP 136/77
--- NOTE | 2020-04-09 10:16 | NUR ---
PATIENT UP WALKING HALLS. HE HAS COMPLETED 2 LAPS THIS MORNING 500 FT TOTAL. [facility]
[2020-04-09 12:00] VITALS: BP 139/80
--- NOTE | 2020-04-09 13:56 | NUR ---
PATIENT GAVE PERMISSION FOR ME TO SPEAK WITH DAUGHTER ELEONORA
--- NOTE | 2020-04-09 16:23 | NUR ---
PT PROVIDED PRUNE JUICE X3. INSTRUCTED TO SIP ON IT. VANILLA ICE CREAM AND STRAWBERRY JELLO. DAUGHTER TOLD ME THAT PATIENT HAS A PROBLEM WITH BARRETS DISEASE IT IS BESIDES HAVING SURGERY AND PAIN MEDICATION. CL IN REACH. WCTM
[2020-04-09 16:40] VITALS: BP 134/76
[2020-04-09 20:00] VITALS: BP 131/65
[2020-04-10] VITALS: BP 113/68
[2020-04-10 04:00] VITALS: BP 109/67
[2020-04-10 09:17] VITALS: BP 134/74
[2020-04-10 13:17] VITALS: BP 141/75
[2020-04-10 17:31] VITALS: BP 120/74
--- NOTE | 2020-04-10 19:00 | NUR ---
REPORT GIVEN BY HOT TOP LINER HELPER
--- NOTE | 2020-04-10 19:40 | NUR ---
MET WITH PT. INTRODUCED MYSELF HIS NURSE FOR THE NIGHT. EXPLAINED THAT I WOULD BE BACK TO GET AN ASSESSMENT. HE VERBALIZED UNDERSTANDING.
[2020-04-10 20:00] VITALS: BP 104/60
--- NOTE | 2020-04-10 20:45 | NUR ---
ASSESSMENT COMPLETED. HEART SOUNDS ARE WNL, LUNGS SOUND CLEAR, BOWEL SOUNDS HEARD IN ALL 4 QUADRANTS. SKIN IS WARM AND DRY. PT HAS AN INCISION ON HIS ABD. CLOSED WITH LISA. INCISION IS OPEN TO AIR. NO DRAINAGE NOTED. THERE IS A MELODIE DRAIN THAT IS DRAINING A SMALL AMT OF SEROUS FLUID. PT STATES HE HAS HAD 6-7 BM'S TODAY. PT HAS A NEW IV IN THE RIGHT FOREARM 22G. HE HAS D5LR WITH 20 OF POTASSIUM RUNNING AT 40 ML/HR. HE AMBULATES AD JAYLEN IN THE HALLWAYS AND IN HIS ROOM.
--- NOTE | 2020-04-10 21:30 | NUR ---
PT IS RESTING QUIETLY IN HIS ROOM. NO C/O OF NEEDS AT THIS TIME.
--- NOTE | 2020-04-10 22:45 | NUR ---
PT IS IN BED RESTING WITH HIS EYES CLOSED. RESPIRATIONS EVEN AND NON LABORED. HE IS SNORING.
--- NOTE | 2020-04-11 00:10 | NUR ---
CONT. TO SLEEP QUIETLY WITH NO DISTRESS.
--- NOTE | 2020-04-11 02:05 | NUR ---
PT IS RESTING WITH HIS EYES CLOSED. RESPIRATIONS EVEN AND UNLABORED. IV CONT TO INFUSE.
--- NOTE | 2020-04-11 03:45 | NUR ---
FINISHING GIVING PT MEDS. HE IS SLEEPY BUT EASILY WAKED UP. HE HAS NO C/O OR NEEDS. HE NOW HAS HIS HEAD COVERED AND IS GOING BACK TO SLEEP.
[2020-04-11 04:00] VITALS: BP 93/52
--- NOTE | 2020-04-11 06:44 | NUR ---
PT SLEPT MOST OF THE SHIFT. HE HAS NO C/O OR NEEDS AT THIS TIME.
--- NOTE | 2020-04-11 07:05 | NUR ---
RESTING IN BED WITH EYES CLOSED. RESPIRATIONS EVEN AND UNLABORED. NO S/S OF ACUTE DISTRESS NOTED. MIDLINE INCISION TO ABDOMEN WITH LISA, AREA C/D. MELODIE DRAIN TO ABDOMEN. IV TO RIGHT FOREARM, D5 LR WITH 20 K+ INFUSING @ 40ML/HR. SITE PATENT WITHOUT REDNESS OR SWELLING. CALL LIGHT IN REACH. WILL CONTINUE TO MONITOR.
[2020-04-11 08:30] VITALS: BP 121/78
[2020-04-11] MEDS ORDERED: HYDROCODON-ACE1 EAC7 PO (08:33)
--- NOTE | 2020-04-11 10:13 | MORECARE ---
CASE MANAGEMENT DISCHARGE SUMMARY PATIENT: LIDIA GOFF UNIT: [id number] ADM DATE: 04/07/20 AGE: 64 : 51 SEX: M ROOM/BED: D.2240 AUTHOR: EDIN PERERA PHYSICIAN: REFERRING PHYSICIAN: JENNY KIRK MD DATE OF SERVICE: 04/11/20 Discharge Plan Patient Name: LIDIA GOFF Facility: [facility]:[place] : 1955 Planned Disposition: Anticipated Discharge Date: Discharge Date: Expected LOS: Initial Reviewer: [email or web address] Initial Review Date: 04/07/2020 Generated: 04/11/20 11:12 am Patient Name: LIDIA GOFF Page [id number] at 1013 All edits/amendments must be made on the electronic document DICTATION DATE: 04/11/20 1012 HEART SURGEON: ONEL 04/11/20 1012 RPT#: [id number] DC DATE: STATUS: ADM IN [facility] [address] [place] [address] END OF REPORT
--- NOTE | 2020-04-11 10:20 | MORECARE ---
CASE MANAGEMENT DISCHARGE SUMMARY PATIENT: LIDIA GOFF UNIT: [id number] ADM DATE: 04/07/20 AGE: 64 : 51 SEX: M ROOM/BED: D.2240 AUTHOR: DILMA,DOC PHYSICIAN: REFERRING PHYSICIAN: JENNY KIRK MD DATE OF SERVICE: 04/11/20 Discharge Plan Patient Name: LIDIA GOFF Facility: [facility]:[place] : 1955 Planned Disposition: Anticipated Discharge Date: Discharge Date: Expected LOS: Initial Reviewer: [email or web address] Initial Review Date: 04/07/2020 Generated: 04/11/20 11:20 am Comments DCP- Discharge Planning Updated by [id number]: Renée Laughlin on 04/11/20 9:[address] Patient Name: LIDIA GOFF Admission Status: Elective Accout number: [id number] Admission Date: 04-07-2020 : 1955 Admission Diagnosis: Attending: JENNY KIRK Current LOS: 4 Anticipated DC Date: Planned Disposition: Primary Insurance: MEDICARE A & B Discharge Planning Comments: CM met with patient at bedside after explaining CM role and obtaining verbal consent. CM discussed availability / needs of home health, REHAB and medical equipment. PATIENT DENIES ANY DISCHARGE NEEDS. IMM SIGNED. ANTICIPATE DC TO HOME TODAY. Rag Boiler: Renée Laughlin DCPIA - Discharge Planning Initial Assessment Updated by [email or web address]: Renée Laughlin on 04/11/20 10:14 am * Is the patient Alert and Oriented? Yes * PCP JENNIFER * Pharmacy [facility] * Preadmission Environment Home with Family * ADLs Independent * Additional services required to return to the preadmission environment? No * Can the patient safely return to the preadmission environment? Yes * Has this patient been hospitalized within the prior 30 days at any hospital? No Coverage Notice Reviewer: [id number] - Renée Laughlin Notice Issued Date-Time: 04/11/2020 10:16 Notice Type: IM Discharge Notice Notice Delivered To: Patient Relationship to Patient: Coal Cager Name: Delivery Method: HAND - Hand Delivered Pilar Days: Prior Verbal Notification: Recipient Understood Notice: Yes Recipient Signature: Yes Med Rec Note Co-signed by Attending: Coverage Notice Comment: Last DP export: 7/17/20 9:13 a Patient Name: LIDIA GOFF Page [phone] at 1020 All edits/amendments must be made on the electronic document DICTATION DATE: 04/11/20 1020 LANDSCAPE PAINTER: ONEL 04/11/20 1020 RPT#: [id number] DC DATE: STATUS: ADM IN [facility] [address] [place] [address] END OF REPORT
[2020-04-11] MEDS ORDERED: NICODERM CQ1 EAC3 TOPICAL (10:33)
--- NOTE | 2020-04-11 13:04 | NUR ---
PATIENT DISCHARGED HOME WITH FAMILY VIA WHEELCHAIR. DISCONTINUED IV, CATHETER TIP INTACT. WENT OVER DISCHARGE INSTRUCTIONS WITH PATIENT. GAVE PATIENT RX FOR NORCO 5 TO FILL AFTER DC. VERBALIZED UNDERSTANDING OF INSTRUCTIONS. DENIES ANYTHING FURTHER.
--- NOTE | 2020-04-11 16:56 | MORECARE ---
CASE MANAGEMENT DISCHARGE SUMMARY PATIENT: LIDIA GOFF UNIT: [id number] ADM DATE: 04/07/20 AGE: 64 : 51 SEX: M ROOM/BED: D.2240 AUTHOR: DILMA,DOC PHYSICIAN: REFERRING PHYSICIAN: JENNY KIRK MD DATE OF SERVICE: 04/11/20 Discharge Plan Patient Name: LIDIA GOFF Facility: [facility]:[place] : 1955 Planned Disposition: Anticipated Discharge Date: Discharge Date: 04/11/2020 Expected LOS: Initial Reviewer: [email or web address] Initial Review Date: 04/07/2020 Generated: 04/11/20 5:55 pm Comments DCP- Discharge Planning Updated by [email or web address]: Renée Laughlin on 04/11/20 9:[address] Patient Name: LIDIA GOFF Admission Status: Elective Accout number: [id number] Admission Date: 04-07-2020 : 1955 Admission Diagnosis: Attending: JENNY KIRK Current LOS: 4 Anticipated DC Date: Planned Disposition: Primary Insurance: MEDICARE A & B Discharge Planning Comments: CM met with patient at bedside after explaining CM role and obtaining verbal consent. CM discussed availability / needs of home health, REHAB and medical equipment. PATIENT DENIES ANY DISCHARGE NEEDS. IMM SIGNED. ANTICIPATE DC TO HOME TODAY. Tin Container Straightener: Renée Laughlin DCPIA - Discharge Planning Initial Assessment Updated by [email or web address]: Renée Laughlin on 04/11/20 10:14 am * Is the patient Alert and Oriented? Yes * PCP JENNIFER * Pharmacy [facility] * Preadmission Environment Home with Family * ADLs Independent * Additional services required to return to the preadmission environment? No * Can the patient safely return to the preadmission environment? Yes * Has this patient been hospitalized within the prior 30 days at any hospital? No Coverage Notice Reviewer: [id number] - Renée Laughlin Notice Issued Date-Time: 04/11/2020 10:16 Notice Type: IM Discharge Notice Notice Delivered To: Patient Relationship to Patient: Ticket Taker Ferryboat Name: Delivery Method: HAND - Hand Delivered Pilar Days: Prior Verbal Notification: Recipient Understood Notice: Yes Recipient Signature: Yes Med Rec Note Co-signed by Attending: Coverage Notice Comment: Last DP export: 04/11/20 9:20 a Patient Name: LIDIA GOFF Page [phone] at 1656 All edits/amendments must be made on the electronic document DICTATION DATE: 04/11/201654 BRANCH CREDIT COUNSELOR: ONEL 04/11/201654 RPT#: [id number] DC DATE:04/11/20 STATUS: DIS IN [facility] [address] [place] [address] END OF REPORT
== END 2020-04-11 13:06 | disposition home or self-care (01) | DRG 355 ==
LOC: D.OPS 09:04 → D.PAN 12:00 → D.OPS 12:00 → D.MS 17:27 → D.OPS 17:29 → D.MS 04-11 13:06
PROVIDERS: Anesthesiology; ADMIT Surgery; ATTEND Surgery
PROC: 0WUF0JZ Supplement Abdominal Wall with Synthetic Substitute, Open Approach (ICD-10-PCS; principal; 2020-04-07 11:30)
DX: K43.2 Incisional hernia without obstruction or gangrene (principal); F17.200 Nicotine dependence, unspecified, uncomplicated